=== PATIENT | female | born 1945 | race Caucasian/White ===

== ENCOUNTER → 2017-08-08 11:14 | Outpatient (CLI) | payer MEDICARE, SELFPAY ==
[2017-08-08 12:46] LABS: Hematocrit 28.9 % (37-47); Hemoglobin 8.8 g/dl (12.0-15.0); Mean Corp Hgb Conc 30.4 g/gl (32-36); Mean Corpuscular Hgb 30.2 pg (27.0-32.0); Mean Corpuscular Volume 99.3 fL (81-99); Mean Platelet Vol. 11.2 fl (6.2-12.0); Platelet Count 283 K/mm3 (150-450); RBC Distribution Width CV 14.5 % (11.6-14.6); RBC Distribution Width SD 50.1 fl (35.1-43.9); Red Blood Count 2.91 M/mm3 (4.2-5.4); Scan Indicated on CBC? Y/N NO; White Blood Count 9.8 K/mm3 (4.4-11.0)
[2017-08-08 13:04] LABS: International Normalized Ratio 2.3; Prothrombin Time (Protime)PT. 25.3 SECONDS (11.7-14.9)
== END ==
PROVIDERS: Physician Assistant Medical; Family Provider Family Medicine; PCP Family Medicine; Visit Provider Internal Medicine Cardiovascular Disease
DX: D62 Acute posthemorrhagic anemia (principal); Z79.01 Long term (current) use of anticoagulants; K92.2 Gastrointestinal hemorrhage, unspecified; Z95.1 Presence of aortocoronary bypass graft; E87.6 Hypokalemia; N18.3 Chronic kidney disease, stage 3 (moderate); I25.10 Atherosclerotic heart disease of native coronary artery without angina pectoris; Z95.2 Presence of prosthetic heart valve; Z98.890 Other specified postprocedural states; I70.1 Atherosclerosis of renal artery; I35.9 Nonrheumatic aortic valve disorder, unspecified; I34.0 Nonrheumatic mitral (valve) insufficiency; R53.83 Other fatigue
CPT/HCPCS: 36415; 85027; 85610

== ENCOUNTER → 2017-08-15 15:36 | Outpatient (CLI) | payer MEDICARE, SELFPAY ==
--- NOTE | 2017-08-15 15:43 | CT_ITS ---
STUDY: CTA NECK WITH CONTRAST BILATERAL REASON FOR EXAM: Female, 72 years old. Bilateral carotid stenosis. History of right carotid endarterectomy. RADIATION DOSAGE (If Supplied By Facility): CTDIvol = ( 17.73 ) mGy, DLP = ( 959.25 ) mGycm. Individualized dose optimization techniques were used for this CT.? TECHNIQUE: Axial images of the extracranial carotid arteries at administration of 75 mL Isovue 370 intravenous contrast with sagittal and coronal reconstructions. COMPARISON: July 25, 2016. FINDINGS: Atherosclerotic calcification of the visualized aortic arch. Normal takeoff of the great vessels. There is atherosclerotic calcification of the origins of the great vessels without a hemodynamically significant stenosis. Extensive calcification of the right common carotid artery with a 60-70% narrowing proximal to the bifurcation unchanged. Moderate calcification of the carotid bulb. Minimal atherosclerotic calcification of the proximal right internal carotid artery. Mild atherosclerotic calcification of the distal internal carotid artery upstream, slightly proximal to the skull base. Normal right external carotid artery. No hemodynamically significant stenosis or aneurysmal dilatation of the internal carotid artery. Moderate atherosclerotic calcification of the left common carotid artery. Moderate calcification of the carotid bulb. Atherosclerotic plaque with a 40% stenosis of the proximal left internal carotid artery slightly worse since the prior study. Normal left external carotid artery. No significant stenosis upstream. Normal bilateral vertebral arteries. CT/CTA Neck W/WO Contrast IMPRESSION: No hemodynamically significant stenoses of the internal carotid arteries. 40% stenosis of the proximal left internal carotid artery slightly worse since the prior study. 60-70% stenosis of the distal right common carotid artery upstream not significantly changed. Extensive atherosclerotic calcification of the common carotid artery and carotid bulb bilaterally. Electronically Signed: Mk Reyes MD at 7:40 EDT , Service support ,
[2017-08-15 16:01] LABS: CREATININE FINGERSTICK 1.2 mg/dL (0.55-1.02)
== END ==
PROVIDERS: Family Provider Family Medicine; PCP Family Medicine; Visit Provider Surgery Vascular Surgery
DX: I65.23 Occlusion and stenosis of bilateral carotid arteries (principal)
CPT/HCPCS: 70498; Q9967; A4216

== ENCOUNTER → 2017-09-16 09:42 | Outpatient (CLI) | payer MEDICARE, SELFPAY ==
[2017-09-16 10:29] LABS: Hematocrit 31.7 % (37-47)
[2017-09-16 10:42] LABS: International Normalized Ratio 2.3; Prothrombin Time (Protime)PT. 25.6 SECONDS (11.7-14.9)
[2017-09-16 11:09] LABS: Anion Gap 13 (5-15); BUN 43 mg/dL (7-18); BUN/Creat Ratio 29.7 RATIO (10-20); Calcium,Total 9.1 mg/dL (8.5-10.1); Chloride 109 mmol/L (98-107); Creatinine, Serum 1.45 mg/dL (0.55-1.02); EST Glomerular Filtration Rate 38 mL/min (>60); Est Glom Filt Rate - Afr Amer 46 mL/min (>60); Glucose 150 mg/dL (74-106); Potassium 3.9 mmol/L (3.5-5.1); Sodium Level 145 mmol/L (136-145)
== END ==
PROVIDERS: Family Provider Family Medicine; PCP Family Medicine; Visit Provider Physician Assistant Medical
DX: I50.43 Acute on chronic combined systolic (congestive) and diastolic (congestive) heart failure (principal); N18.3 Chronic kidney disease, stage 3 (moderate); D62 Acute posthemorrhagic anemia
CPT/HCPCS: 36415; 80048; 85014; 85018; 85610

== ENCOUNTER → 2017-10-03 11:03 | Outpatient (CLI) | payer MEDICARE, SELFPAY ==
[2017-10-03 12:09] LABS: Anion Gap 7 (5-15); BUN 45 mg/dL (7-18); BUN/Creat Ratio 29.4 RATIO (10-20); Chloride 108 mmol/L (98-107); Creatinine, Serum 1.53 mg/dL (0.55-1.02); EST Glomerular Filtration Rate 36 mL/min (>60); Est Glom Filt Rate - Afr Amer 43 mL/min (>60); Glucose 153 mg/dL (74-106); Potassium 3.7 mmol/L (3.5-5.1); Sodium Level 143 mmol/L (136-145)
== END ==
PROVIDERS: Family Provider Family Medicine; PCP Family Medicine; Visit Provider Physician Assistant Medical
DX: I50.42 Chronic combined systolic (congestive) and diastolic (congestive) heart failure (principal)
CPT/HCPCS: 36415; 80048

== ENCOUNTER → 2018-01-30 13:59 | Outpatient (CLI) | payer MEDICARE, SELFPAY ==
[2018-01-30 15:03] LABS: Absolute Lymphocyte Count 0.47 X10^3/ul (0.83-4.51); Absolute Neutrophil Count 6.7 X10^3/uL (2.0-7.7); Eosinophil# 0.01 X10^3/uL; Eosinophils% 0.1 % (0-5); Hematocrit 34.9 % (37-47); Hemoglobin 11.4 g/dl (12.0-15.0); Lymphocyte # 0.47 X10^3/ul (4.0); Lymphocyte % 6.4 % (19-41); Mean Corp Hgb Conc 32.7 g/gl (32-36); Mean Corpuscular Hgb 33.3 pg (27.0-32.0); Mean Platelet Vol. 12.5 fl (6.2-12.0); Monocyte# 0.15 X10^3/uL; Neutrophil # 6.73 X10^3/uL (2.7-7.7); Neutrophil % 91.4 % (47-70); Platelet Count 199 K/mm3 (150-450); RBC Distribution Width CV 13.8 % (11.6-14.6); RBC Distribution Width SD 49.8 fl (35.1-43.9); Red Blood Count 3.42 M/mm3 (4.2-5.4); White Blood Count 7.4 K/mm3 (4.4-11.0)
[2018-01-30 15:05] LABS: Differential Indicated SCAN CRITERIA MET; POSITIVE COUNT NO; POSITIVE DIFFERENTIAL YES; POSITIVE MORPHOLOGY NO
[2018-01-30 15:25] LABS: Anion Gap 12 (5-15); BUN 66 mg/dL (7-18); BUN/Creat Ratio 38.2 RATIO (10-20); Calcium,Total 9.2 mg/dL (8.5-10.1); Chloride 102 mmol/L (98-107); Creatinine, Serum 1.73 mg/dL (0.55-1.02); EST Glomerular Filtration Rate 31 mL/min (>60); Est Glom Filt Rate - Afr Amer 37 mL/min (>60); Glucose 262 mg/dL (74-106); Potassium 3.3 mmol/L (3.5-5.1); Sodium Level 143 mmol/L (136-145)
== END ==
PROVIDERS: Family Provider Family Medicine; PCP Family Medicine; Visit Provider Physician Assistant Medical
DX: I50.42 Chronic combined systolic (congestive) and diastolic (congestive) heart failure (principal)
CPT/HCPCS: 36415; 80048; 85025

== ENCOUNTER → 2018-02-13 14:30 | Outpatient (CLI) | payer MEDICARE, SELFPAY ==
--- NOTE | 2018-02-13 14:34 | RAD_ITS ---
STUDY: X-RAY CHEST REASON FOR EXAM: Female, 72 years old. CHF shortness of breath TECHNIQUE: PA and lateral views of the chest. COMPARISON: August 19, 2016 chest Xray FINDINGS: There is slight blunting of the right costophrenic angle. The interstitial markings are mildly prominent slightly worse in prior study. There is no demonstrated pleural abnormality. There is postoperative Change overlying the left chest. Sternotomy wires are seen midline. There is moderate cardiomegaly. Normal mediastinum and christina. Normal visualized pulmonary arteries. Normal visualized aortic arch and descending thoracic aorta. There are diffuse degenerative changes of the visualized thoracic spine. Normal visualized ribs, clavicles, and shoulders. There is no demonstrated abnormality of the visualized soft tissue structures of the upper abdomen. RAD/Chest PA and Lateral IMPRESSION: Cardiomegaly status post sternotomy findings suspicious for mild CHF trace right effusion. Electronically Signed: Adela Gould MD at 17:50 EDT Tel , Service support ,
[2018-02-13 16:04] LABS: Absolute Lymphocyte Count 0.89 X10^3/ul (0.83-4.51); Basophil# 0.01 X10^3/uL; Basophil% 0.1 % (0-1); Eosinophils% 2.7 % (0-5); Hematocrit 33.1 % (37-47); Hemoglobin 10.5 g/dl (12.0-15.0); Lymphocyte # 0.89 X10^3/ul (4.0); Lymphocyte % 8.1 % (19-41); Mean Corp Hgb Conc 31.7 g/gl (32-36); Mean Corpuscular Hgb 32.9 pg (27.0-32.0); Mean Corpuscular Volume 103.8 fL (81-99); Mean Platelet Vol. 12.6 fl (6.2-12.0); Monocyte# 0.82 X10^3/uL; Monocyte% 7.4 % (0-10); Neutrophil # 9.03 X10^3/uL (2.7-7.7); Neutrophil % 81.7 % (47-70); Platelet Count 188 K/mm3 (150-450); RBC Distribution Width CV 14.6 % (11.6-14.6); RBC Distribution Width SD 55.7 fl (35.1-43.9); Red Blood Count 3.19 M/mm3 (4.2-5.4); White Blood Count 11.1 K/mm3 (4.4-11.0)
[2018-02-13 16:06] LABS: POSITIVE COUNT NO; POSITIVE DIFFERENTIAL NO; POSITIVE MORPHOLOGY NO
[2018-02-13 16:31] LABS: International Normalized Ratio 3.4; Prothrombin Time (Protime)PT. 34.8 SECONDS (11.7-14.9)
[2018-02-13 16:45] LABS: ALB/GLOB Ratio 0.9 RATIO (0.9-2.4); AST(SGOT) 17 U/L (15-37); Alanine Aminotransfer ALT/SGPT 29 U/L (13-56); Albumin, Serum 2.7 g/dL (3.2-5.0); Alkaline Phosphatase 76 U/L (45-117); Anion Gap 8 (5-15); BUN 55 mg/dL (7-18); BUN/Creat Ratio 31.4 RATIO (10-20); Calcium,Total 9.1 mg/dL (8.5-10.1); Chloride 105 mmol/L (98-107); Creatinine, Serum 1.75 mg/dL (0.55-1.02); EST Glomerular Filtration Rate 31 mL/min (>60); Est Glom Filt Rate - Afr Amer 37 mL/min (>60); Globulin 3.1 g/dL (2.2-4.2); Glucose 129 mg/dL (74-106); Potassium 3.4 mmol/L (3.5-5.1); Protein, Total 5.8 g/dL (6.4-8.2); Sodium Level 145 mmol/L (136-145)
== END ==
PROVIDERS: Internal Medicine Cardiovascular Disease; Family Provider Family Medicine; PCP Family Medicine; Referring Provider Physician Assistant Medical; Visit Provider Physician Assistant Medical
DX: I50.42 Chronic combined systolic (congestive) and diastolic (congestive) heart failure (principal); I50.43 Acute on chronic combined systolic (congestive) and diastolic (congestive) heart failure; Z79.01 Long term (current) use of anticoagulants; Z95.2 Presence of prosthetic heart valve
CPT/HCPCS: 36415; 71046; 80053; 83880; 85025; 85610

== ENCOUNTER 2018-02-16 14:28 | Inpatient (IN) | payer MEDICARE, SELFPAY ==
[2018-02-16 14:45] VITALS: PULSE 63
[2018-02-16 15:10] VITALS: BMI 30.7
--- NOTE | 2018-02-16 15:14 | PCM.HP.STD ---
<South Bhakta - Last Filed: 02/16/18 15:59> Problem List (1) CHF (congestive heart failure) Status: Acute (2) Hemoptysis Status: Acute (3) H/O mechanical aortic valve replacement Status: Chronic (4) CKD (chronic kidney disease), stage III Status: Chronic (5) Primary pulmonary hypertension Status: Chronic (6) Nicotine abuse Status: Chronic (7) S/P CABG x 3 Status: Chronic (8) Gastrointestinal bleed Status: Chronic (9) Chronic anticoagulation Status: Chronic (10) CAD (coronary artery disease) Status: Chronic (11) History of CEA (carotid endarterectomy) Status: Chronic (12) FELICIA (renal artery stenosis) Status: Chronic Comment: w stent (13) HLD (hyperlipidemia) Status: Chronic (14) Diabetes Status: Chronic History of Present Illness Date of Admission: 02/16/18 Chief Complaint: SOB The patient is a 72 year old F with a complicated PMhx including CAD with prior CABG, mechanical aortic valve on chronic anticoagulation, anemia, GI bleeding with no identifiable source, COPD, ongoing nicotine abuse, hx of breast cancer s/p mastectomy, prior CVA with residual right eye blindness, CKDII with hx of renal artery stenosis, DMt2, with hx of hemoptysis for at least one month, hospitalization about 1 month ago, who is being direct admitted to the PCU from Dr. Medina's office for worsening of CHF marked by increased SOB and LE edema. She saw Dr. Medina in the office on Friday for the same issues and was offered admission, however she wanted to try to be treated at home first. She was transitioned to torsemide and metolazone at that time, however her symptoms worsened at home with about 2-3 more pounds gained instead of losing. She also noted her BP was running low with systolic in the 70's and 80's. She also complains of intermittent chills and ongoing productive cough. Cough is sometimes dark red or pink. She had an outpatient CT and was supposed to see [facility] for ongoing hemoptysis. We do not have the results at this time. She appears mildly dyspneic however it not requiring O2 at this time. She has significant orthopnea and PND. She has increased wheezing. She denies CP, tightness, heaviness, and palpitations. She has been having LH/dizziness. She continues to smoke about 1 ppd. [] Past Medical History Past Medical History (Chronic Problems): Chronic Problems (Last Reviewed 11/28/17 @ 13:23 by Priyanka Castano) H/O mechanical aortic valve replacement (Chronic) CKD (chronic kidney disease), stage III (Chronic) Renal insufficiency (Chronic) Nonrheumatic mitral (valve) insufficiency (Chronic) Atherosclerotic heart disease of [place] coronary artery without angina pectoris (Chronic) CABG, MOLINA graft to LAD, SVG to OM 1, SVG to acute marginal; Primary pulmonary hypertension (Chronic) Aortic valve disease (Chronic) Sinus bradycardia (Chronic) Cardiac arrhythmia (Chronic) Abnormal electrocardiogram (Chronic) Aortocoronary bypass status (Chronic) CABG, MOLINA graft to LAD, SVG to OM 1, SVG to acute marginal; care home use of drug (Chronic) Other nonspecific abnormal cardiovascular system function study (Chronic) Palpitations (Chronic) Nicotine abuse (Chronic) Diastolic dysfunction (Chronic) Bilateral carotid bruits (Chronic) Orthostatic hypotension (Chronic) Systolic CHF, chronic (Chronic) 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 (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) Hypokalemia (Chronic) S/P CABG x 3 (Chronic) Gastrointestinal bleed (Chronic) Anemia due to blood loss, acute (Chronic) Chronic anticoagulation (Chronic) Chronic renal failure, stage 3 (moderate) (Chronic) CAD (coronary artery disease) (Chronic) History of aortic valve replacement with metallic valve (Chronic) History of CEA (carotid endarterectomy) (Chronic) FELICIA (renal artery stenosis) (Chronic) w stent HTN (hypertension) (Chronic) COPD (chronic obstructive pulmonary disease) (Chronic) Tobacco dependence (Chronic) Mitral valve insufficiency (Chronic) Tricuspid valve insufficiency (Chronic) HLD (hyperlipidemia) (Chronic) Diabetes (Chronic) Diastolic CHF, chronic (Chronic) Carotid artery disease (Chronic) Crohn's colitis (Chronic) Medical History: Medical History (Last Reviewed 11/28/17 @ 13:23 by Pryianka Castano) Renal insufficiency (Chronic) N28.9 Nonrheumatic mitral (valve) insufficiency (Chronic) I34.0 Atherosclerotic heart disease of [place] coronary artery without angina pectoris (Chronic) I25.10 CABG, MOLINA graft to LAD, SVG to OM 1, SVG to acute marginal; Primary pulmonary hypertension (Chronic) I27.0 Aortic valve disease (Chronic) I35.9 Sinus bradycardia (Chronic) R00.1 Cardiac arrhythmia (Chronic) I49.9 Palpitations (Chronic) R00.2 Diastolic dysfunction (Chronic) I51.9 Bilateral carotid bruits (Chronic) R09.89 Orthostatic hypotension (Chronic) I95.1 Systolic CHF, chronic (Chronic) I50.22 care home (current) use of anticoagulants (Chronic) Z79.01 Hypokalemia (Chronic) E87.6 CAD (coronary artery disease) (Chronic) I25.10 FELICIA (renal artery stenosis) (Chronic) I70.1 w stent HTN (hypertension) (Chronic) I10 HLD (hyperlipidemia) (Chronic) E78.5 Diastolic CHF, chronic (Chronic) I50.32 Dizziness and giddiness R42 Dyspnea R06.00 Edema R60.9 Heartburn R12 Palpitations R00.2 Allergies ciprofloxacin [From Cipro] Allergy (Verified 02/16/18 13:17) Swelling mesalamine Allergy (Verified 02/16/18 13:17) SOB/abdominal cramps Opioids - Morphine Analogues Adverse Reaction (Severe, Verified 02/16/18 13:17) emesis adhesive Adverse Reaction (Verified 02/16/18 13:17) Other clonidine Adverse Reaction (Verified 02/16/18 13:17) Other tramadol Adverse Reaction (Verified 02/16/18 13:17) Nausea/Vom/Diarrhea Home Medications: Ambulatory Orders Medication Instructions Recorded Albuterol Inhaler [Ventolin Hfa] 2 puff INHALATION Q6H PRN PRN 09/14/15 Levothyroxine [Synthroid] 75 mcg PO DAILY 09/14/15 Mometasone Furoate [Asmanex 220 2 puff INHALATION BID 09/14/15 mcg Twisthaler] Sertraline HCl [Zoloft] 100 mg PO QHS 09/14/15 Potassium Chloride [K-Dur] 40 meq PO BID 07/15/16 Simvastatin [Zocor] 80 mg PO QHS 07/15/16 Acetaminophen [Tylenol] 325 mg PO Q6H PRN PRN 11/25/16 amoxicillin 500 mg capsule See Rx Instructions PO .Dental 07/22/17 procedure cap glimepiride 1 mg tablet 1 mg PO QAM tab 07/25/17 allopurinol 100 mg tablet 100 mg PO DAILY tab 09/16/17 nitroglycerin 0.4 mg sublingual 0.4 mg SUBLINGUAL Q5-15M PRN #25 11/28/17 tablet tab bumetanide 1 mg tablet 2 mg PO BID tab 01/30/18 Calcitriol [Rocaltrol] 0.25 mcg PO DAILY 02/16/18 Ergocalciferol [Vitamin D] 50,000 unit PO Q30D 02/16/18 Metolazone [Zaroxolyn] 2.5 mg PO DAILY 02/16/18 Torsemide [Demadex] 20 mg PO .TID 02/16/18 Warfarin Sodium [Coumadin] 1 mg PO SUMOTUWETH 02/16/18 Warfarin [Coumadin ([facility])] 2 mg PO FRSA 02/16/18 Surgical History: Surgical History (Last Updated 02/16/18 @ 13:19 by Honey Oshea) H/O aortic valve replacement (Resolved) Z95.2 05/15/06 AVR with #23mm. 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 Denies: Fever, Weight Change HEENT: Denies: Head Aches, Sinus Congestion, Sinus Drainage Cardiovascular: Reports: Edema, Light Headedness, Orthopnea, Paroxysmal Noc. Dyspnea. Denies: Chest Pain, Chest Pressure, Chest Tightness, Heaviness, Palpitations Respiratory: Reports: Cough, Hemoptysis, Shortness of Breath, Shortness of breath at rest, Shortness of breath upon exertion, Sputum production, Wheezing Gastrointestinal: Denies: Abdominal Pain, Nausea, Vomiting Genitourinary: Denies: Dysuria Musculoskeletal: Denies: Joint Pain, Joint Tenderness Skin: Denies: Rash, Wounds Neurological: Denies: Numbness, Tingling, Focal weakness Psychiatric: Denies: Anxiety, Depression, Homicidal Ideations, Suicidal Ideations Hematologic/ Lymphatic: Denies: Easy Bruising, Easy Bleeding VTE Information - Inpt Only VTE Present on Admission: No VTE Mechan Device Prophylaxis: None VTE Pharm Prophylaxis ordered?: Yes Patient Problems: Active and Suspected Problems (Last Reviewed 11/28/17 @ 13:23 by Priyanka Castano) CHF (congestive heart failure) (Acute) Hemoptysis (Acute) - Physical Exam General: Alert, Oriented x3, Cooperative HEENT: Atraumatic, PERRLA, EOMI, Normocephalic Neck: Supple, No JVD, Negative Carotid Bruits Lungs: Diminished, Rales, Wheezes Cardiovascular: Regular rate, Murmur - 3/6 systolic murmur with closing snap Abdomen: Bowel Sounds Present, Soft, Non Tender Extremities: Capillary Refill Less than 3 Seconds, Edema Skin: No rashes, No breakdown Musculoskeletal: No Tenderness to Palpation of Joints or Extremities Neurological: Cranial nerves II-XII grossly intact Psych/Mental Status: Normal Affect, Appropriate, Alert and oriented to time, place, person, mood and affect Assessment/Plan All Active Problems (Last Reviewed 11/28/17 @ 13:23 by Priyanka Castano) CHF (congestive heart failure) (Acute) Hemoptysis (Acute) Chronic combined systolic and diastolic CHF (congestive heart failure) (Acute) H/O aortic valve replacement (Resolved) WILLIAN (acute kidney injury) (Resolved) Abnormal cardiac enzyme level (Resolved) Chest pain (Resolved) Dehydration (Resolved) Hypokalemia (Resolved) Renal abscess (Resolved) Sinus bradycardia (Resolved) 1. Acute on chronic intermediate CHF exacerbation - at this time this is the most acute issue, she has increased SOB, PND, orthopnea, LE edema with elevated BNP and CXR c/w CHF and failure of outpatient diuretics. D/w Dr. Medina, lasix IV to be started and he will see pt in house. Check troponin, fluid restrict, sodium restrict, ricardo wrap LE, repeat CXR. Obtain new Echo, last EF reportedly 45%. Pt not on beta hiro or ricardo inhibitor. 2. Hemoptysis - ongoing daily for at least a month. with recent mildly elevated white count, chills at home, hx heavy smoking, breast cancer. Her CXR on friday did not show pna. Consult pulmonary medicine. Consider diagnostic thoracentesis. Possibly underlying pneumonia or malignant process. Had outpatient CT, request record. Defer abx for now unless she develops fever or toxic appearance. 3. Hx Mechanical Aortic Valve - unfortunately the patient will need to remain on coumadin. This is also complicated by a hx of GI bleeding earlier this year. May need to consider transition to bioprosthetic valve with ongoing issues. Closely monitor H/H with coumadin therapy. 4. COPD - she is wheezy however likely 2/2 CHF. Add scheduled aerosols. Defer steroids at this time until evaluated by Pulm. Pt without increased O2 demand. 5. DMt2 - SSI, hold amaryl 6. Hx CAD prior CABG 7. CKD III - does not appear worse than baseline. Closely trend with increased diuretics. Prior renal artery stent. 8. HLD - statin 9. Hx CVA - residual right eye blindness. Warfarin/Statin 10. Hx FELICIA with prior stenting 11. Hx Carotid disease with prior CEA. 12. Nicotine abuse - patch if desired. Smoked since teenager. ~1ppd currently. 13. Hx BrCa - in remission s/p mastectomy. 14. Hypothyroid - synthroid 15. Anxiety - continue home meds. DVT ppx: check INR, continue coumadin DC planning: PTOT This patient was seen by South Bhakta PA-C under the supervision of Doctor Anderson. <Odilon Anderson F - Last Filed: 02/16/18 17:57> History of Present Illness The patient is a 72 year old F [] Past Medical History Medical History: Medical History (Last Reviewed 11/28/17 @ 13:23 by Priyanka Castano) Renal insufficiency (Chronic) N28.9 Nonrheumatic mitral (valve) insufficiency (Chronic) I34.0 Atherosclerotic heart disease of [place] coronary artery without angina pectoris (Chronic) I25.10 CABG, MOLINA graft to LAD, SVG to OM 1, SVG to acute marginal; Primary pulmonary hypertension (Chronic) I27.0 Aortic valve disease (Chronic) I35.9 Sinus bradycardia (Chronic) R00.1 Cardiac arrhythmia (Chronic) I49.9 Palpitations (Chronic) R00.2 Diastolic dysfunction (Chronic) I51.9 Bilateral carotid bruits (Chronic) R09.89 Orthostatic hypotension (Chronic) I95.1 Systolic CHF, chronic (Chronic) I50.22 care home (current) use of anticoagulants (Chronic) Z79.01 Hypokalemia (Chronic) E87.6 CAD (coronary artery disease) (Chronic) I25.10 FELICIA (renal artery stenosis) (Chronic) I70.1 w stent HTN (hypertension) (Chronic) I10 HLD (hyperlipidemia) (Chronic) E78.5 Diastolic CHF, chronic (Chronic) I50.32 Dizziness and giddiness R42 Dyspnea R06.00 Edema R60.9 Heartburn R12 Palpitations R00.2 Allergies ciprofloxacin [From Cipro] Allergy (Verified 02/16/18 13:17) Swelling mesalamine Allergy (Verified 02/16/18 13:17) SOB/abdominal cramps Opioids - Morphine Analogues Adverse Reaction (Severe, Verified 02/16/18 13:17) emesis adhesive Adverse Reaction (Verified 02/16/18 15:28) blisters tegaderm ok clonidine Adverse Reaction (Verified 02/16/18 15:28) Unknown tramadol Adverse Reaction (Verified 02/16/18 13:17) Nausea/Vom/Diarrhea Surgical History: Surgical History (Last Updated 02/16/18 @ 13:19 by Honey Oshea) H/O aortic valve replacement (Resolved) Z95.2 05/15/06 AVR with #23mm. on-x valve; Aortocoronary bypass status (Chronic) Z95.1 CABG, MOLINA graft to LAD, SVG to OM 1, SVG to acute marginal; History of renal stent Z98.890 H/O carotid endarterectomy Z98.890 History of cholecystectomy Z90.49 History of hysterectomy Z90.710 History of mastectomy Z90.10 left - *Family History Maternal Family History: Family History (Last Reviewed 02/16/18 @ 13:20 by Honey Oshea) Mother CVA (cerebral vascular accident) Hypertension Sister Myocardial infarction Breast cancer Sister CVA (cerebral vascular accident) Myocardial infarction Breast cancer Son Myocardial infarction CAD (coronary artery disease) - Physical Exam Vital Signs Temp Pulse Resp BP Pulse Ox 98.2 F 60 18 131/66 H 96 02/16/18 15:15 02/16/18 15:15 02/16/18 15:15 02/16/18 15:15 02/16/18 15:15 Oxygen Delivery Method Room Air Weight: 162 lb 14.746 oz Body Mass Index (BMI) 30.7 Laboratory Tests Past 24 Hrs 02/16/18 02/16/18 02/16/18 16:32 16:32 16:32 WBC 7.1 RBC 2.97 L Hgb 9.8 L Hct 30.5 L MCV 102.7 H MCH 33.0 H MCHC 32.1 RDW 14.6 RDW Differential 54.6 H Plt Count 163 MPV 11.8 Immature Gran % (Auto) 0.100 Neut % (Auto) 76.2 H Lymph % (Auto) 11.2 L [place] % (Auto) 8.3 Eos % (Auto) 3.9 Baso % (Auto) 0.3 Absolute Neuts (auto) 5.4 Absolute Lymphs (auto) 0.80 L Total Counted Not Reportable PT 31.8 H INR 3.1 Sodium 144 Potassium 2.9 L Chloride 105 Carbon Dioxide 30.0 Anion Gap 9 BUN 53 H Creatinine 1.81 H Estim Creat Clear Calc 21.82 Est GFR (MDRD) Af Amer 36 L Est GFR (MDRD) Non-Af 29 L BUN/Creatinine Ratio 29.3 H Glucose 123 H Calcium 8.6 Code Visit Addendum: Dr. Anderson I personally examined the patient and reviewed the chart. I agree with the above. 72-year-old female with a history of heart failure presenting in an acute exacerbation. 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 She is having increased shortness of breath orthopnea and lower extremity edema. Will plan to IV diuresis her CHF with Lasix 40 mg IV twice daily. Is also been having hemoptysis that has improved lately, however she does have a history of smoking and and it appears that she had an outpatient CT done on in [place] without contrast and it was indeterminant read of whether or not she had pneumonia or a mass. Given her hemoptysis, will plan to consult pulmonology for possible bronchoscopy once her cardiac issues improve. Her hemoptysis is complicated by a history of GI bleed and anticoagulation for mechanical aortic valve that was placed for aortic valve regurgitation. The likely culprit for the GI bleeding in the past is an AVM. Given the mechanical valve she will need to be continued on anticoagulation and therefore will monitor H&H's. Inpatient E&M: 12524 Init Hosp L3
[2018-02-16 15:15] VITALS: BP 131/66; PULSE 60; RESP 18; TEMP 36.8; O2SAT 96
[2018-02-16 15:41] VITALS: BMI 73.9
--- NOTE | 2018-02-16 16:12 | RAD_ITS ---
STUDY: X-RAY CHEST REASON FOR EXAM: Female, 72 years old. Shortness of breath TECHNIQUE: Frontal and lateral views of the chest were obtained. COMPARISON: February 13, 2018 FINDINGS: The lungs are hyperinflated. There are increased interstitial markings throughout the lungs. There are no focal airspace opacities. There is no demonstrated pleural abnormality. There is moderate enlargement of the cardiac silhouette. Sternotomy wires are present. An aortic valve prosthesis is present. The mediastinum and hilar regions are unremarkable. The central vessels are indistinct. There is atherosclerotic calcification of the thoracic aorta. There are diffuse degenerative changes of the visualized spine. The visualized ribs, clavicles, and shoulders are unremarkable. There are numerous surgical clips on the left side. RAD/Chest PA and Lateral IMPRESSION: There is moderate enlargement of the cardiac silhouette with vascular congestion. There is no obvious effusion. There is stable COPD with mild diffuse fibrosis. Electronically Signed: Karli Mancilla MD at 17:12 EDT Tel Direct: [phone], Service support ,
[2018-02-16 16:55] LABS: Absolute Neutrophil Count 5.4 X10^3/uL (2.0-7.7); Basophil# 0.02 X10^3/uL; Basophil% 0.3 % (0-1); Eosinophil# 0.28 X10^3/uL; Eosinophils% 3.9 % (0-5); Hematocrit 30.5 % (37-47); Hemoglobin 9.8 g/dl (12.0-15.0); Lymphocyte % 11.2 % (19-41); Mean Corp Hgb Conc 32.1 g/gl (32-36); Mean Corpuscular Volume 102.7 fL (81-99); Mean Platelet Vol. 11.8 fl (6.2-12.0); Monocyte# 0.59 X10^3/uL; Monocyte% 8.3 % (0-10); Neutrophil # 5.42 X10^3/uL (2.7-7.7); Neutrophil % 76.2 % (47-70); Platelet Count 163 K/mm3 (150-450); RBC Distribution Width CV 14.6 % (11.6-14.6); RBC Distribution Width SD 54.6 fl (35.1-43.9); Red Blood Count 2.97 M/mm3 (4.2-5.4); White Blood Count 7.1 K/mm3 (4.4-11.0)
[2018-02-16 16:57] LABS: POSITIVE COUNT NO; POSITIVE DIFFERENTIAL NO; POSITIVE MORPHOLOGY NO
[2018-02-16 17:02] LABS: International Normalized Ratio 3.1; Prothrombin Time (Protime)PT. 31.8 SECONDS (11.7-14.9)
[2018-02-16 17:07] LABS: Anion Gap 9 (5-15); BUN 53 mg/dL (7-18); BUN/Creat Ratio 29.3 RATIO (10-20); Calcium,Total 8.6 mg/dL (8.5-10.1); Chloride 105 mmol/L (98-107); Creatinine, Serum 1.81 mg/dL (0.55-1.02); EST Glomerular Filtration Rate 29 mL/min (>60); Est Glom Filt Rate - Afr Amer 36 mL/min (>60); Estimated Creatinine Clearance 21.82 ml/min; Glucose 123 mg/dL (74-106); Potassium 2.9 mmol/L (3.5-5.1); Sodium Level 144 mmol/L (136-145)
[2018-02-16] MEDS: Furosemide 40 MG/4 ML Vial IV (17:38)
[2018-02-16] MEDS: 0.9% NaCl Peripheral Flush Adult/Peds IV ×2 (17:38→20:08)
--- NOTE | 2018-02-16 17:44 | PCM.CONS.C ---
Problem List (1) Chronic combined systolic and diastolic CHF (congestive heart failure) Status: Acute (2) H/O mechanical aortic valve replacement Status: Chronic (3) Atherosclerotic heart disease of [place] coronary artery without angina pectoris Status: Chronic Qualifiers: [place] vs. transplanted heart: [place] heart Qualified Code(s): I25.10 - Atherosclerotic heart disease of [place] coronary artery without angina pectoris Comment: CABG, MOLINA graft to LAD, SVG to OM 1, SVG to acute marginal; (4) Aortocoronary bypass status Status: Chronic Comment: CABG, MOLINA graft to LAD, SVG to OM 1, SVG to acute marginal; (5) FELICIA (renal artery stenosis) Status: Chronic Comment: w stent (6) History of CEA (carotid endarterectomy) Status: Chronic (7) HLD (hyperlipidemia) Status: Chronic Qualifiers: (8) HTN (hypertension) Status: Chronic Qualifiers: Hypertension type: essential hypertension Qualified Code(s): I10 - Essential (primary) hypertension (9) Diabetes Status: Chronic (10) Renal insufficiency Status: Chronic (11) COPD (chronic obstructive pulmonary disease) Status: Chronic (12) Hemoptysis Status: Acute (13) Gastrointestinal bleed Status: Chronic (14) Anemia Status: Chronic Reason for Consult Date of Consultation: 02/16/18 History of Present Illness: The patient is a 72 year old white female with a past medical history of combined systolic/diastolic mediated CHF, status post aortic valve replacement with a mechanical aortic valve (23 mm ON X prosthetic mechanical mitral valve apparatus), CAD status post CABG (MOLINA to the LAD, SVG to the OM, SVG to the acute marginal), renal artery stenosis status post renal artery percutaneous intervention, carotid artery disease that is post carotid endarterectomy, hyperlipidemia, hypertension, diabetes mellitus, renal insufficiency, COPD, hemoptysis, history of GI bleeding, and anemia who is referred for concerns of continued acute on chronic combined systolic/diastolic mediated CHF. She has been undergoing evaluation and care as an outpatient for concerns of progressive shortness of breath/dyspnea as well as orthopnea and lower extremity peripheral pitting edema. This is in the setting of a history of hemoptysis for which she is pending future outpatient pulmonary evaluation care in [place], [place]. In the interim she has been evaluated in the outpatient setting and has her diuretics altered. Unfortunately she has had no significant improvement in her symptoms or her physical examination findings. She notes that her weight has actually gone up but not down. Thus status post review of her case this day in the outpatient setting it was recommended that she be further evaluated in the inpatient setting for her cardiopulmonary conditions, etc. She has denied ongoing chest discomfort. She has not noted any obvious palpitations or rapid heart rate. There is been no near syncope or syncope. She has had recent laboratory studies and chest x-rays. She has also had recent hospitalizations in [place], [place] for concerns of her symptoms, her hemoptysis, and a previous evaluation for gastrointestinal bleeding. She has received PRBCs in the past based upon concerns of her gastrointestinal bleeding process.[] Past Medical History Allergies/Adverse Reactions: Allergies ciprofloxacin [From Cipro] Allergy (Verified 02/16/18 13:17) Swelling mesalamine Allergy (Verified 02/16/18 13:17) SOB/abdominal cramps Opioids - Morphine Analogues Adverse Reaction (Severe, Verified 02/16/18 13:17) emesis adhesive Adverse Reaction (Verified 02/16/18 15:28) blisters tegaderm ok clonidine Adverse Reaction (Verified 02/16/18 15:28) Unknown tramadol Adverse Reaction (Verified 02/16/18 13:17) Nausea/Vom/Diarrhea Home Medications: Ambulatory Orders Medication Instructions Recorded Albuterol Inhaler [Ventolin Hfa] 2 puff INHALATION Q6H PRN PRN 09/14/15 Levothyroxine [Synthroid] 75 mcg PO DAILY 09/14/15 Mometasone Furoate [Asmanex 220 2 puff INHALATION BID 09/14/15 mcg Twisthaler] Sertraline HCl [Zoloft] 100 mg PO QHS 09/14/15 Potassium Chloride [K-Dur] 40 meq PO BID 07/15/16 Simvastatin [Zocor] 80 mg PO QHS 07/15/16 Acetaminophen [Tylenol] 325 mg PO Q6H PRN PRN 11/25/16 amoxicillin 500 mg capsule See Rx Instructions PO .Dental 07/22/17 procedure cap glimepiride 1 mg tablet 1 mg PO QAM tab 07/25/17 allopurinol 100 mg tablet 100 mg PO DAILY tab 09/16/17 nitroglycerin 0.4 mg sublingual 0.4 mg SUBLINGUAL Q5-15M PRN #25 11/28/17 tablet tab bumetanide 1 mg tablet 2 mg PO BID tab 01/30/18 Calcitriol [Rocaltrol] 0.25 mcg PO DAILY 02/16/18 Ergocalciferol [Vitamin D] 50,000 unit PO Q30D 02/16/18 Metolazone [Zaroxolyn] 2.5 mg PO DAILY 02/16/18 Torsemide [Demadex] 20 mg PO .TID 02/16/18 Warfarin Sodium [Coumadin] 1 mg PO SUMOTUWETH 02/16/18 Warfarin [Coumadin ([facility])] 2 mg PO FRSA 02/16/18 Past Medical History (Chronic Problems): Chronic Problems (Last Reviewed 11/28/17 @ 13:23 by Priyanka Castano) H/O mechanical aortic valve replacement (Chronic) CKD (chronic kidney disease), stage III (Chronic) Anemia (Chronic) Renal insufficiency (Chronic) Nonrheumatic mitral (valve) insufficiency (Chronic) Atherosclerotic heart disease of [place] coronary artery without angina pectoris (Chronic) CABG, MOLINA graft to LAD, SVG to OM 1, SVG to acute marginal; Primary pulmonary hypertension (Chronic) Aortic valve disease (Chronic) Sinus bradycardia (Chronic) Cardiac arrhythmia (Chronic) Abnormal electrocardiogram (Chronic) Aortocoronary bypass status (Chronic) CABG, MOLINA graft to LAD, SVG to OM 1, SVG to acute marginal; oysterman use of drug (Chronic) Other nonspecific abnormal cardiovascular system function study (Chronic) Palpitations (Chronic) Nicotine abuse (Chronic) Diastolic dysfunction (Chronic) Bilateral carotid bruits (Chronic) Orthostatic hypotension (Chronic) Systolic CHF, chronic (Chronic) oysterman (current) use of anticoagulants (Chronic) Hypokalemia (Chronic) S/P CABG x 3 (Chronic) Gastrointestinal bleed (Chronic) Anemia due to blood loss, acute (Chronic) Chronic anticoagulation (Chronic) Chronic renal failure, stage 3 (moderate) (Chronic) CAD (coronary artery disease) (Chronic) History of aortic valve replacement with metallic valve (Chronic) History of CEA (carotid endarterectomy) (Chronic) FELICIA (renal artery stenosis) (Chronic) w stent HTN (hypertension) (Chronic) COPD (chronic obstructive pulmonary disease) (Chronic) Tobacco dependence (Chronic) Mitral valve insufficiency (Chronic) Tricuspid valve insufficiency (Chronic) HLD (hyperlipidemia) (Chronic) Diabetes (Chronic) Diastolic CHF, chronic (Chronic) Carotid artery disease (Chronic) Crohn's colitis (Chronic) Surgical History: coronary bypass surgery, - - CABG (MOLINA to LAD; SVG to OM; SVG to acute marginal) AVR (23 mm ON-X valve) Psychiatric History: No pertinent psych hx AUDIT LEAD History: No pertinent AUDIT LEAD history - *Family History Maternal Family History: Family History (Last Reviewed 02/16/18 @ 13:20 by Honey Oshea) Mother CVA (cerebral vascular accident) Hypertension Sister Myocardial infarction Breast cancer Sister CVA (cerebral vascular accident) Myocardial infarction Breast cancer Son Myocardial infarction CAD (coronary artery disease) History Items: No pertinent history Lives: Alone Smoking Status: Heavy Smoker (>10/day) Tobacco Use: Cigarettes Alcohol: None Drugs: None Review of Systems - Review of Systems General: Denies: Fever, Night Sweats, Fatigue Cardiovascular: Reports: Shortness of Breath, Shortness of Breath at Rest, Shortness of Breath with Exertion, Orthopnea, PND, Peripheral Edema. Denies: Chest Discomfort, Palpitations, Lightheadedness, Dizziness, Near Syncope, Syncope Respiratory: Reports: Sputum Production, Hemoptysis, Shortness of Breath, Wheezing Gastrointestinal: Denies: Hematemesis, Hematochezia, Melena Genitourinary: Denies: Dysuria, Hematuria Skin: Denies: Rash Objective: Vital Signs Temp Pulse Resp BP Pulse Ox 98.2 F 60 18 131/66 H 96 02/16/18 15:15 02/16/18 15:15 02/16/18 15:15 02/16/18 15:15 02/16/18 15:15 Oxygen Delivery Method Room Air Weight: 162 lb 14.746 oz Body Mass Index (BMI) 30.7 02/16/18 16:32: WBC 7.1, RBC 2.97 L, Hgb 9.8 L, Hct 30.5 L, MCV 102.7 H, MCH 33.0 H, MCHC 32.1, RDW 14.6, RDW Differential 54.6 H, Plt Count 163, MPV 11.8, Immature Gran % (Auto) 0.100, Neut % (Auto) 76.2 H, Lymph % (Auto) 11.2 L, [place] % (Auto) 8.3, Eos % (Auto) 3.9, Baso % (Auto) 0.3, Absolute Neuts (auto) 5.4, Total Counted Not Reportable 02/16/18 16:32: PT 31.8 H, INR 3.1 02/16/18 16:32: Sodium 144, Potassium 2.9 L, Chloride 105, Carbon Dioxide 30.0, Anion Gap 9, BUN 53 H, Creatinine 1.81 H, Est GFR (MDRD) Af Amer 36 L, Est GFR (MDRD) Non-Af 29 L, BUN/Creatinine Ratio 29.3 H, Glucose 123 H, Calcium 8.6 ECHO: 08/20/2016: Left ventricle: LVEF 50%; postoperative septal wall motion; severe concentric LVH; moderate to severe left atrial enlargement; mild right atrial enlargement; mild to moderate mitral annular calcification; anterior leaflet diffuse mitral valve thickening; mild mitral valve stenosis; mild MR; moderate TR; stable appearing mechanical aortic valve apparatus; mild PI; estimated RV systolic pressure of 62 mmHg compatible pulmonary hypertension; decreased diastolic compliance Stress Test: 02/19/2011: Pharmacologic stress nuclear imaging study: Considered concerning for stress-induced myocardial ischemia in the mid to distal anterior and anteroapical segments with a gated LVEF of 58% Cardiac Cath: 02/18/2006: Elevated left ventricular end-diastolic pressure compatible decreased diastolic compliance; secondary pulmonary hypertension possibly related to underlying cardiovascular findings and/or separate pulmonary disease process; no obvious evidence of intracardiac shunting; left ventricle preserved with an LVEF of 60%; left main normal; LAD with mid vessel 50-75% stenosis; LCx with ostial 75-85% stenosis and mid 75% stenosis; RCA small nondominant vessel with no angiographically significant appearing disease; aortic valve with moderate to moderately severe AI; aortic root calcified; mitral valve with mild MR partially catheter/PVC induced PCI: 03/12/2011: [place] issue: Impression: Moderately severe systemic hypertension; three-vessel CAD with 2 of 3 patent grafts (SVG to OM occluded, SVG to RVM patent, MOLINA to LAD patent), LCx disease with recommendation for medical management, left renal artery stenosis-heavily calcified at the ostium-stented with a 5 mm express bare-metal stent CT Surgery: 05/15/2006: [facility]: MOLINA to LAD; SVG to the OM; SVG to the acute marginal branch; aortic valve replacement with a 23 mm ON X valve-mechanical prosthesis CXR: There evaluation: Increased cardiac silhouette compatible with cardiomegaly; calcification of the thoracic aorta; increased pulmonary vascularity; please see official report Assessment/Plan 1. 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 She has not had improvement with adjustment of outpatient medical therapy/diuretic therapy including combined diuretics. Thus she has been brought into the hospital for further evaluation and care. She will be monitored. Her laboratory studies will be followed. She is already had a follow-up chest x-ray. She will be treated medically. This will include IV diuretics. If she does not respond to pulsed IV furosemide therapy then she may have an attempt at continuous infusion IV furosemide therapy. She may need intermittent IV diuril therapy as well. 2. Status post aortic valve replacement-mechanical The present time the patient does have a underlying mechanical aortic valve apparatus. On examination she does appear to have a crisp prosthetic click. Based upon her ongoing issues she will be reassessed with a transthoracic echocardiogram to evaluate her aortic valve apparatus as well as her overall LV size, wall motion, and systolic function. She will need to continue AHA antibiotic prophylaxis as deemed appropriate. She will also need to continue anticoagulation therapy with warfarin/Coumadin with adjustment as deemed appropriate. 3. CAD status post CABG The patient has not had ongoing symptoms of classic angina pectoris nor has she been found to have evidence of acute coronary syndrome/[place]. She will be monitored and reassessed as deemed appropriate. Depending upon her clinical course she may or may not need further evaluation of her coronary or graft status noninvasively or invasively. 4. Peripheral arterial occlusive disease The patient does have a history of underlying renal artery stenosis having undergone left renal artery percutaneous intervention as noted above as well as carotid artery disease having undergone carotid endarterectomy. Depending upon her clinical course, vital signs, etc. consideration will be given as to whether or not she needs reassessment of her renal artery status. 5. Hyperlipidemia She will continue lipid-lowering therapy as deemed appropriate. 6. Hypertension Her blood pressures will be followed. Her medications can be adjusted as needed. 7. Diabetes mellitus She will continue under the care of internal medicine for this. 8. Renal insufficiency She does have a history of renal insufficiency. This has been chronic. She may have acute on chronic changes. Her renal function will be followed as she undergoes medical evaluation and care. 9. COPD She will need to continue evaluation care per internal medicine and potentially pulmonology. 10. Hemoptysis She has been having episodes of hemoptysis. The etiology has been unclear. She will continue evaluation care per internal medicine. She was pending future outpatient pulmonology evaluation in [place], [place]. Pending upon her course this may need to proceed while she is an inpatient at [facility]. 11. Gastrointestinal bleeding She does have a history of previous GI bleeding. She has been evaluated at other facilities for this in the past. She has received PRBCs in the past. 12. Anemia She does have evidence of anemia. This may be multifactorial such as anemia of chronic disease as well as blood loss secondary to concerns of hemoptysis and her previous GI bleeding history. Her H&H will need to be followed. Depending upon her level she may need PRBC transfusion. Of concern, with respect to her bleeding process, if these events continue, if she continues to have evidence of concerning anemia, then consideration may have to be given in the future as whether or not she would be considered by CT surgery for reevaluation for explant of her mechanical aortic valve prosthesis and implant of a bioprosthetic aortic valve prosthesis. Comment: The patient's case was discussed and reviewed with the patient and the [facility] staff. This note was generated with [employer] dictation software. It may contain incorrect words, spelling, and punctuation that were not noted in checking the note before signing.
--- NOTE | 2018-02-16 17:51 | CON.PCM_ITS ---
Problem List (1) Chronic combined systolic and diastolic CHF (congestive heart failure) Status: Acute (2) H/O mechanical aortic valve replacement Status: Chronic (3) Atherosclerotic heart disease of [place] coronary artery without angina pectoris Status: Chronic Qualifiers: [place] vs. transplanted heart: [place] heart Qualified Code(s): I25.10 - Atherosclerotic heart disease of [place] coronary artery without angina pectoris Comment: CABG, MOLINA graft to LAD, SVG to OM 1, SVG to acute marginal; (4) Aortocoronary bypass status Status: Chronic Comment: CABG, MOLINA graft to LAD, SVG to OM 1, SVG to acute marginal; (5) FELICIA (renal artery stenosis) Status: Chronic Comment: w stent (6) History of CEA (carotid endarterectomy) Status: Chronic (7) HLD (hyperlipidemia) Status: Chronic Qualifiers: (8) HTN (hypertension) Status: Chronic Qualifiers: Hypertension type: essential hypertension Qualified Code(s): I10 - Essential (primary) hypertension (9) Diabetes Status: Chronic (10) Renal insufficiency Status: Chronic (11) COPD (chronic obstructive pulmonary disease) Status: Chronic (12) Hemoptysis Status: Acute (13) Gastrointestinal bleed Status: Chronic (14) Anemia Status: Chronic Reason for Consult Date of Consultation: 02/16/18 History of Present Illness: The patient is a 72 year old white female with a past medical history of combined systolic/diastolic mediated CHF, status post aortic valve replacement with a mechanical aortic valve (23 mm ON X prosthetic mechanical mitral valve apparatus), CAD status post CABG (MOLINA to the LAD, SVG to the OM, SVG to the acute marginal), renal artery stenosis status post renal artery percutaneous intervention, carotid artery disease that is post carotid endarterectomy, hyperlipidemia, hypertension, diabetes mellitus, renal insufficiency, COPD, hemoptysis, history of GI bleeding, and anemia who is referred for concerns of continued acute on chronic combined systolic/diastolic mediated CHF. She has been undergoing evaluation and care as an outpatient for concerns of progressive shortness of breath/dyspnea as well as orthopnea and lower extremity peripheral pitting edema. This is in the setting of a history of hemoptysis for which she is pending future outpatient pulmonary evaluation care in [place], [place]. In the interim she has been evaluated in the outpatient setting and has her diuretics altered. Unfortunately she has had no significant improvement in her symptoms or her physical examination findings. She notes that her weight has actually gone up but not down. Thus status post review of her case this day in the outpatient setting it was recommended that she be further evaluated in the inpatient setting for her cardiopulmonary conditions, etc. She has denied ongoing chest discomfort. She has not noted any obvious palpitations or rapid heart rate. There is been no near syncope or syncope. She has had recent laboratory studies and chest x-rays. She has also had recent hospitalizations in [place], [place] for concerns of her symptoms, her hemoptysis, and a previous evaluation for gastrointestinal bleeding. She has received PRBCs in the past based upon concerns of her gastrointestinal bleeding process.[] Past Medical History Allergies/Adverse Reactions: Allergies ciprofloxacin [From Cipro] Allergy (Verified 02/16/18 13:17) Swelling mesalamine Allergy (Verified 02/16/18 13:17) SOB/abdominal cramps Opioids - Morphine Analogues Adverse Reaction (Severe, Verified 02/16/18 13:17) emesis adhesive Adverse Reaction (Verified 02/16/18 15:28) blisters tegaderm ok clonidine Adverse Reaction (Verified 02/16/18 15:28) Unknown tramadol Adverse Reaction (Verified 02/16/18 13:17) Nausea/Vom/Diarrhea Home Medications: Ambulatory Orders Medication Instructions Recorded Albuterol Inhaler [Ventolin Hfa] 2 puff INHALATION Q6H PRN PRN 09/14/15 Levothyroxine [Synthroid] 75 mcg PO DAILY 09/14/15 Mometasone Furoate [Asmanex 220 2 puff INHALATION BID 09/14/15 mcg Twisthaler] Sertraline HCl [Zoloft] 100 mg PO QHS 09/14/15 Potassium Chloride [K-Dur] 40 meq PO BID 07/15/16 Simvastatin [Zocor] 80 mg PO QHS 07/15/16 Acetaminophen [Tylenol] 325 mg PO Q6H PRN PRN 11/25/16 amoxicillin 500 mg capsule See Rx Instructions PO .Dental 07/22/17 procedure cap glimepiride 1 mg tablet 1 mg PO QAM tab 07/25/17 allopurinol 100 mg tablet 100 mg PO DAILY tab 09/16/17 nitroglycerin 0.4 mg sublingual 0.4 mg SUBLINGUAL Q5-15M PRN #25 11/28/17 tablet tab bumetanide 1 mg tablet 2 mg PO BID tab 01/30/18 Calcitriol [Rocaltrol] 0.25 mcg PO DAILY 02/16/18 Ergocalciferol [Vitamin D] 50,000 unit PO Q30D 02/16/18 Metolazone [Zaroxolyn] 2.5 mg PO DAILY 02/16/18 Torsemide [Demadex] 20 mg PO .TID 02/16/18 Warfarin Sodium [Coumadin] 1 mg PO SUMOTUWETH 02/16/18 Warfarin [Coumadin (PBKC)] 2 mg PO FRSA 02/16/18 Past Medical History (Chronic Problems): Chronic Problems (Last Reviewed 11/28/17 @ 13:23 by Priyanka Castano) H/O mechanical aortic valve replacement (Chronic) CKD (chronic kidney disease), stage III (Chronic) Anemia (Chronic) Renal insufficiency (Chronic) Nonrheumatic mitral (valve) insufficiency (Chronic) Atherosclerotic heart disease of [place] coronary artery without angina pectoris (Chronic) CABG, MOLINA graft to LAD, SVG to OM 1, SVG to acute marginal; Primary pulmonary hypertension (Chronic) Aortic valve disease (Chronic) Sinus bradycardia (Chronic) Cardiac arrhythmia (Chronic) Abnormal electrocardiogram (Chronic) Aortocoronary bypass status (Chronic) CABG, MOLINA graft to LAD, SVG to OM 1, SVG to acute marginal; 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) Other nonspecific abnormal cardiovascular system function study (Chronic) Palpitations (Chronic) Nicotine abuse (Chronic) Diastolic dysfunction (Chronic) Bilateral carotid bruits (Chronic) Orthostatic hypotension (Chronic) Systolic CHF, chronic (Chronic) 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) Hypokalemia (Chronic) S/P CABG x 3 (Chronic) Gastrointestinal bleed (Chronic) Anemia due to blood loss, acute (Chronic) Chronic anticoagulation (Chronic) Chronic renal failure, stage 3 (moderate) (Chronic) CAD (coronary artery disease) (Chronic) History of aortic valve replacement with metallic valve (Chronic) History of CEA (carotid endarterectomy) (Chronic) FELICIA (renal artery stenosis) (Chronic) w stent HTN (hypertension) (Chronic) COPD (chronic obstructive pulmonary disease) (Chronic) Tobacco dependence (Chronic) Mitral valve insufficiency (Chronic) Tricuspid valve insufficiency (Chronic) HLD (hyperlipidemia) (Chronic) Diabetes (Chronic) Diastolic CHF, chronic (Chronic) Carotid artery disease (Chronic) Crohn's colitis (Chronic) Surgical History: coronary bypass surgery, - - CABG (MOLINA to LAD; SVG to OM; SVG to acute marginal) AVR (23 mm ON-X valve) Psychiatric History: No pertinent psych hx 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 - *Family History Maternal Family History: Family History (Last Reviewed 02/16/18 @ 13:20 by Honey Oshea) Mother CVA (cerebral vascular accident) Hypertension Sister Myocardial infarction Breast cancer Sister CVA (cerebral vascular accident) Myocardial infarction Breast cancer Son Myocardial infarction CAD (coronary artery disease) History Items: No pertinent history Lives: Alone Smoking Status: Heavy Smoker (>10/day) Tobacco Use: Cigarettes Alcohol: None Drugs: None Review of Systems - Review of Systems General: Denies: Fever, Night Sweats, Fatigue Cardiovascular: Reports: Shortness of Breath, Shortness of Breath at Rest, Shortness of Breath with Exertion, Orthopnea, PND, Peripheral Edema. Denies: Chest Discomfort, Palpitations, Lightheadedness, Dizziness, Near Syncope, Syncope Respiratory: Reports: Sputum Production, Hemoptysis, Shortness of Breath, Wheezing Gastrointestinal: Denies: Hematemesis, Hematochezia, Melena Genitourinary: Denies: Dysuria, Hematuria Skin: Denies: Rash Objective: Vital Signs Temp Pulse Resp BP Pulse Ox 98.2 F 60 18 131/66 H 96 02/16/18 15:15 02/16/18 15:15 02/16/18 15:15 02/16/18 15:15 02/16/18 15:15 Oxygen Delivery Method Room Air Weight: 162 lb 14.746 oz Body Mass Index (BMI) 30.7 02/16/18 16:32: WBC 7.1, RBC 2.97 L, Hgb 9.8 L, Hct 30.5 L, MCV 102.7 H, MCH 33.0 H, MCHC 32.1, RDW 14.6, RDW Differential 54.6 H, Plt Count 163, MPV 11.8, Immature Gran % (Auto) 0.100, Neut % (Auto) 76.2 H, Lymph % (Auto) 11.2 L, Swisher % (Auto) 8.3, Eos % (Auto) 3.9, Baso % (Auto) 0.3, Absolute Neuts (auto) 5.4, Total Counted Not Reportable 02/16/18 16:32: PT 31.8 H, INR 3.1 02/16/18 16:32: Sodium 144, Potassium 2.9 L, Chloride 105, Carbon Dioxide 30.0, Anion Gap 9, BUN 53 H, Creatinine 1.81 H, Est GFR (MDRD) Af Amer 36 L, Est GFR (MDRD) Non-Af 29 L, BUN/Creatinine Ratio 29.3 H, Glucose 123 H, Calcium 8.6 ECHO: 08/20/2016: Left ventricle: LVEF 50%; postoperative septal wall motion; severe concentric LVH; moderate to severe left atrial enlargement; mild right atrial enlargement; mild to moderate mitral annular calcification; anterior leaflet diffuse mitral valve thickening; mild mitral valve stenosis; mild MR; moderate TR; stable appearing mechanical aortic valve apparatus; mild PI; estimated RV systolic pressure of 62 mmHg compatible pulmonary hypertension; decreased diastolic compliance Stress Test: 02/19/2011: Pharmacologic stress nuclear imaging study: Considered concerning for stress-induced myocardial ischemia in the mid to distal anterior and anteroapical segments with a gated LVEF of 58% Cardiac Cath: 02/18/2006: Elevated left ventricular end-diastolic pressure compatible decreased diastolic compliance; secondary pulmonary hypertension possibly related to underlying cardiovascular findings and/or separate pulmonary disease process; no obvious evidence of intracardiac shunting; left ventricle preserved with an LVEF of 60%; left main normal; LAD with mid vessel 50-75% stenosis; LCx with ostial 75-85% stenosis and mid 75% stenosis; RCA small nondominant vessel with no angiographically significant appearing disease; aortic valve with moderate to moderately severe AI; aortic root calcified; mitral valve with mild MR partially catheter/PVC induced PCI: 03/12/2011: [place] issue: Impression: Moderately severe systemic hypertension; three-vessel CAD with 2 of 3 patent grafts (SVG to OM occluded, SVG to RVM patent, MOLINA to LAD patent), LCx disease with recommendation for medical management, left renal artery stenosis-heavily calcified at the ostium-stented with a 5 mm express bare-metal stent CT Surgery: 05/15/2006: [facility]: MOLINA to LAD; SVG to the OM; SVG to the acute marginal branch; aortic valve replacement with a 23 mm ON X valve-mechanical prosthesis CXR: There evaluation: Increased cardiac silhouette compatible with cardiomegaly; calcification of the thoracic aorta; increased pulmonary vasc ularity; please see official report Assessment/Plan 1. 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 She has not had improvement with adjustment of outpatient medical therapy/diuretic therapy including combined diuretics. Thus she has been brought into the hospital for further evaluation and care. She will be monitored. Her laboratory studies will be followed. She is already had a follow-up chest x-ray. She will be treated medically. This will include IV diuretics. If she does not respond to pulsed IV furosemide therapy then she may have an attempt at continuous infusion IV furosemide therapy. She may need intermittent IV diuril therapy as well. 2. Status post aortic valve replacement-mechanical The present time the patient does have a underlying mechanical aortic valve apparatus. On examination she does appear to have a crisp prosthetic click. Based upon her ongoing issues she will be reassessed with a transthoracic echocardiogram to evaluate her aortic valve apparatus as well as her overall LV size, wall motion, and systolic function. She will need to continue AHA antibiotic prophylaxis as deemed appropriate. She will also need to continue anticoagulation therapy with warfarin/Coumadin with adjustment as deemed appropriate. 3. CAD status post CABG The patient has not had ongoing symptoms of classic angina pectoris nor has she been found to have evidence of acute coronary syndrome/LA. She will be monitored and reassessed as deemed appropriate. Depending upon her clinical course she may or may not need further evaluation of her coronary or graft status noninvasively or invasively. 4. Peripheral arterial occlusive disease The patient does have a history of underlying renal artery stenosis having undergone left renal artery percutaneous intervention as noted above as well as carotid artery disease having undergone carotid endarterectomy. Depending upon her clinical course, vital signs, etc. consideration will be given as to whether or not she needs reassessment of her renal artery status. 5. Hyperlipidemia She will continue lipid-lowering therapy as deemed appropriate. 6. Hypertension Her blood pressures will be followed. Her medications can be adjusted as needed. 7. Diabetes mellitus She will continue under the care of internal medicine for this. 8. Renal insufficiency She does have a history of renal insufficiency. This has been chronic. She may have acute on chronic changes. Her renal function will be followed as she undergoes medical evaluation and care. 9. COPD She will need to continue evaluation care per internal medicine and potentially pulmonology. 10. Hemoptysis She has been having episodes of hemoptysis. The etiology has been unclear. She will continue evaluation care per internal medicine. She was pending future outpatient pulmonology evaluation in [place], [place]. Pending upon her course this may need to proceed while she is an inpatient at [facility]. 11. Gastrointestinal bleeding She does have a history of previous GI bleeding. She has been evaluated at other facilities for this in the past. She has received PRBCs in the past. 12. Anemia She does have evidence of anemia. This may be multifactorial such as anemia of chronic disease as well as blood loss secondary to concerns of hemoptysis and her previous GI bleeding history. Her H&H will need to be followed. Depending upon her level she may need PRBC transfusion. Of concern, with respect to her bleeding process, if these events continue, if she continues to have evidence of concerning anemia, then consideration may have to be given in the future as whether or not she would be considered by CT surgery for reevaluation for explant of her mechanical aortic valve prosthesis and implant of a bioprosthetic aortic valve prosthesis. Comment: The patient's case was discussed and reviewed with the patient and the [facility] staff. This note was generated with [employer] dictation software. It may contain incorrect words, spelling, and punctuation that were not noted in checking the note before signing.
[2018-02-16] MEDS: NYSTATIN 500,000 UNIT/5 ML UDC 500000 UNIT PO ×2 (18:38→20:56)
[2018-02-16 19:00] VITALS: PULSE 60
[2018-02-16 19:40] VITALS: PULSE 68; RESP 18
[2018-02-16] MEDS: Ipratropium/Albuterol Sulfate 3 ML AMPUL.NEB INHALATION (19:40)
[2018-02-16] MEDS: Furosemide 500 MG in Empty Viaflex 50 mL 1 EACH CONT INF (20:13)
[2018-02-16 20:56] VITALS: BP 102/60; PULSE 66; RESP 20; TEMP 37.2; O2SAT 96
[2018-02-16 23:00] VITALS: PULSE 51
[2018-02-17] VITALS (17 sets, daily range): BP systolic 80–111; BP diastolic 39–63; PULSE 47–72; RESP 16–20; TEMP 36.4–37.2; O2SAT 95–99
[2018-02-17] MEDS: 0.9% NaCl Peripheral Flush Adult/Peds IV ×2 (04:12→12:21)
--- NOTE | 2018-02-17 05:55 | ECHOD_ITS ---
Reason For Study: CHF Procedure This was a 2D Doppler, Color Flow transthoracic echocardiogram. The study was technically difficult. Exam performed portable in patient room. Left Ventricle Normal LV size. Moderate concentric left ventricular hypertrophy. Moderate segmental systolic dysfunction (see wall motion). The estimated ejection fraction is 35 %. Post operative septal motion. Infero-Basal: Hypokinetic. Basal inferoseptal: Hypokinetic. Basal anteroseptal: Hypokinetic. Mid-Inferior: Hypokinetic. Mid-inferoseptal : Hypokinetic. Mid-anteroseptal : Hypokinetic. Inferior Odell : Hypokinetic. Lateral Odell : Hypokinetic. Septal Odell : Hypokinetic. Right Ventricle Normal RV size. Normal systolic function. Atria The left atrium is moderately enlarged. The right atrium is mildly enlarged. No doppler evidence for ASD. Mitral Valve There is mild to moderate mitral annular calcification. Extension of the mitral annular calcifcation onto the posterior mitral valve leaflets. Anterior leaflet diffuse mitral valve thickening. Moderate (2+) eccentric mitral valve insufficiency. Tricuspid Valve Normal tricuspid valve. Moderately severe (3+) tricuspid valve insufficiency. Right ventricular systolic pressure estimated to be 78 mmHg. Aortic Valve Stable appearing mechanical aortic valve apparatus. Trivial transvalvular insufficiency of the aortic valve. Pulmonic Valve The pulmonic valve is not well visualized. Mild (1+) pulmonic valve insufficiency. Great Vessels The aortic root is not well visualized. Pericardium/Pleural No pericardial effusion. MMode/2D Measurements & Calculations LVIDd: 5.1 cm IVSd: 1.7 cm LVOT diam: 1.8 cm LVIDs: 3.8 cm LVPWd: 1.4 cm LVOT area: 2.5 cm2 FS: 25.3 % LA dimension: 5.2 cm LAV(MOD-sp4): 132.0 ml LA A4 area: 34.0 cm2 RA A4 area: 19.1 cm2 Time Measurements MV dec time: 0.41 sec Doppler Measurements & Calculations MV E max serge: 160.2 cm/sec MV V2 max: 170.8 cm/sec MV P1/2t max serge: 170.8 cm/sec MV A max serge: 84.6 cm/sec MV max P.7 mmHg MV P1/2t: 112.5 msec MV E/A: 1.9 MV V2 mean: 87.3 cm/sec MV dec slope: 444.4 cm/sec2 MV mean P.5 mmHg MVA(P1/2t): 2.0 cm2 MV V2 VTI: 60.6 cm MVA(VTI): 1.2 cm2 Ao V2 max: 189.7 cm/sec LV V1 max: 116.0 cm/sec MR max serge: 647.7 cm/sec Ao max P.4 mmHg LV V1 max P.4 mmHg MR max P.8 mmHg Ao V2 mean: 125.7 cm/sec LV V1 mean P.6 mmHg MR mean serge: 496.6 cm/sec Ao mean P.0 mmHg LV V1 mean: 75.1 cm/sec MR mean P.8 mmHg Ao V2 VTI: 44.2 cm LV V1 VTI: 29.2 cm MR VTI: 259.8 cm NAHED(I,D): 1.7 cm2 NAHED(V,D): 1.5 cm2 SV(LVOT): 73.0 ml PA V2 max: 133.3 cm/sec TR max serge: 432.2 cm/sec TR max P.7 mmHg Interpretation Summary The study was technically difficult. Moderate segmental systolic dysfunction (see wall motion). The estimated ejection fraction is 35 %. Post operative septal motion. Moderate concentric left ventricular hypertrophy. The left atrium is moderately enlarged. The right atrium is mildly enlarged. There is mild to moderate mitral annular calcification. Extension of the mitral annular calcifcation onto the posterior mitral valve leaflets. Anterior leaflet diffuse mitral valve thickening. Moderate (2+) eccentric mitral valve insufficiency. Moderately severe (3+) tricuspid valve insufficiency. Stable appearing mechanical aortic valve apparatus. Trivial transvalvular insufficiency of the aortic valve. Mild (1+) pulmonic valve insufficiency. Right ventricular systolic pressure estimated to be 78 mmHg. Transmitral diastolic flow velocities suggest diastolic dysfunction (pseudonormal pattern). Ordering Physician: Odilon Anderson Referring Physician: Odilon Anderson Performed By: Des White RCS
[2018-02-17 06:37] LABS: Absolute Lymphocyte Count 0.71 X10^3/ul (0.83-4.51); Absolute Neutrophil Count 4.5 X10^3/uL (2.0-7.7); Basophil# 0.01 X10^3/uL; Basophil% 0.2 % (0-1); Eosinophil# 0.23 X10^3/uL; Eosinophils% 3.8 % (0-5); Hemoglobin 9.2 g/dl (12.0-15.0); Lymphocyte # 0.71 X10^3/ul (4.0); Lymphocyte % 11.8 % (19-41); Mean Corp Hgb Conc 31.7 g/gl (32-36); Mean Corpuscular Hgb 33.5 pg (27.0-32.0); Mean Corpuscular Volume 105.5 fL (81-99); Monocyte# 0.62 X10^3/uL; Monocyte% 10.3 % (0-10); Neutrophil # 4.46 X10^3/uL (2.7-7.7); Neutrophil % 73.7 % (47-70); Platelet Count 145 K/mm3 (150-450); RBC Distribution Width CV 13.9 % (11.6-14.6); RBC Distribution Width SD 52.1 fl (35.1-43.9); Red Blood Count 2.75 M/mm3 (4.2-5.4)
[2018-02-17 06:38] LABS: POSITIVE COUNT NO; POSITIVE DIFFERENTIAL NO; POSITIVE MORPHOLOGY NO
[2018-02-17 06:42] LABS: International Normalized Ratio 2.5; Prothrombin Time (Protime)PT. 27.2 SECONDS (11.7-14.9)
[2018-02-17 06:48] LABS: Anion Gap 7 (5-15); BUN 49 mg/dL (7-18); BUN/Creat Ratio 26.3 RATIO (10-20); Calcium,Total 8.2 mg/dL (8.5-10.1); Chloride 105 mmol/L (98-107); Creatinine, Serum 1.86 mg/dL (0.55-1.02); EST Glomerular Filtration Rate 28 mL/min (>60); Est Glom Filt Rate - Afr Amer 34 mL/min (>60); Estimated Creatinine Clearance 21.24 ml/min; Glucose 136 mg/dL (74-106); Potassium 3.3 mmol/L (3.5-5.1); Sodium Level 144 mmol/L (136-145)
[2018-02-17] MEDS: Ipratropium/Albuterol Sulfate 3 ML AMPUL.NEB INHALATION ×3 (07:15→18:45)
--- NOTE | 2018-02-17 07:25 | PCM.CONS.GEN ---
Reason for Consult Date of Consultation: 02/17/18 Reason for Consultation: Hemoptysis History of Present Illness: The patient is a 72-year-old female, with a history as outlined below, who presented to the hospital on February 16 as a direct admit from the cardiology office. The patient's diuretics were being optimized over the weekend in hopes of improving her lower extremity edema and shortness of breath. However, upon her follow-up office visit in the cardiology clinic she did not note any symptomatic improvement. The patient does have a history of coronary artery disease for which she is status post CABG and also underwent mechanical aortic valve replacement, for which she is chronically anticoagulated. She does have a history of anemia with prior GI bleeding. The patient was reportedly hospitalized last month at [facility], during which time, she was noted to have some form of a lung abnormality, for which it was recommended that she follow-up with a pulmonary provider. The patient reports a one-month history of intermittent hemoptysis, which has ranged from bright red blood to more recently dark colored blood. The patient readily admits that her INR has fluctuated greatly over the last several weeks. While she does have reported history of COPD and continues to smoke cigarettes daily, she is currently only utilizing Asmanex and and as needed albuterol inhaler in her home environment. 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 Past Medical History Past Medical History (Chronic Problems): Chronic Problems (Last Reviewed 11/28/17 @ 13:23 by Priyanka Castano) H/O mechanical aortic valve replacement (Chronic) CKD (chronic kidney disease), stage III (Chronic) Anemia (Chronic) Renal insufficiency (Chronic) Nonrheumatic mitral (valve) insufficiency (Chronic) Atherosclerotic heart disease of [place] coronary artery without angina pectoris (Chronic) CABG, MOLINA graft to LAD, SVG to OM 1, SVG to acute marginal; Primary pulmonary hypertension (Chronic) Aortic valve disease (Chronic) Sinus bradycardia (Chronic) Cardiac arrhythmia (Chronic) Abnormal electrocardiogram (Chronic) Aortocoronary bypass status (Chronic) CABG, MOLINA graft to LAD, SVG to OM 1, SVG to acute marginal; halfway use of drug (Chronic) Other nonspecific abnormal cardiovascular system function study (Chronic) Palpitations (Chronic) Nicotine abuse (Chronic) Diastolic dysfunction (Chronic) Bilateral carotid bruits (Chronic) Orthostatic hypotension (Chronic) Systolic CHF, chronic (Chronic) halfway (current) use of anticoagulants (Chronic) Hypokalemia (Chronic) S/P CABG x 3 (Chronic) Gastrointestinal bleed (Chronic) Anemia due to blood loss, acute (Chronic) Chronic anticoagulation (Chronic) Chronic renal failure, stage 3 (moderate) (Chronic) CAD (coronary artery disease) (Chronic) History of aortic valve replacement with metallic valve (Chronic) History of CEA (carotid endarterectomy) (Chronic) FELICIA (renal artery stenosis) (Chronic) w stent HTN (hypertension) (Chronic) COPD (chronic obstructive pulmonary disease) (Chronic) Tobacco dependence (Chronic) Mitral valve insufficiency (Chronic) Tricuspid valve insufficiency (Chronic) HLD (hyperlipidemia) (Chronic) Diabetes (Chronic) Diastolic CHF, chronic (Chronic) Carotid artery disease (Chronic) Crohn's colitis (Chronic) Medical History: Medical History (Last Reviewed 11/28/17 @ 13:23 by Priyanka Castano) Renal insufficiency (Chronic) N28.9 Nonrheumatic mitral (valve) insufficiency (Chronic) I34.0 Atherosclerotic heart disease of [place] coronary artery without angina pectoris (Chronic) I25.10 CABG, MOLINA graft to LAD, SVG to OM 1, SVG to acute marginal; Primary pulmonary hypertension (Chronic) I27.0 Aortic valve disease (Chronic) I35.9 Sinus bradycardia (Chronic) R00.1 Cardiac arrhythmia (Chronic) I49.9 Palpitations (Chronic) R00.2 Diastolic dysfunction (Chronic) I51.9 Bilateral carotid bruits (Chronic) R09.89 Orthostatic hypotension (Chronic) I95.1 Systolic CHF, chronic (Chronic) 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) Z79.01 Hypokalemia (Chronic) E87.6 CAD (coronary artery disease) (Chronic) I25.10 FELICIA (renal artery stenosis) (Chronic) I70.1 w stent HTN (hypertension) (Chronic) I10 HLD (hyperlipidemia) (Chronic) E78.5 Diastolic CHF, chronic (Chronic) I50.32 Dizziness and giddiness R42 Dyspnea R06.00 Edema R60.9 Heartburn R12 Palpitations R00.2 Allergies ciprofloxacin [From Cipro] Allergy (Verified 02/16/18 13:17) Swelling mesalamine Allergy (Verified 02/16/18 13:17) SOB/abdominal cramps Opioids - Morphine Analogues Adverse Reaction (Severe, Verified 02/16/18 13:17) emesis adhesive Adverse Reaction (Verified 02/16/18 15:28) blisters tegaderm ok clonidine Adverse Reaction (Verified 02/16/18 15:28) Unknown tramadol Adverse Reaction (Verified 02/16/18 13:17) Nausea/Vom/Diarrhea Home Medications: Ambulatory Orders Medication Instructions Recorded Albuterol Inhaler [Ventolin Hfa] 2 puff INHALATION Q6H PRN PRN 09/14/15 Levothyroxine [Synthroid] 75 mcg PO DAILY 09/14/15 Mometasone Furoate [Asmanex 220 2 puff INHALATION BID 09/14/15 mcg [place]] Sertraline HCl [Zoloft] 100 mg PO QHS 09/14/15 Potassium Chloride [K-Dur] 40 meq PO BID 07/15/16 Simvastatin [Zocor] 80 mg PO QHS 07/15/16 Acetaminophen [Tylenol] 325 mg PO Q6H PRN PRN 11/25/16 amoxicillin 500 mg capsule See Rx Instructions PO .Dental 07/22/17 procedure cap glimepiride 1 mg tablet 1 mg PO QAM tab 07/25/17 allopurinol 100 mg tablet 100 mg PO DAILY tab 09/16/17 nitroglycerin 0.4 mg sublingual 0.4 mg SUBLINGUAL Q5-15M PRN #25 11/28/17 tablet tab bumetanide 1 mg tablet 2 mg PO BID tab 01/30/18 Calcitriol [Rocaltrol] 0.25 mcg PO DAILY 02/16/18 Ergocalciferol [Vitamin D] 50,000 unit PO Q30D 02/16/18 Metolazone [Zaroxolyn] 2.5 mg PO DAILY 02/16/18 Torsemide [Demadex] 20 mg PO .TID 02/16/18 Warfarin Sodium [Coumadin] 1 mg PO SUMOTUWETH 02/16/18 Warfarin [Coumadin (PBKC)] 2 mg PO FRSA 02/16/18 Surgical History: Surgical History (Last Updated 02/16/18 @ 13:19 by Honey Oshea) H/O aortic valve replacement (Resolved) Z95.2 05/15/06 AVR with #23mm. on-x valve; Aortocoronary bypass status (Chronic) Z95.1 CABG, MOLINA graft to LAD, SVG to OM 1, SVG to acute marginal; History of renal stent Z98.890 H/O carotid endarterectomy Z98.890 History of cholecystectomy Z90.49 History of hysterectomy Z90.710 History of mastectomy Z90.10 left Surgical History: coronary bypass surgery, - - CABG (MOLINA to LAD; SVG to OM; SVG to acute marginal) AVR (23 mm ON-X valve) Psychiatric History: No pertinent psych hx CONSULTING SME History: No pertinent CONSULTING SME history Lives: Alone Smoking Status: Heavy Smoker (>10/day) Tobacco Use: Cigarettes Alcohol: None Drugs: None - *Family History Maternal Family History: Family History (Last Reviewed 02/16/18 @ 13:20 by Honey Oshea) Mother CVA (cerebral vascular accident) Hypertension Sister Myocardial infarction Breast cancer Sister CVA (cerebral vascular accident) Myocardial infarction Breast cancer Son Myocardial infarction CAD (coronary artery disease) History Items: No pertinent history Review of Systems Constitutional: Denies: Chills, Fever, Night Sweats Eyes: Denies: Blurred vision, Double vision HEENT: Denies: Head Aches, Sinus Congestion, Sinus Drainage Cardiovascular: Denies: Chest Pain, Palpitations Respiratory: Reports: Cough, Hemoptysis, Shortness of Breath, Sputum production Gastrointestinal: Denies: Abdominal Pain, Nausea, Vomiting Genitourinary: Denies: Dysuria Musculoskeletal: Denies: Joint Pain, Joint Tenderness Skin: Denies: Rash, Wounds Neurological: Denies: Numbness, Tingling, Focal weakness Psychiatric: Denies: Anxiety, Depression, Homicidal Ideations, Suicidal Ideations Hematologic/ Lymphatic: Reports: Anemia, Hx of blood transfusion Patient Problems: Active and Suspected Problems (Last Reviewed 11/28/17 @ 13:23 by Priyanka Castano) CHF (congestive heart failure) (Acute) Hemoptysis (Acute) Objective: The patient's most recent lab work, culture data and imaging studies have all been personally reviewed. Patient's last surface echocardiogram from August 2016 revealed severe concentric LVH with an ejection fraction of 50%. Right ventricular systolic pressure was estimated to be 62 mmHg. - Physical Exam General: Alert, Cooperative, No apparent distress HEENT: Atraumatic, PERRLA, Normocephalic Oral: No Gingival or Mucosal Lesions/ Ulcerations Neck: Supple, No Nodes, Trachea Midline Lungs: No wheeze, Diminished, Rales Cardiovascular: Regular rate, Regular Rhythm, Normal S1, Normal S2, Murmur Abdomen: Bowel Sounds Present, Soft, Non Tender Extremities: No clubbing, No cyanosis, Edema Skin: No breakdown Musculoskeletal: No Muscle Wasting Lymphatic: No Cervical, Supraclavicular, or Inguinal Adenopathy Neurological: Cranial nerves II-XII grossly intact, Neuro grossly intact Psych/Mental Status: Alert and oriented to time, place, person, mood and affect Vital Signs Temp Pulse Resp BP Pulse Ox 98.1 F 47 L 16 103/50 L 99 02/17/18 05:00 02/17/18 05:00 02/17/18 05:00 02/17/18 05:00 02/17/18 05:00 Oxygen Flow Rate (L/min) 2 Oxygen Delivery Method Nasal Cannula Weight: 162 lb 4.163 oz Body Mass Index (BMI) 30.7 Intake and Output for Last 24 Hours 02/15/18 02/16/18 02/17/18 23:59 23:59 23:59 Intake Total 323.4 / 323.4 567.8 / 567.8 Output Total 1400 / 1400 1000 / 1000 Balance -1076.6 / -1076.6 -432.2 / -432.2 Laboratory Tests Past 24 Hrs 02/16/18 02/16/18 02/16/18 16:32 16:32 16:32 WBC 7.1 RBC 2.97 L Hgb 9.8 L Hct 30.5 L MCV 102.7 H MCH 33.0 H MCHC 32.1 RDW 14.6 RDW Differential 54.6 H Plt Count 163 MPV 11.8 Immature Gran % (Auto) 0.100 Neut % (Auto) 76.2 H Lymph % (Auto) 11.2 L [place] % (Auto) 8.3 Eos % (Auto) 3.9 Baso % (Auto) 0.3 Absolute Neuts (auto) 5.4 Absolute Lymphs (auto) 0.80 L Total Counted Not Reportable PT 31.8 H INR 3.1 Sodium 144 Potassium 2.9 L Chloride 105 Carbon Dioxide 30.0 Anion Gap 9 BUN 53 H Creatinine 1.81 H Estim Creat Clear Calc 21.82 Est GFR (MDRD) Af Amer 36 L Est GFR (MDRD) Non-Af 29 L BUN/Creatinine Ratio 29.3 H Glucose 123 H Calcium 8.6 02/17/18 02/17/18 02/17/18 06:18 06:18 06:18 WBC 6.0 RBC 2.75 L Hgb 9.2 L Hct 29.0 L MCV 105.5 H MCH 33.5 H MCHC 31.7 L RDW 13.9 RDW Differential 52.1 H Plt Count 145 L MPV 12.0 Immature Gran % (Auto) 0.200 Neut % (Auto) 73.7 H Lymph % (Auto) 11.8 L [place] % (Auto) 10.3 H Eos % (Auto) 3.8 Baso % (Auto) 0.2 Absolute Neuts (auto) 4.5 Absolute Lymphs (auto) 0.71 L Total Counted Not Reportable PT 27.2 H INR 2.5 Sodium 144 Potassium 3.3 L Chloride 105 Carbon Dioxide 32.0 Anion Gap 7 BUN 49 H Creatinine 1.86 H Estim Creat Clear Calc 21.24 Est GFR (MDRD) Af Amer 34 L Est GFR (MDRD) Non-Af 28 L BUN/Creatinine Ratio 26.3 H Glucose 136 H Calcium 8.2 L Clinical Impression(s) from Imaging Studies Chest X-Ray 02/16/18 16:12 IMPRESSION: There is moderate enlargement of the cardiac silhouette with vascular congestion. There is no obvious effusion. There is stable COPD with mild diffuse fibrosis. Electronically Signed: Karli Mancilla MD at 17:12 EDT Tel Direct: [phone], Service support , Assessment/Plan All Active Problems (Last Reviewed 11/28/17 @ 13:23 by Priyanka Castano) CHF (congestive heart failure) (Acute) Hemoptysis (Acute) Chronic combined systolic and diastolic CHF (congestive heart failure) (Acute) H/O aortic valve replacement (Resolved) WILLIAN (acute kidney injury) (Resolved) Abnormal cardiac enzyme level (Resolved) Chest pain (Resolved) Dehydration (Resolved) Hypokalemia (Resolved) Renal abscess (Resolved) Sinus bradycardia (Resolved) RECOMMENDATIONS: 1. Obtain outside hospital medical records including CT chest from [facility]. 2. Obtain repeat noncontrasted chest CT today. 3. Continue scheduled bronchodilators as ordered. 4. Diuretic regimen per cardiology. 5. Smoking cessation is strongly advisable. 6. Is highly recommended that the patient follow-up in the pulmonary medicine clinic so that baseline pulmonary function testing can be completed. In addition, she is currently on a suboptimal inhaler regimen. IMPRESSIONS: 1. Intermittent hemoptysis Unclear if the patient's intermittent hemoptysis is related to her fluctuating INR levels, coupled with her underlying presumptive obstructive lung disease. She does report having an abnormal chest CT completed a month ago at [facility], the records of which are not available to me today. It would be helpful having those records to review. In the interim, I have recommended that we repeat a noncontrasted chest CT. At the current time, the patient only coughed up a small amount of dark colored blood while I was at the bedside, indicating that there is no current emergent need for bronchoscopy. Depending the results of her CT chest, additional workup may need to be undertaken. 2. Presumptive COPD of unknown severity It is highly advisable that the patient follow-up in the pulmonary medicine clinic so that baseline PFTs can be completed. She reports that she is currently prescribed Asmanex and as needed albuterol in her home environment. If the patient does have straightforward obstructive lung disease, this inhaler regimen is significantly suboptimal for her lung disease. 3. Ongoing tobacco dependency Smoking cessation is strongly advised. Nicotine replacement therapy can be offered while she is admitted to the hospital. 4. Acute on chronic CHF exacerbation Continue current medical management and diuretic therapy per cardiology recommendations. 5. Diabetes/chronic kidney disease/hyperlipidemia/mechanical aortic valve in situ Complicates care, management, recovery and prognosis. Continue Coumadin for now as ordered. This note was generated with AfterYesation software. It may contain incorrect words, spelling, and punctuation that were not noted in checking the note before signing. Code Visit Inpatient E&M: 61840 Init Hosp L3
--- NOTE | 2018-02-17 07:30 | CON.PCM_ITS ---
Reason for Consult Date of Consultation: 02/17/18 Reason for Consultation: Hemoptysis History of Present Illness: The patient is a 72-year-old female, with a history as outlined below, who presented to the hospital on February 16 as a direct admit from the cardiology office. The patient's diuretics were being optimized over the weekend in hopes of improving her lower extremity edema and shortness of breath. However, upon her follow-up office visit in the cardiology clinic she did not note any symptomatic improvement. The patient does have a history of coronary artery disease for which she is status post CABG and also underwent mechanical aortic valve replacement, for which she is chronically anticoagulated. She does have a history of anemia with prior GI bleeding. The patient was reportedly hospitalized last month at [facility], during which time, she was noted to have some form of a lung abnormality, for which it was recommended that she follow-up with a pulmonary provider. The patient reports a one-month history of intermittent hemoptysis, which has ranged from bright red blood to more recently dark colored blood. The patient readily admits that her INR has fluctuated greatly over the last several weeks. While she does have reported history of COPD and continues to smoke cigarettes daily, she is currently only utilizing Asmanex and and as needed albuterol inhaler in her home environment. She has never been formally evaluated by a tie up worker, nor has she undergone pulmonary function testing previously. Past Medical History Past Medical History (Chronic Problems): Chronic Problems (Last Reviewed 11/28/17 @ 13:23 by Priyanka Castano) H/O mechanical aortic valve replacement (Chronic) CKD (chronic kidney disease), stage III (Chronic) Anemia (Chronic) Renal insufficiency (Chronic) Nonrheumatic mitral (valve) insufficiency (Chronic) Atherosclerotic heart disease of [place] coronary artery without angina pectoris (Chronic) CABG, MOLINA graft to LAD, SVG to OM 1, SVG to acute marginal; Primary pulmonary hypertension (Chronic) Aortic valve disease (Chronic) Sinus bradycardia (Chronic) Cardiac arrhythmia (Chronic) Abnormal electrocardiogram (Chronic) Aortocoronary bypass status (Chronic) CABG, MOLINA graft to LAD, SVG to OM 1, SVG to acute marginal; USP use of drug (Chronic) Other nonspecific abnormal cardiovascular system function study (Chronic) Palpitations (Chronic) Nicotine abuse (Chronic) Diastolic dysfunction (Chronic) Bilateral carotid bruits (Chronic) Orthostatic hypotension (Chronic) Systolic CHF, chronic (Chronic) USP (current) use of anticoagulants (Chronic) Hypokalemia (Chronic) S/P CABG x 3 (Chronic) Gastrointestinal bleed (Chronic) Anemia due to blood loss, acute (Chronic) Chronic anticoagulation (Chronic) Chronic renal failure, stage 3 (moderate) (Chronic) CAD (coronary artery disease) (Chronic) History of aortic valve replacement with metallic valve (Chronic) History of CEA (carotid endarterectomy) (Chronic) FELICIA (renal artery stenosis) (Chronic) w stent HTN (hypertension) (Chronic) COPD (chronic obstructive pulmonary disease) (Chronic) Tobacco dependence (Chronic) Mitral valve insufficiency (Chronic) Tricuspid valve insufficiency (Chronic) HLD (hyperlipidemia) (Chronic) Diabetes (Chronic) Diastolic CHF, chronic (Chronic) Carotid artery disease (Chronic) Crohn's colitis (Chronic) Medical History: Medical History (Last Reviewed 11/28/17 @ 13:23 by Priyanka Castano) Renal insufficiency (Chronic) N28.9 Nonrheumatic mitral (valve) insufficiency (Chronic) I34.0 Atherosclerotic heart disease of [place] coronary artery without angina pectoris (Chronic) I25.10 CABG, MOLINA graft to LAD, SVG to OM 1, SVG to acute marginal; Primary pulmonary hypertension (Chronic) I27.0 Aortic valve disease (Chronic) I35.9 Sinus bradycardia (Chronic) R00.1 Cardiac arrhythmia (Chronic) I49.9 Palpitations (Chronic) R00.2 Diastolic dysfunction (Chronic) I51.9 Bilateral carotid bruits (Chronic) R09.89 Orthostatic hypotension (Chronic) I95.1 Systolic CHF, chronic (Chronic) 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 (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) Z79.01 Hypokalemia (Chronic) E87.6 CAD (coronary artery disease) (Chronic) I25.10 FELICIA (renal artery stenosis) (Chronic) I70.1 w stent HTN (hypertension) (Chronic) I10 HLD (hyperlipidemia) (Chronic) E78.5 Diastolic CHF, chronic (Chronic) I50.32 Dizziness and giddiness R42 Dyspnea R06.00 Edema R60.9 Heartburn R12 Palpitations R00.2 Allergies ciprofloxacin [From Cipro] Allergy (Verified 02/16/18 13:17) Swelling mesalamine Allergy (Verified 02/16/18 13:17) SOB/abdominal cramps Opioids - Morphine Analogues Adverse Reaction (Severe, Verified 02/16/18 13:17) emesis adhesive Adverse Reaction (Verified 02/16/18 15:28) blisters tegaderm ok clonidine Adverse Reaction (Verified 02/16/18 15:28) Unknown tramadol Adverse Reaction (Verified 02/16/18 13:17) Nausea/Vom/Diarrhea Home Medications: Ambulatory Orders Medication Instructions Recorded Albuterol Inhaler [Ventolin Hfa] 2 puff INHALATION Q6H PRN PRN 09/14/15 Levothyroxine [Synthroid] 75 mcg PO DAILY 09/14/15 Mometasone Furoate [Asmanex 220 2 puff INHALATION BID 09/14/15 mcg [place]er] Sertraline HCl [Zoloft] 100 mg PO QHS 09/14/15 Potassium Chloride [K-Dur] 40 meq PO BID 07/15/16 Simvastatin [Zocor] 80 mg PO QHS 07/15/16 Acetaminophen [Tylenol] 325 mg PO Q6H PRN PRN 11/25/16 amoxicillin 500 mg capsule See Rx Instructions PO .Dental 07/22/17 procedure cap glimepiride 1 mg tablet 1 mg PO QAM tab 07/25/17 allopurinol 100 mg tablet 100 mg PO DAILY tab 09/16/17 nitroglycerin 0.4 mg sublingual 0.4 mg SUBLINGUAL Q5-15M PRN #25 11/28/17 tablet tab bumetanide 1 mg tablet 2 mg PO BID tab 01/30/18 Calcitriol [Rocaltrol] 0.25 mcg PO DAILY 02/16/18 Ergocalciferol [Vitamin D] 50,000 unit PO Q30D 02/16/18 Metolazone [Zaroxolyn] 2.5 mg PO DAILY 02/16/18 Torsemide [Demadex] 20 mg PO .TID 02/16/18 Warfarin Sodium [Coumadin] 1 mg PO SUMOTUWETH 02/16/18 Warfarin [Coumadin ([facility])] 2 mg PO FRSA 02/16/18 Surgical History: Surgical History (Last Updated 02/16/18 @ 13:19 by Honey Oshea) H/O aortic valve replacement (Resolved) Z95.2 05/15/06 AVR with #23mm. on-x valve; Aortocoronary bypass status (Chronic) Z95.1 CABG, MOLINA graft to LAD, SVG to OM 1, SVG to acute marginal; History of renal stent Z98.890 H/O carotid endarterectomy Z98.890 History of cholecystectomy Z90.49 History of hysterectomy Z90.710 History of mastectomy Z90.10 left Surgical History: coronary bypass surgery, - - CABG (MOLINA to LAD; SVG to OM; SVG to acute marginal) AVR (23 mm ON-X valve) Psychiatric History: No pertinent psych hx GEOLOGY TECHNICIAN History: No pertinent GEOLOGY TECHNICIAN history Lives: Alone Smoking Status: Heavy Smoker (>10/day) Tobacco Use: Cigarettes Alcohol: None Drugs: None - *Family History Maternal Family History: Family History (Last Reviewed 02/16/18 @ 13:20 by Honey Oshea) Mother CVA (cerebral vascular accident) Hypertension Sister Myocardial infarction Breast cancer Sister CVA (cerebral vascular accident) Myocardial infarction Breast cancer Son Myocardial infarction CAD (coronary artery disease) History Items: No pertinent history Review of Systems Constitutional: Denies: Chills, Fever, Night Sweats Eyes: Denies: Blurred vision, Double vision HEENT: Denies: Head Aches, Sinus Congestion, Sinus Drainage Cardiovascular: Denies: Chest Pain, Palpitations Respiratory: Reports: Cough, Hemoptysis, Shortness of Breath, Sputum production Gastrointestinal: Denies: Abdominal Pain, Nausea, Vomiting Genitourinary: Denies: Dysuria Musculoskeletal: Denies: Joint Pain, Joint Tenderness Skin: Denies: Rash, Wounds Neurological: Denies: Numbness, Tingling, Focal weakness Psychiatric: Denies: Anxiety, Depression, Homicidal Ideations, Suicidal Ideations Hematologic/ Lymphatic: Reports: Anemia, Hx of blood transfusion Patient Problems: Active and Suspected Problems (Last Reviewed 11/28/17 @ 13:23 by Priyanka Cevallos ) CHF (congestive heart failure) (Acute) Hemoptysis (Acute) Objective: The patient's most recent lab work, culture data and imaging studies have all been personally reviewed. Patient's last surface echocardiogram from August 2016 revealed severe concentric LVH with an ejection fraction of 50%. Right ventricular systolic pressure was estimated to be 62 mmHg. - Physical Exam General: Alert, Cooperative, No apparent distress HEENT: Atraumatic, PERRLA, Normocephalic Oral: No Gingival or Mucosal Lesions/ Ulcerations Neck: Supple, No Nodes, Trachea Midline Lungs: No wheeze, Diminished, Rales Cardiovascular: Regular rate, Regular Rhythm, Normal S1, Normal S2, Murmur Abdomen: Bowel Sounds Present, Soft, Non Tender Extremities: No clubbing, No cyanosis, Edema Skin: No breakdown Musculoskeletal: No Muscle Wasting Lymphatic: No Cervical, Supraclavicular, or Inguinal Adenopathy Neurological: Cranial nerves II-XII grossly intact, Neuro grossly intact Psych/Mental Status: Alert and oriented to time, place, person, mood and affect Vital Signs Temp Pulse Resp BP Pulse Ox 98.1 F 47 L 16 103/50 L 99 02/17/18 05:00 02/17/18 05:00 02/17/18 05:00 02/17/18 05:00 02/17/18 05:00 Oxygen Flow Rate (L/min) 2 Oxygen Delivery Method Nasal Cannula Weight: 162 lb 4.163 oz Body Mass Index (BMI) 30.7 Intake and Output for Last 24 Hours 02/15/18 02/16/18 02/17/18 23:59 23:59 23:59 Intake Total 323.4 / 323.4 567.8 / 567.8 Output Total 1400 / 1400 1000 / 1000 Balance -1076.6 / -1076.6 -432.2 / -432.2 Laboratory Tests Past 24 Hrs 02/16/18 02/16/18 02/16/18 16:32 16:32 16:32 WBC 7.1 RBC 2.97 L Hgb 9.8 L Hct 30.5 L MCV 102.7 H MCH 33.0 H MCHC 32.1 RDW 14.6 RDW Differential 54.6 H Plt Count 163 MPV 11.8 Immature Gran % (Auto) 0.100 Neut % (Auto) 76.2 H Lymph % (Auto) 11.2 L [place] % (Auto) 8.3 Eos % (Auto) 3.9 Baso % (Auto) 0.3 Absolute Neuts (auto) 5.4 Absolute Lymphs (auto) 0.80 L Total Counted Not Reportable PT 31.8 H INR 3.1 Sodium 144 Potassium 2.9 L Chloride 105 Carbon Dioxide 30.0 Anion Gap 9 BUN 53 H Creatinine 1.81 H Estim Creat Clear Calc 21.82 Est GFR (MDRD) Af Amer 36 L Est GFR (MDRD) Non-Af 29 L BUN/Creatinine Ratio 29.3 H Glucose 123 H Calcium 8.6 02/17/18 02/17/18 02/17/18 06:18 06:18 06:18 WBC 6.0 RBC 2.75 L Hgb 9.2 L Hct 29.0 L MCV 105.5 H MCH 33.5 H MCHC 31.7 L RDW 13.9 RDW Differential 52.1 H Plt Count 145 L MPV 12.0 Immature Gran % (Auto) 0.200 Neut % (Auto) 73.7 H Lymph % (Auto) 11.8 L [place] % (Auto) 10.3 H Eos % (Auto) 3.8 Baso % (Auto) 0.2 Absolute Neuts (auto) 4.5 Absolute Lymphs (auto) 0.71 L Total Counted Not Reportable PT 27.2 H INR 2.5 Sodium 144 Potassium 3.3 L Chloride 105 Carbon Dioxide 32.0 Anion Gap 7 BUN 49 H Creatinine 1.86 H Estim Creat Clear Calc 21.24 Est GFR (MDRD) Af Amer 34 L Est GFR (MDRD) Non-Af 28 L BUN/Creatinine Ratio 26.3 H Glucose 136 H Calcium 8.2 L Clinical Impression(s) from Imaging Studies Chest X-Ray 02/16/18 16:12 IMPRESSION: There is moderate enlargement of the cardiac silhouette with vascular congestion. There is no obvious effusion. There is stable COPD with mild diffuse fibrosis. Electronically Signed: Karli Mancilla MD at 17:12 EDT Tel Direct: [phone], Service support , Assessment/Plan All Active Problems (Last Reviewed 11/28/17 @ 13:23 by Priyanka Castano) CHF (congestive heart failure) (Acute) Hemoptysis (Acute) Chronic combined systolic and diastolic CHF (congestive heart failure) (Acute) H/O aortic valve replacement (Resolved) WILLIAN (acute kidney injury) (Resolved) Abnormal cardiac enzyme level (Resolved) Chest pain (Resolved) Dehydration (Resolved) Hypokalemia (Resolved) Renal abscess (Resolved) Sinus bradycardia (Resolved) RECOMMENDATIONS: 1. Obtain outside hospital medical records including CT chest from [facility]. 2. Obtain repeat noncontrasted chest CT today. 3. Continue scheduled bronchodilators as ordered. 4. Diuretic regimen per cardiology. 5. Smoking cessation is strongly advisable. 6. Is highly recommended that the patient follow-up in the pulmonary medicine clinic so that baseline pulmonary function testing can be completed. In addition, she is currently on a suboptimal inhaler regimen. IMPRESSIONS: 1. Intermittent hemoptysis Unclear if the patient's intermittent hemoptysis is related to her fluctuating INR levels, coupled with her underlying presumptive obstructive lung disease. She does report having an abnormal chest CT completed a month ago at [facility], the records of which are not available to me today. It would be helpful having those records to review. In the interim, I have recommended that we repeat a noncontrasted chest CT. At the current time, the patient only coughed up a small amount of dark colored blood while I was at the bedside, indicating that there is no current emergent need for bronchoscopy. Depending the results of her CT chest, additional workup may need to be undertaken. 2. Presumptive COPD of unknown severity It is highly advisable that the patient follow-up in the pulmonary medicine clinic so that baseline PFTs can be completed. She reports that she is currently prescribed Asmanex and as needed albuterol in her home environment. If the patient does have straightforward obstructive lung disease, this inhaler regimen is significantly suboptimal for her lung disease. 3. Ongoing tobacco dependency Smoking cessation is strongly advised. Nicotine replacement therapy can be offered while she is admitted to the hospital. 4. Acute on chronic CHF exacerbation Continue current medical management and diuretic therapy per cardiology recommendations. 5. Diabetes/chronic kidney disease/hyperlipidemia/mechanical aortic valve in situ Complicates care, management, recovery and prognosis. Continue Coumadin for now as ordered. This note was generated with [employer] dictation software. It may contain incorrect words, spelling, and punctuation that were not noted in checking the note before signing. Code Visit Inpatient E&M: 11852 Init Hosp L3
--- NOTE | 2018-02-17 08:38 | CT_ITS ---
STUDY: CT CHEST WITHOUT CONTRAST REASON FOR EXAM: Female, 72 years old. Cough. History of left mastectomy, cholecystectomy, 3 vessel CABG and right carotid endarterectomy. RADIATION DOSAGE (If Supplied By Facility): CTDIvol = ( 17.08 ) mGy, DLP = ( 597.44 ) mGycm TECHNIQUE: Transaxial imaging was performed without the administration of intravenous contrast material. Coronal and sagittal reconstructions were performed. Individualized dose optimization techniques were used for this CT. COMPARISON: None. FINDINGS: Interlobular septal thickening with groundglass opacities in both lungs. They are suggestive of hydrostatic pulmonary edema. Focal atelectasis in the right posterior lung base. Mild to moderate right posterior pleural fluid. No left pleural fluid. Cardiomegaly. Aortic valve prosthesis. No pericardial fluid. Normal mediastinum. Normal hilar regions. Normal unenhanced pulmonary arteries. Dense atherosclerotic calcifications along the thoracic aorta and the great vessels. No acute osseous abnormality. Small hiatal hernia. CT/Chest without Contrast IMPRESSION: 1. Diffuse interlobular septal thickening with groundglass opacities in both lungs. They are suggestive of hydrostatic pulmonary edema. 2. Focal atelectases in the right posterior lung base and mild to moderate right posterior pleural fluid. 3. Cardiomegaly with aortic valve prosthesis. 4. Dense vascular calcifications of the thoracic aorta and all its branches. Electronically Signed: Lukasz Shelley MD at 10:40 EDT , Service support ,
[2018-02-17] MEDS: Levothyroxine 75 MCG Tablet PO (09:27)
[2018-02-17] MEDS: NYSTATIN 500,000 UNIT/5 ML UDC 500000 UNIT PO ×4 (09:28→21:59)
[2018-02-17 10:29] LABS: Magnesium 1.9 mg/dL (1.6-2.6)
--- NOTE | 2018-02-17 10:44 | CASEMGMT ---
SHRAVAN CHASE Assessment: Face to Face with patient for initial transition planning/care coordination assessment. SHRAVAN CHASE introduced self and role at [facility], pt voices understanding and consents to assessment at this time. Pt is sitting up on side of bed in no distress at this time. Pt is A/O x4 at this time and answers all questions appropriately at this time. Care providers, pharmacy, and demographics verified at this time. PCP: Chaitanya Specialists: Carol-cardio; Ode-nephro; [facility] Preferred [facility]acy: [facility] Insurance: AeR Prescription Benefit: AeR Living Will/HPOA: Pt states has both LW/HPOA and daughter, Johanny Barakat, is HPOA. AD are not currently on file at [facility]. LNOK: Johanny Barakat, daughter; Sebastien Peterson, son Living Arrangements: Pt states lives alone in 1 story apartment and states no concerns at home at this time. Transportation: Pt states drives self and states no transportation concerns at this time. DME/HHC: Pt states no current DME or need for any at this time. Pt states no HHC or SNF in the past. Pt states no concerns with going home at time of discharge. Pt states smokes less than a pack/day and states does not drink ETOH. Pt states no further concerns/needs at this time. Plan: [place] SHRAVAN CHASE
[2018-02-17] MEDS: Allopurinol 100 MG Tablet PO (11:16)
[2018-02-17] MEDS: Calcitriol 0.25 MCG Capsule PO (11:17)
--- NOTE | 2018-02-17 11:28 | PCM.PROGNOTE ---
<South Bhakta - Last Filed: 02/17/18 11:28> Patient Problems: Active and Suspected Problems (Last Reviewed 11/28/17 @ 13:23 by Priyanka Castano) CHF (congestive heart failure) (Acute) Hemoptysis (Acute) Subjective: Still SOB and edematous. BP low this AM so lasix held. No dizziness/LH. No CP. Dark red hemoptysis continues. No Fever/Chills. - Physical Exam General: Alert, Oriented x3, Cooperative HEENT: Atraumatic, PERRLA, EOMI, Normocephalic Neck: Supple, No JVD, Negative Carotid Bruits Lungs: Rales Cardiovascular: Regular rate, No murmurs Abdomen: Bowel Sounds Present, Soft, Non Tender Extremities: Capillary Refill Less than 3 Seconds, Edema Skin: No rashes, No breakdown Musculoskeletal: No Tenderness to Palpation of Joints or Extremities Neurological: Cranial nerves II-XII grossly intact Psych/Mental Status: Normal Affect, Appropriate Vital Signs Temp Pulse Resp BP Pulse Ox 99.0 F 52 L 18 109/55 L 97 02/17/18 11:14 02/17/18 11:14 02/17/18 11:14 02/17/18 11:14 02/17/18 11:14 Oxygen Flow Rate (L/min) 2 Oxygen Delivery Method Nasal Cannula Weight: 162 lb 4.163 oz Body Mass Index (BMI) 30.7 Intake and Output for Last 24 Hours 02/15/18 02/16/18 02/17/18 23:59 23:59 23:59 Intake Total 323.4 / 323.4 567.8 / 567.8 Output Total 1400 / 1400 1000 / 1000 Balance -1076.6 / -1076.6 -432.2 / -432.2 Laboratory Tests Past 24 Hrs 02/16/18 02/16/18 02/16/18 16:32 16:32 16:32 WBC 7.1 RBC 2.97 L Hgb 9.8 L Hct 30.5 L MCV 102.7 H MCH 33.0 H MCHC 32.1 RDW 14.6 RDW Differential 54.6 H Plt Count 163 MPV 11.8 Immature Gran % (Auto) 0.100 Neut % (Auto) 76.2 H Lymph % (Auto) 11.2 L [place]ancock % (Auto) 8.3 Eos % (Auto) 3.9 Baso % (Auto) 0.3 Absolute Neuts (auto) 5.4 Absolute Lymphs (auto) 0.80 L Total Counted Not Reportable PT 31.8 H INR 3.1 Sodium 144 Potassium 2.9 L Chloride 105 Carbon Dioxide 30.0 Anion Gap 9 BUN 53 H Creatinine 1.81 H Estim Creat Clear Calc 21.82 Est GFR (MDRD) Af Amer 36 L Est GFR (MDRD) Non-Af 29 L BUN/Creatinine Ratio 29.3 H Glucose 123 H Calcium 8.6 Magnesium 02/17/18 02/17/18 02/17/18 06:18 06:18 06:18 WBC 6.0 RBC 2.75 L Hgb 9.2 L Hct 29.0 L MCV 105.5 H MCH 33.5 H MCHC 31.7 L RDW 13.9 RDW Differential 52.1 H Plt Count 145 L MPV 12.0 Immature Gran % (Auto) 0.200 Neut % (Auto) 73.7 H Lymph % (Auto) 11.8 L Hancock % (Auto) 10.3 H Eos % (Auto) 3.8 Baso % (Auto) 0.2 Absolute Neuts (auto) 4.5 Absolute Lymphs (auto) 0.71 L Total Counted Not Reportable PT 27.2 H INR 2.5 Sodium 144 Potassium 3.3 L Chloride 105 Carbon Dioxide 32.0 Anion Gap 7 BUN 49 H Creatinine 1.86 H Estim Creat Clear Calc 21.24 Est GFR (MDRD) Af Amer 34 L Est GFR (MDRD) Non-Af 28 L BUN/Creatinine Ratio 26.3 H Glucose 136 H Calcium 8.2 L Magnesium 02/17/18 06:18 WBC RBC Hgb Hct MCV MCH MCHC RDW RDW Differential Plt Count MPV Immature Gran % (Auto) Neut % (Auto) Lymph % (Auto) Hancock % (Auto) Eos % (Auto) Baso % (Auto) Absolute Neuts (auto) Absolute Lymphs (auto) Total Counted PT INR Sodium Potassium Chloride Carbon Dioxide Anion Gap BUN Creatinine Estim Creat Clear Calc Est GFR (MDRD) Af Amer Est GFR (MDRD) Non-Af BUN/Creatinine Ratio Glucose Calcium Magnesium 1.9 Medical Necessity - Tobacco Use Smoking Status: Heavy Smoker (>10/day) Tobacco Use: Cigarettes Assessment/Plan All Active Problems (Last Reviewed 11/28/17 @ 13:23 by Priyanka Castano) CHF (congestive heart failure) (Acute) Hemoptysis (Acute) Chronic combined systolic and diastolic CHF (congestive heart failure) (Acute) H/O aortic valve replacement (Resolved) WILLIAN (acute kidney injury) (Resolved) Abnormal cardiac enzyme level (Resolved) Chest pain (Resolved) Dehydration (Resolved) Hypokalemia (Resolved) Renal abscess (Resolved) Sinus bradycardia (Resolved) 1. Acute on chronic intermediate CHF exacerbation - Improved. Cardiology following. Back on lasix drip if BP tolerates it. Output >1L so far. Not on ricardo or BB. Echo pending. Hx EF 45%. 2. Hemoptysis - ongoing daily for at least a month. with recent mildly elevated white count, chills at home, hx heavy smoking, breast cancer. Her CXR on friday did not show pna. -Repeat CT shows groundglass, pulmonary edema, atelectasis, mild to moderate right pleural fluid, cardiomegaly, significant aortic calcification -Dark red hemoptysis continues. 3. Hx Mechanical Aortic Valve - unfortunately the patient will need to remain on coumadin. This is also complicated by a hx of GI bleeding earlier this year. May need to consider transition to bioprosthetic valve with ongoing issues. Closely monitor H/H with coumadin therapy. 4. COPD - not acute exacerbation. Continue duonebs. 5. DMt2 - SSI, orals held 6. Hx CAD prior CABG 7. CKD III - slight increase in Cr, BUN slightly down. 8. HLD - statin 9. Hx CVA - residual right eye blindness. Warfarin/Statin 10. Hx FELICIA with prior stenting 11. Hx Carotid disease with prior CEA. 12. Nicotine abuse - patch if desired. Smoked since teenager. ~1ppd currently. 13. Hx BrCa - in remission s/p mastectomy. 14. Hypothyroid - synthroid 15. Anxiety - continue home meds. DVT ppx: coumadin. DC planning: PTOT This patient was seen by South Bhakta PA-C under the supervision of Doctor Radha. <Guilherme Garcia - Last Filed: 02/17/18 14:42> - Physical Exam Vital Signs Temp Pulse Resp BP Pulse Ox 99.0 F 52 L 18 109/55 L 97 02/17/18 11:14 02/17/18 11:14 02/17/18 11:14 02/17/18 11:14 02/17/18 11:14 Oxygen Flow Rate (L/min) 2 Oxygen Delivery Method Nasal Cannula Weight: 73.6 kg Body Mass Index (BMI) 30.7 Intake and Output for Last 24 Hours 02/15/18 02/16/18 02/17/18 23:59 23:59 23:59 Intake Total 323.4 / 323.4 847.8 / 847.8 Output Total 1400 / 1400 1000 / 1000 Balance -1076.6 / -1076.6 -152.2 / -152.2 Laboratory Tests Past 24 Hrs 02/16/18 02/16/18 02/16/18 16:32 16:32 16:32 WBC 7.1 RBC 2.97 L Hgb 9.8 L Hct 30.5 L MCV 102.7 H MCH 33.0 H MCHC 32.1 RDW 14.6 RDW Differential 54.6 H Plt Count 163 MPV 11.8 Immature Gran % (Auto) 0.100 Neut % (Auto) 76.2 H Lymph % (Auto) 11.2 L Hancock % (Auto) 8.3 Eos % (Auto) 3.9 Baso % (Auto) 0.3 Absolute Neuts (auto) 5.4 Absolute Lymphs (auto) 0.80 L Total Counted Not Reportable PT 31.8 H INR 3.1 Sodium 144 Potassium 2.9 L Chloride 105 Carbon Dioxide 30.0 Anion Gap 9 BUN 53 H Creatinine 1.81 H Estim Creat Clear Calc 21.82 Est GFR (MDRD) Af Amer 36 L Est GFR (MDRD) Non-Af 29 L BUN/Creatinine Ratio 29.3 H Glucose 123 H Calcium 8.6 Magnesium 02/17/18 02/17/18 02/17/18 06:18 06:18 06:18 WBC 6.0 RBC 2.75 L Hgb 9.2 L Hct 29.0 L MCV 105.5 H MCH 33.5 H MCHC 31.7 L RDW 13.9 RDW Differential 52.1 H Plt Count 145 L MPV 12.0 Immature Gran % (Auto) 0.200 Neut % (Auto) 73.7 H Lymph % (Auto) 11.8 L Hancock % (Auto) 10.3 H Eos % (Auto) 3.8 Baso % (Auto) 0.2 Absolute Neuts (auto) 4.5 Absolute Lymphs (auto) 0.71 L Total Counted Not Reportable PT 27.2 H INR 2.5 Sodium 144 Potassium 3.3 L Chloride 105 Carbon Dioxide 32.0 Anion Gap 7 BUN 49 H Creatinine 1.86 H Estim Creat Clear Calc 21.24 Est GFR (MDRD) Af Amer 34 L Est GFR (MDRD) Non-Af 28 L BUN/Creatinine Ratio 26.3 H Glucose 136 H Calcium 8.2 L Magnesium 02/17/18 06:18 WBC RBC Hgb Hct MCV MCH MCHC RDW RDW Differential Plt Count MPV Immature Gran % (Auto) Neut % (Auto) Lymph % (Auto) Hancock % (Auto) Eos % (Auto) Baso % (Auto) Absolute Neuts (auto) Absolute Lymphs (auto) Total Counted PT INR Sodium Potassium Chloride Carbon Dioxide Anion Gap BUN Creatinine Estim Creat Clear Calc Est GFR (MDRD) Af Amer Est GFR (MDRD) Non-Af BUN/Creatinine Ratio Glucose Calcium Magnesium 1.9 Assessment/Plan This patient was seen in conjunction with South Bhakta PA-C. I have independently interviewed and examined the patient and reviewed pertinent historical, laboratory, and other data. Please refer to South Bhakta PA-C note for details of this patient's presentation, findings, and recommendations. I have reviewed South Bhakta PA-C note and concur with documented findings. In brief, 72-year-old lady with multiple comorbidities including mechanical aortic valve on systemic anticoagulation with Coumadin who presented with shortness of breath as well as hemoptysis and assessment of acute on chronic congestive heart failure made admitted to a monitored bed for further management Physical Examination: GENERAL: cooperative HEENT: Atraumatic; EYES; Anicteric, Normal Conjunctiva NECK; supple, normal thyroid, RESPIRATORY: Diminished to auscultation bilaterally, CARDIOVASCULAR: Regular S1 S2, systolic click GI: soft, non-tender, normoactive bowel sounds, : No Renal angle tenderness; No boothe EXTREMITIES: 2+ pitting edema PSYCH; Normal affect Assessment: 1. Acute diastolic congestive heart failure EF 50% 2. Hemoptysis in the context of systemic anticoagulation use 3. Status post mechanical aortic valve replacement 4. CAD with previous CABG 5. Diabetes mellitus type 2 with complications including diabetic nephropathy 6. Chronic kidney disease stage III secondary to diabetic nephropathy 7. COPD not in exacerbation 8. Dyslipidemia 9. History of CVA with residual right-sided blindness 10. History of renal atrophy stenosis with subsequent stent placement 11. Carotid artery disease status post carotid endarterectomy 12. Hypothyroidism 13. History of breast CA status post mastectomy has since remained in remission 14. Anxiety disorder 15. Tobacco dependence 16. DVT prophylaxis Recommendations: 1. I have discussed the results of my overview and impressions with the patient 2. Options for management were reviewed Code Visit Inpatient E&M: 77966 Subs Hosp L3
--- NOTE | 2018-02-17 12:23 | NURSING ---
RESTARTED LASIX GTT PER C/ HEIDE AT THIS TIME.
--- NOTE | 2018-02-17 17:50 | PCM.PN.CARD ---
Subjectve: The patient is awake and alert. She denies ongoing chest discomfort. She believes her breathing may be somewhat improved and she was able to lie somewhat more supine but not totally supine day. She continues to have evidence of bilateral lower extremity peripheral pitting edema which she states is uncomfortable for her. Objective: Vital Signs Temp Pulse Resp BP Pulse Ox 97.5 F L 53 L 18 109/52 L 99 02/17/18 17:34 02/17/18 17:34 02/17/18 17:34 02/17/18 17:34 02/17/18 17:34 Oxygen Flow Rate (L/min) 2 Oxygen Delivery Method Nasal Cannula Weight: 162 lb 4.163 oz Body Mass Index (BMI) 30.7 Intake and Output for Last 24 Hours 02/15/18 02/16/18 02/17/18 23:59 23:59 23:59 Intake Total 323.4 / 323.4 1247.8 / 1247.8 Output Total 1400 / 1400 1300 / 1300 Balance -1076.6 / -1076.6 -52.2 / -52.2 General: Awake, Alert, Oriented x 3, Cooperative, No Acute Distress HEENT: Atraumatic, Normocephalic, PERRL, EOMI Oral: Moist Mucosa Neck: Supple, Good ROM, No JVD Lungs: Rhonchi, Expiratory Wheezes-Curtis Cardiovascular: Regular Rhythm, Normal S1, Pershing Prosthetic S2 Abdomen: Bowel Sounds Present, Soft, Non Tender Extremities: Moderate RLE Edema, Mild LLE Edema Neurological: No Focal Motor or Sensory Deficit Psych/Mental Status: Appropriate, Normal Affect 02/17/18 06:18: WBC 6.0, RBC 2.75 L, Hgb 9.2 L, Hct 29.0 L, MCV 105.5 H, MCH 33.5 H, MCHC 31.7 L, RDW 13.9, RDW Differential 52.1 H, Plt Count 145 L, MPV 12.0, Immature Gran % (Auto) 0.200, Neut % (Auto) 73.7 H, Lymph % (Auto) 11.8 L, [place] % (Auto) 10.3 H, Eos % (Auto) 3.8, Baso % (Auto) 0.2, Absolute Neuts (auto) 4.5, Total Counted Not Reportable 02/17/18 06:18: Sodium 144, Potassium 3.3 L, Chloride 105, Carbon Dioxide 32.0, Anion Gap 7, BUN 49 H, Creatinine 1.86 H, Est GFR (MDRD) Af Amer 34 L, Est GFR (MDRD) Non-Af 28 L, BUN/Creatinine Ratio 26.3 H, Glucose 136 H, Calcium 8.2 L 02/17/18 06:18: PT 27.2 H, INR 2.5 02/17/18 06:18: Magnesium 1.9 Rhythm: Sinus rhythm ECHO: 02/17/2018 Interpretation Summary The study was technically difficult. Moderate segmental systolic dysfunction (see wall motion). The estimated ejection fraction is 35 %. Post operative septal motion. Moderate concentric left ventricular hypertrophy. The left atrium is moderately enlarged. The right atrium is mildly enlarged. There is mild to moderate mitral annular calcification. Extension of the mitral annular calcifcation onto the posterior mitral valve leaflets. Anterior leaflet diffuse mitral valve thickening. Moderate (2+) eccentric mitral valve insufficiency. Moderately severe (3+) tricuspid valve insufficiency. Stable appearing mechanical aortic valve apparatus. Trivial transvalvular insufficiency of the aortic valve. Mild (1+) pulmonic valve insufficiency. Right ventricular systolic pressure estimated to be 78 mmHg. Transmitral diastolic flow velocities suggest diastolic dysfunction (pseudonormal pattern). Medical Necessity - Tobacco Use Smoking Status: Heavy Smoker (>10/day) Tobacco Use: Cigarettes Assessment/Plan 1. 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 She is continuing IV diuretic therapy. Her IV diuretics have been adjusted in order to compensate for vital sign changes/transient decreased systolic blood pressure, her clinical status with volume overload, while monitoring her renal function and electrolytes, etc. Based upon her echocardiographic findings suggesting her LV has regional wall motion abnormalities and overall diminished LV systolic function would not be unreasonable to consider reevaluating her in the cardiac catheterization laboratory with respect to possible progression of underlying CAD and/or graft vessel disease. In order to do this the patient will have to have improvement in her clinical status to be able to lie supine comfortably as well as decrease in her INR level and an acceptable creatinine level. 2. Status post aortic valve replacement-mechanical The present time the patient does have a underlying mechanical aortic valve apparatus. On examination she does appear to have a crisp prosthetic click. Based upon her echocardiographic studies her mechanical aortic valve prosthesis appears to be stable. She will need to continue AHA antibiotic prophylaxis as deemed appropriate. She will also need to continue anticoagulation therapy with warfarin/Coumadin with adjustment as deemed appropriate in and around the time of other procedures. 3. CAD status post CABG The patient has not had ongoing symptoms of classic angina pectoris nor has she been found to have evidence of acute coronary syndrome/UT. As noted above, based upon concerns of left ventricular regional wall motion abnormalities and diminished LV systolic function it was felt reasonable she be reassessed with diagnostic cardiac catheterization. The procedure and risks were discussed with her and she was agreeable to this approach. She will need clinical improvement as well as a decreased INR level and an acceptable creatinine level, etc., prior to proceeding with such. 4. Peripheral arterial occlusive disease The patient does have a history of underlying renal artery stenosis having undergone left renal artery percutaneous intervention as noted above as well as carotid artery disease having undergone carotid endarterectomy. Depending upon her clinical course, vital signs, etc. consideration will be given as to whether or not she needs reassessment of her renal artery status. 5. Hyperlipidemia She will continue lipid-lowering therapy as deemed appropriate. 6. Hypertension Her blood pressures will be followed. Her medications can be adjusted as needed. 7. Diabetes mellitus She will continue under the care of internal medicine for this. 8. Renal insufficiency She does have a history of renal insufficiency. This has been chronic. She may have acute on chronic changes. Her renal function will be followed as she undergoes medical evaluation and care. 9. COPD She will need to continue evaluation care per internal medicine and potentially pulmonology. 10. Hemoptysis She has been having episodes of hemoptysis. She is now being evaluated by Dr. Blair of pulmonology and critical care medicine. 11. Gastrointestinal bleeding She does have a history of previous GI bleeding. She has been evaluated at other facilities for this in the past. She has received PRBCs in the past. 12. Anemia She does have evidence of anemia. This may be multifactorial such as anemia of chronic disease as well as blood loss secondary to concerns of hemoptysis and her previous GI bleeding history. Her H&H will need to be followed. Depending upon her level she may need PRBC transfusion. Of concern, with respect to her bleeding process, if these events continue, if she continues to have evidence of concerning anemia, then consideration may have to be given in the future as whether or not she would be considered by CT surgery for reevaluation for explant of her mechanical aortic valve prosthesis and implant of a bioprosthetic aortic valve prosthesis. Comment: The patient's case was discussed and reviewed with the patient and the [facility] staff. This note was generated with [employer] dictation software. It may contain incorrect words, spelling, and punctuation that were not noted in checking the note before signing.
[2018-02-17] MEDS: Sertraline 100 MG Tablet PO (21:59)
[2018-02-17] MEDS: Atorvastatin Calcium 40 MG Tablet PO (21:59)
[2018-02-18] VITALS (19 sets, daily range): BP systolic 93–112; BP diastolic 37–61; PULSE 51–69; RESP 16–20; TEMP 36.5–37; O2SAT 93–99
[2018-02-18 00:26] LABS: Bacteria 0 SEEN /hpf (None Seen); Mucous, Urine 0 SEEN /hpf (<or=2+); Red Blood Cells-Urine 0 SEEN /hpf (0-5); White Blood Cells 0 SEEN /hpf (0-5)
[2018-02-18 00:35] LABS: Color, Urine Yellow (Yellow); Glucose, Dipstick Normal (Normal); Ketone-Dipstick Negative (Negative); Leukocyte Esterase-Dipstick Negative /ul (Negative); Nitrite-Dipstick Negative (Negative); Occult Blood-Urine 10 /ul (Negative); Protein-Dipstick 100 mg/dl (Negative); Specific Gravity, Urine 1.015 (1.002-1.030); Urine Bilirubin Dipstick Negative (Negative); Urine Clarity Clear (Clear); Urine Urobilinogen Normal (Normal)
[2018-02-18 00:42] LABS: Squamous Epithelial Cells - UA 0-5 SEEN /hpf (5-10)
--- NOTE | 2018-02-18 04:30 | EKG12_ITS ---
Test Reason : MORNING EKG Blood Pressure : / mmHG Vent. Rate : 050 BPM Atrial Rate : 050 BPM P-R Int : 182 ms QRS Dur : 106 ms QT Int : 494 ms P-R-T Axes : 063 -15 165 degrees QTc Int : 450 ms Sinus bradycardia with Premature atrial complexes Left ventricular hypertrophy with repolarization abnormality Abnormal ECG Confirmed by LUIS MIGUEL SAUCEDO, MUNIRA ([id number]), graphics editor NIKKI ESPINAL ([id number]) on 02/19/2018 2:09:02 PM Referred By: Odilon Anderson Confirmed By:MUNIRA BOLANOS MD
[2018-02-18 05:05] LABS: Absolute Neutrophil Count 5.4 X10^3/uL (2.0-7.7); Basophil# 0.02 X10^3/uL; Basophil% 0.3 % (0-1); Eosinophil# 0.27 X10^3/uL; Eosinophils% 3.8 % (0-5); Hematocrit 29.3 % (37-47); Hemoglobin 9.4 g/dl (12.0-15.0); Mean Corp Hgb Conc 32.1 g/gl (32-36); Mean Corpuscular Hgb 34.1 pg (27.0-32.0); Mean Corpuscular Volume 106.2 fL (81-99); Mean Platelet Vol. 12.3 fl (6.2-12.0); Monocyte# 0.62 X10^3/uL; Monocyte% 8.8 % (0-10); Platelet Count 154 K/mm3 (150-450); RBC Distribution Width CV 13.8 % (11.6-14.6); Red Blood Count 2.76 M/mm3 (4.2-5.4)
[2018-02-18 05:12] LABS: International Normalized Ratio 1.8; Prothrombin Time (Protime)PT. 21.2 SECONDS (11.7-14.9)
--- NOTE | 2018-02-18 05:15 | NURSING ---
This nurse called patient's son, ana Peterson , and informed him that we do not have specific time for heart cath and have no order until MD sees pt. and lab work. This nurse instructed son that pt. may have procedure early around 0700 or later after noon. Son had wanted to be contacted with time so he could be here prior to pt. leaving for heart cath.
[2018-02-18 05:19] LABS: Anion Gap 9 (5-15); BUN 50 mg/dL (7-18); BUN/Creat Ratio 29.2 RATIO (10-20); Calcium,Total 8.6 mg/dL (8.5-10.1); Chloride 105 mmol/L (98-107); Creatinine, Serum 1.71 mg/dL (0.55-1.02); EST Glomerular Filtration Rate 31 mL/min (>60); Est Glom Filt Rate - Afr Amer 38 mL/min (>60); Glucose 153 mg/dL (74-106); Sodium Level 144 mmol/L (136-145)
[2018-02-18 05:21] LABS: POSITIVE COUNT NO; POSITIVE DIFFERENTIAL NO; POSITIVE MORPHOLOGY NO; Partial Thromboplast Time 47.4 Seconds (24.1-36.2)
[2018-02-18] MEDS: Ipratropium/Albuterol Sulfate 3 ML AMPUL.NEB INHALATION ×4 (06:34→18:53)
[2018-02-18] MEDS: Levothyroxine 75 MCG Tablet PO (07:09)
[2018-02-18] MEDS: 0.9% NaCl Peripheral Flush Adult/Peds IV ×3 (07:21→11:17)
--- NOTE | 2018-02-18 08:00 | NURSING ---
Pt. unable to tolerate KCL IV . Burned terribly and pt. screaming to stop it. IV stopped, Dr. Medina in room and notified.
--- NOTE | 2018-02-18 08:47 | VDLE_ITS ---
Reason For Study: swelling RIGHT LEFT GSV is normal. GSV is normal. CFV is compressible, spontaneous, phasic, CFV is compressible, spontaneous, phasic, competent and demonstrates normal competent, and demonstrates normal augmentation. augmentation. FV is compressible, spontaneous, phasic, FV is compressible, spontaneous, phasic, competent and demonstrates normal competent and demonstrates normal augmentation. augmentation. POP V is compressible, spontaneous, phasic, POP V is compressible, spontaneous, phasic, competent and demonstrates normal competent and demonstrates normal augmentation. augmentation. T/P Trunk is compressible. T/P Trunk is compressible. PTV is compressible. PTV is compressible. RT PerV is compressible. LT PerV is compressible. Procedure Exam performed in department. A preliminary report was called and/or faxed to [facility]. Interpretation Summary Deep veins of the lower extremities are bilaterally patent and compressible segmentally. There is no evidence of deep vein thrombosis on either side. Valvular competence appears intact within the proximal deep venous systems bilaterally. The greater saphenous veins appear bilaterally patent and compressible segmentally. Ordering Physician: John Medina Referring Physician: LAUREL FISHMAN Performed By: Lala De Paz, ELIAS, RVT
--- NOTE | 2018-02-18 08:55 | PN.CARD_ITS ---
Subjectve: The patient is awake and alert. She denies chest discomfort. She continues to complain of shortness of breath and dyspnea and lower extremity edema. She states she was unable to lie supine yesterday evening/night based upon her respiratory related issues. She still feels better, with respect to her respiratory issues, sitting up in the chair. Objective: Vital Signs Temp Pulse Resp BP Pulse Ox 98.4 F 51 L 16 93/47 L 95 02/18/18 05:30 02/18/18 07:12 02/18/18 06:34 02/18/18 05:30 02/18/18 06:34 Oxygen Flow Rate (L/min) 2 Oxygen Delivery Method Nasal Cannula Weight: 160 lb 14.999 oz Body Mass Index (BMI) 30.7 Intake and Output for Last 24 Hours 02/16/18 02/17/18 02/18/18 23:59 23:59 23:59 Intake Total 323.4 / 323.4 1447.8 / 1447.8 100 / 100 Output Total 1400 / 1400 1950 / 1950 950 / 950 Balance -1076.6 / -1076.6 -502.2 / -502.2 -850 / -850 General: Awake, Alert, Oriented x 3, Cooperative, No Acute Distress HEENT: Atraumatic, Normocephalic, PERRL, EOMI, Sclera Non Icteric Oral: Moist Mucosa Neck: Supple, Good ROM, No JVD Lungs: Rhonchi, Expiratory Wheezes-[place] Cardiovascular: Regular Rhythm, Premature Ectopic Beats, Normal S1, [place] Prosthetic S2 Abdomen: Bowel Sounds Present, Soft, Non Tender Extremities: Moderate RLE Edema, Moderate LLE Edema Neurological: No Focal Motor or Sensory Deficit Psych/Mental Status: Appropriate, Normal Affect 02/17/18 06:18: Magnesium 1.9 02/17/18 23:35: Urine Color Yellow, Urine Clarity Clear, Urine pH 6.0, Ur Specific [place] 1.015, Urine Protein 100 H, Urine Glucose (UA) Normal, Urine Ketones Negative, Urine Occult Blood 10 H, Urine Nitrite Negative, Urine Bilirubin Negative, Urine Urobilinogen Normal, Ur Leukocyte Esterase Negative, Urine RBC 0 SEEN, Urine WBC 0 SEEN 02/18/18 04:32: WBC 7.0, RBC 2.76 L, Hgb 9.4 L, Hct 29.3 L, MCV 106.2 H, MCH 34.1 H, MCHC 32.1, RDW 13.8, RDW Differential 52.0 H, Plt Count 154, MPV 12.3 H, Immature Gran % (Auto) 0.100, Neut % (Auto) 77.0 H, Lymph % (Auto) 10.0 L, [place] % (Auto) 8.8, Eos % (Auto) 3.8, Baso % (Auto) 0.3, Absolute Neuts (auto) 5.4, Total Counted Not Reportable 02/18/18 04:32: Sodium 144, Potassium 3.0 L, Chloride 105, Carbon Dioxide 30.0, Anion Gap 9, BUN 50 H, Creatinine 1.71 H, Est GFR (MDRD) Af Amer 38 L, Est GFR (MDRD) Non-Af 31 L, BUN/Creatinine Ratio 29.2 H, Glucose 153 H, Calcium 8.6 02/18/18 04:32: PT 21.2 H, INR 1.8 02/18/18 04:32: APTT 47.4 H Rhythm: Sinus rhythm Medical Necessity - Tobacco Use Smoking Status: Heavy Smoker (>10/day) Tobacco Use: Cigarettes Assessment/Plan 1. 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 She is continuing IV diuretic therapy. Her IV diuretics have been adjusted in order to compensate for vital sign changes/transient decreased systolic blood pressure, her clinical status with volume overload, while monitoring her renal function and electrolytes, etc. Based upon her echocardiographic findings suggesting her LV has regional wall motion abnormalities and overall diminished LV systolic function would not be unreasonable to consider reevaluating her in the cardiac catheterization laboratory with respect to possible progression of underlying CAD and/or graft vessel disease. In order to do this the patient will have to have improvement in her clinical status to be able to lie supine comfortably as well as decrease in her INR level and an acceptable creatinine level. Her INR levels have decreased. Her creatinine appears to be improved. However, she continues with her respiratory related issues and is still not comfortable lying supine for any prolonged period of time. Thus it does not appear she will be able to proceed with further evaluation with diagnostic cardiac catheterization at this time. Both her and her son are concerned, based upon her ongoing lower extremity peripheral pitting edema despite diuretic therapy, that she may be harboring lower extremity venous thrombosis. Hopefully this is not the case as she has been on anticoagulant therapy unless she has had subtherapeutic INRs that would allow such a situation to occur. Thus she will undergo further evaluation with venous duplex study. 2. Status post aortic valve replacement-mechanical The present time the patient does have a underlying mechanical aortic valve apparatus. On examination she does appear to have a crisp prosthetic click. Based upon her echocardiographic studies her mechanical aortic valve prosthesis appears to be stable. She will need to continue AHA antibiotic prophylaxis as deemed appropriate. She will also need to continue anticoagulation therapy with warfarin/Coumadin with adjustment as deemed appropriate in and around the time of other procedures. As her INR levels have decreased she will be placed on anticoagulant therapy with IV heparin pending further evaluation and care. 3. CAD status post CABG The patient has not had ongoing symptoms of classic angina pectoris nor has she been found to have evidence of acute coronary syndrome/MA. As noted above, based upon concerns of left ventricular regional wall motion abnormalities and diminished LV systolic function it was felt reasonable she be reassessed with diagnostic cardiac catheterization. The procedure and risks were discussed with her and she was agreeable to this approach. Noted above, this cannot occur until she is able to undergo such a procedure from a respiratory standpoint. 4. Peripheral arterial occlusive disease The patient does have a history of underlying renal artery stenosis having undergone left renal artery percutaneous intervention as noted above as well as carotid artery disease having undergone carotid endarterectomy. Depending upon her clinical course, vital signs, etc. consideration will be given as to whether or not she needs reassessment of her renal artery status. 5. Hyperlipidemia She will continue lipid-lowering therapy as deemed appropriate. 6. Hypertension Her blood pressures will be followed. Her medications can be adjusted as needed. 7. Diabetes mellitus She will continue under the care of internal medicine for this. 8. Renal insufficiency She does have a history of renal insufficiency. This has been chronic. She may have acute on chronic changes. Her renal function will be followed as she undergoes medical evaluation and care. 9. COPD She will need to continue evaluation care per internal medicine and potentially pulmonology. 10. Hemoptysis She has been having episodes of hemoptysis. She is now being evaluated by Dr. Blair of pulmonology and critical care medicine. His input after evaluating the patient, evaluating her radiologic studies, and evaluating her out of hospital studies, will be most appreciated. 11. Gastrointestinal bleeding She does have a history of previous GI bleeding. She has been evaluated at other facilities for this in the past. She has received PRBCs in the past. 12. Anemia She does have evidence of anemia. This may be multifactorial such as anemia of chronic disease as well as blood loss secondary to concerns of hemoptysis and her previous GI bleeding history. Her H&H will need to be followed. Depending upon her level she may need PRBC transfusion. Of concern, with respect to her bleeding process, if these events continue, if she continues to have evidence of concerning anemia, then consideration may have to be given in the future as whether or not she would be considered by CT surgery for reevaluation for explant of her mechanical aortic valve prosthesis and implant of a bioprosthetic aortic valve prosthesis. Comment: The patient's case was discussed and reviewed with the patient, her son, and Dr. Blair. This note was generated with [employer] dictation software. It may contain incorrect words, spelling, and punctuation that were not noted in checking the note before signing.
[2018-02-18] MEDS: NYSTATIN 500,000 UNIT/5 ML UDC 500000 UNIT PO ×4 (10:10→21:04)
[2018-02-18] MEDS: Allopurinol 100 MG Tablet PO (10:11)
[2018-02-18] MEDS: HEPARIN/D5w 25,000 UNITS 25,000 UNITS/250 ML IV.SOLN. 11 UNITS IV (10:24)
[2018-02-18] MEDS: Calcitriol 0.25 MCG Capsule PO (10:24)
[2018-02-18 11:08] LABS: Albumin, Serum 2.4 g/dL (3.2-5.0)
--- NOTE | 2018-02-18 12:25 | PCM.PROGNOTE ---
Patient Problems: Active and Suspected Problems (Last Reviewed 11/28/17 @ 13:23 by Priyanka Castano) CHF (congestive heart failure) (Acute) Hemoptysis (Acute) Subjective: The patient was seen and examined at the bedside this morning. Events from the last 24 hours have been reviewed. The patient is currently afebrile, hemodynamically stable and maintaining appropriate oxygen saturations on 1-2 L/min via nasal cannula. The patient is currently sitting in her bedside recliner receiving an aerosol treatment. She does report continued shortness of breath and an occasional productive cough. However, her hemoptysis has resolved at this time. Objective: The patient's most recent lab work, culture data and imaging studies have all been personally reviewed. Respiratory viral panel is pending. CT chest revealed bilateral groundglass opacities. Surface echocardiogram revealed moderate segmental systolic dysfunction with an ejection fraction of 35%. Right ventricular systolic pressure was estimated to be 78 mmHg. - Physical Exam General: Alert, Cooperative, No apparent distress, - - Sitting in bedside recliner. HEENT: Atraumatic, PERRLA, Normocephalic Oral: No Gingival or Mucosal Lesions/ Ulcerations Neck: Supple, No Nodes, Trachea Midline Lungs: Diminished, Rales, Wheezes Cardiovascular: Regular rate, Regular Rhythm, Normal S1, Normal S2, Murmur Abdomen: Bowel Sounds Present, Soft, Non Tender Extremities: No clubbing, No cyanosis, Edema Skin: No breakdown Musculoskeletal: No Tenderness to Palpation of Joints or Extremities Lymphatic: No Cervical, Supraclavicular, or Inguinal Adenopathy Neurological: Neuro grossly intact Psych/Mental Status: Normal Affect, Appropriate Vital Signs Temp Pulse Resp BP Pulse Ox 98 F 56 L 16 95/47 L 97 02/18/18 09:37 02/18/18 11:06 02/18/18 10:42 02/18/18 09:37 02/18/18 09:37 Oxygen Flow Rate (L/min) 1.5 Oxygen Delivery Method Nasal Cannula Weight: 160 lb 14.999 oz Body Mass Index (BMI) 30.7 Intake and Output for Last 24 Hours 02/16/18 02/17/18 02/18/18 23:59 23:59 23:59 Intake Total 323.4 / 323.4 1447.8 / 1447.8 100 / 100 Output Total 1400 / 1400 1950 / 1950 1150 / 1150 Balance -1076.6 / -1076.6 -502.2 / -502.2 -1050 / -1050 Laboratory Tests Past 24 Hrs 02/17/18 02/18/18 02/18/18 23:35 04:32 04:32 WBC 7.0 RBC 2.76 L Hgb 9.4 L Hct 29.3 L MCV 106.2 H MCH 34.1 H MCHC 32.1 RDW 13.8 RDW Differential 52.0 H Plt Count 154 MPV 12.3 H Immature Gran % (Auto) 0.100 Neut % (Auto) 77.0 H Lymph % (Auto) 10.0 L [place] % (Auto) 8.8 Eos % (Auto) 3.8 Baso % (Auto) 0.3 Absolute Neuts (auto) 5.4 Absolute Lymphs (auto) 0.70 L Total Counted Not Reportable PT INR APTT Sodium 144 Potassium 3.0 L Chloride 105 Carbon Dioxide 30.0 Anion Gap 9 BUN 50 H Creatinine 1.71 H Estim Creat Clear Calc 23.10 Est GFR (MDRD) Af Amer 38 L Est GFR (MDRD) Non-Af 31 L BUN/Creatinine Ratio 29.2 H Glucose 153 H Calcium 8.6 Albumin Urine Color Yellow Urine Clarity Clear Urine pH 6.0 Ur Specific [place] 1.015 Urine Protein 100 H Urine Glucose (UA) Normal Urine Ketones Negative Urine Occult Blood 10 H Urine Nitrite Negative Urine Bilirubin Negative Urine Urobilinogen Normal Ur Leukocyte Esterase Negative Urine RBC 0 SEEN Urine WBC 0 SEEN Ur Squamous Epith Cells 0-5 SEEN Urine Bacteria 0 SEEN Urine Mucus 0 SEEN 02/18/18 02/18/18 02/18/18 04:32 04:32 04:32 WBC RBC Hgb Hct MCV MCH MCHC RDW RDW Differential Plt Count MPV Immature Gran % (Auto) Neut % (Auto) Lymph % (Auto) [place] % (Auto) Eos % (Auto) Baso % (Auto) Absolute Neuts (auto) Absolute Lymphs (auto) Total Counted PT 21.2 H INR 1.8 APTT 47.4 H Sodium Potassium Chloride Carbon Dioxide Anion Gap BUN Creatinine Estim Creat Clear Calc Est GFR (MDRD) Af Amer Est GFR (MDRD) Non-Af BUN/Creatinine Ratio Glucose Calcium Albumin 2.4 L Urine Color Urine Clarity Urine pH Ur Specific [place] Urine Protein Urine Glucose (UA) Urine Ketones Urine Occult Blood Urine Nitrite Urine Bilirubin Urine Urobilinogen Ur Leukocyte Esterase Urine RBC Urine WBC Ur Squamous Epith Cells Urine Bacteria Urine Mucus Clinical Impression(s) from Imaging Studies Chest X-Ray 02/16/18 16:12 IMPRESSION: There is moderate enlargement of the cardiac silhouette with vascular congestion. There is no obvious effusion. There is stable COPD with mild diffuse fibrosis. Electronically Signed: Karli Mancilla MD at 17:12 EDT Tel Direct: [phone], Service support , Chest CT 02/17/18 08:38 IMPRESSION: 1. Diffuse interlobular septal thickening with groundglass opacities in both lungs. They are suggestive of hydrostatic pulmonary edema. 2. Focal atelectases in the right posterior lung base and mild to moderate right posterior pleural fluid. 3. Cardiomegaly with aortic valve prosthesis. 4. Dense vascular calcifications of the thoracic aorta and all its branches. Electronically Signed: Lukasz Shelley MD at 10:40 EDT , Service support , Medical Necessity - Tobacco Use Smoking Status: Heavy Smoker (>10/day) Tobacco Use: Cigarettes Assessment/Plan All Active Problems (Last Reviewed 11/28/17 @ 13:23 by Priyanka Casatno) CHF (congestive heart failure) (Acute) Hemoptysis (Acute) Chronic combined systolic and diastolic CHF (congestive heart failure) (Acute) H/O aortic valve replacement (Resolved) WILLIAN (acute kidney injury) (Resolved) Abnormal cardiac enzyme level (Resolved) Chest pain (Resolved) Dehydration (Resolved) Hypokalemia (Resolved) Renal abscess (Resolved) Sinus bradycardia (Resolved) RECOMMENDATIONS: 1. Continue volume optimization with IV diuretics as ordered. 2. Continue scheduled bronchodilators. We will add IV steroids today given significant wheezing on exam. 3. Check respiratory viral panel. 4. Will review records from [facility]. 5. Smoking cessation is strongly advisable. 6. Is highly recommended that the patient follow-up in the pulmonary medicine clinic so that baseline pulmonary function testing can be completed. In addition, she is currently on a suboptimal inhaler regimen. IMPRESSIONS: 1. Intermittent hemoptysis Unclear if the patient's intermittent hemoptysis is related to her fluctuating INR levels, coupled with her underlying presumptive obstructive lung disease. She does report having an abnormal chest CT completed a month ago at [facility]. However, a follow-up chest CT completed here only revealed bilateral groundglass opacities consistent with decompensated heart failure. We will review the patient's prior CT chest results from [facility] once they have been received. At the current time, the patient reports that her hemoptysis has resolved. We will continue to monitor accordingly. 2. Presumptive COPD of unknown severity It is highly advisable that the patient follow-up in the pulmonary medicine clinic so that baseline PFTs can be completed. She reports that she is currently prescribed Asmanex and as needed albuterol in her home environment. If the patient does have straightforward obstructive lung disease, this inhaler regimen is significantly suboptimal for her lung disease. Given that the patient does have continued wheezing on examination, will add IV steroids to her regimen today. In addition, I am going to check a respiratory viral panel. 3. Ongoing tobacco dependency Smoking cessation is strongly advised. Nicotine replacement therapy can be offered while she is admitted to the hospital. 4. Acute on chronic CHF exacerbation Continue current medical management and diuretic therapy per cardiology recommendations. 5. Diabetes/chronic kidney disease/hyperlipidemia/mechanical aortic valve in situ Complicates care, management, recovery and prognosis. Continue Coumadin for now as ordered. This note was generated with [employer] dictation software. It may contain incorrect words, spelling, and punctuation that were not noted in checking the note before signing. Code Visit Inpatient E&M: 30707 Subs Hosp L2
--- NOTE | 2018-02-18 12:31 | PN_ITS ---
Patient Problems: Active and Suspected Problems (Last Reviewed 11/28/17 @ 13:23 by Priyanka Castano) CHF (congestive heart failure) (Acute) Hemoptysis (Acute) Subjective: The patient was seen and examined at the bedside this morning. Events from the last 24 hours have been reviewed. The patient is currently afebrile, hemodynamically stable and maintaining appropriate oxygen saturations on 1-2 L/min via nasal cannula. The patient is currently sitting in her bedside recliner receiving an aerosol treatment. She does report continued shortness of breath and an occasional productive cough. However, her hemoptysis has resolved at this time. Objective: The patient's most recent lab work, culture data and imaging studies have all been personally reviewed. Respiratory viral panel is pending. CT chest revealed bilateral groundglass opacities. Surface echocardiogram revealed moderate segmental systolic dysfunction with an ejection fraction of 35%. Right ventricular systolic pressure was estimated to be 78 mmHg. - Physical Exam General: Alert, Cooperative, No apparent distress, - - Sitting in bedside recliner. HEENT: Atraumatic, PERRLA, Normocephalic Oral: No Gingival or Mucosal Lesions/ Ulcerations Neck: Supple, No Nodes, Trachea Midline Lungs: Diminished, Rales, Wheezes Cardiovascular: Regular rate, Regular Rhythm, Normal S1, Normal S2, Murmur Abdomen: Bowel Sounds Present, Soft, Non Tender Extremities: No clubbing, No cyanosis, Edema Skin: No breakdown Musculoskeletal: No Tenderness to Palpation of Joints or Extremities Lymphatic: No Cervical, Supraclavicular, or Inguinal Adenopathy Neurological: Neuro grossly intact Psych/Mental Status: Normal Affect, Appropriate Vital Signs Temp Pulse Resp BP Pulse Ox 98 F 56 L 16 95/47 L 97 02/18/18 09:37 02/18/18 11:06 02/18/18 10:42 02/18/18 09:37 02/18/18 09:37 Oxygen Flow Rate (L/min) 1.5 Oxygen Delivery Method Nasal Cannula Weight: 160 lb 14.999 oz Body Mass Index (BMI) 30.7 Intake and Output for Last 24 Hours 02/16/18 02/17/18 02/18/18 23:59 23:59 23:59 Intake Total 323.4 / 323.4 1447.8 / 1447.8 100 / 100 Output Total 1400 / 1400 1950 / 1950 1150 / 1150 Balance -1076.6 / -1076.6 -502.2 / -502.2 -1050 / -1050 Laboratory Tests Past 24 Hrs 02/17/18 02/18/18 02/18/18 23:35 04:32 04:32 WBC 7.0 RBC 2.76 L Hgb 9.4 L Hct 29.3 L MCV 106.2 H MCH 34.1 H MCHC 32.1 RDW 13.8 RDW Differential 52.0 H Plt Count 154 MPV 12.3 H Immature Gran % (Auto) 0.100 Neut % (Auto) 77.0 H Lymph % (Auto) 10.0 L [place] % (Auto) 8.8 Eos % (Auto) 3.8 Baso % (Auto) 0.3 Absolute Neuts (auto) 5.4 Absolute Lymphs (auto) 0.70 L Total Counted Not Reportable PT INR APTT Sodium 144 Potassium 3.0 L Chloride 105 Carbon Dioxide 30.0 Anion Gap 9 BUN 50 H Creatinine 1.71 H Estim Creat Clear Calc 23.10 Est GFR (MDRD) Af Amer 38 L Est GFR (MDRD) Non-Af 31 L BUN/Creatinine Ratio 29.2 H Glucose 153 H Calcium 8.6 Albumin Urine Color Yellow Urine Clarity Clear Urine pH 6.0 Ur Specific [place] 1.015 Urine Protein 100 H Urine Glucose (UA) Normal Urine Ketones Negative Urine Occult Blood 10 H Urine Nitrite Negative Urine Bilirubin Negative Urine Urobilinogen Normal Ur Leukocyte Esterase Negative Urine RBC 0 SEEN Urine WBC 0 SEEN Ur Squamous Epith Cells 0-5 SEEN Urine Bacteria 0 SEEN Urine Mucus 0 SEEN 02/18/18 02/18/18 02/18/18 04:32 04:32 04:32 WBC RBC Hgb Hct MCV MCH MCHC RDW RDW Differential Plt Count MPV Immature Gran % (Auto) Neut % (Auto) Lymph % (Auto) [place] % (Auto) Eos % (Auto) Baso % (Auto) Absolute Neuts (auto) Absolute Lymphs (auto) Total Counted PT 21.2 H INR 1.8 APTT 47.4 H Sodium Potassium Chloride Carbon Dioxide Anion Gap BUN Creatinine Estim Creat Clear Calc Est GFR (MDRD) Af Amer Est GFR (MDRD) Non-Af BUN/Creatinine Ratio Glucose Calcium Albumin 2.4 L Urine Color Urine Clarity Urine pH Ur Specific [place] Urine Protein Urine Glucose (UA) Urine Ketones Urine Occult Blood Urine Nitrite Urine Bilirubin Urine Urobilinogen Ur Leukocyte Esterase Urine RBC Urine WBC Ur Squamous Epith Cells Urine Bacteria Urine Mucus Clinical Impression(s) from Imaging Studies Chest X-Ray 02/16/18 16:12 IMPRESSION: There is moderate enlargement of the cardiac silhouette with vascular congestion. There is no obvious effusion. There is stable COPD with mild diffuse fibrosis. Electronically Signed: Karli Mancilla MD at 17:12 EDT Tel Direct: [phone], Service support , Chest CT 02/17/18 08:38 IMPRESSION: 1. Diffuse interlobular septal thickening with groundglass opacities in both lungs. They are suggestive of hydrostatic pulmonary edema. 2. Focal atelectases in the right posterior lung base and mild to moderate right posterior pleural fluid. 3. Cardiomegaly with aortic valve prosthesis. 4. Dense vascular calcifications of the thoracic aorta and all its branches. Electronically Signed: Lukasz Shelley MD at 10:40 EDT , Service support , Medical Necessity - Tobacco Use Smoking Status: Heavy Smoker (>10/day) Tobacco Use: Cigarettes Assessment/Plan All Active Problems (Last Reviewed 11/28/17 @ 13:23 by Priyanka Castano) CHF (congestive heart failure) (Acute) Hemoptysis (Acute) Chronic combined systolic and diastolic CHF (congestive heart failure) (Acute) H/O aortic valve replacement (Resolved) WILLIAN (acute kidney injury) (Resolved) Abnormal cardiac enzyme level (Resolved) Chest pain (Resolved) Dehydration (Resolved) Hypokalemia (Resolved) Renal abscess (Resolved) Sinus bradycardia (Resolved) RECOMMENDATIONS: 1. Continue volume optimization with IV diuretics as ordered. 2. Continue scheduled bronchodilators. We will add IV steroids today given significant wheezing on exam. 3. Check respiratory viral panel. 4. Will review records from [facility]. 5. Smoking cessation is strongly advisable. 6. Is highly recommended that the patient follow-up in the pulmonary medicine clinic so that baseline pulmonary function testing can be completed. In addition, she is currently on a suboptimal inhaler regimen. IMPRESSIONS: 1. Intermittent hemoptysis Unclear if the patient's intermittent hemoptysis is related to her fluctuating INR levels, coupled with her underlying presumptive obstructive lung disease. She does report having an abnormal chest CT completed a month ago at [facility]. However, a follow-up chest CT completed here only revealed bilateral groundglass opacities consistent with decompensated heart failure. We will review the patient's prior CT chest results from [facility] once they have been received. At the current time, the patient reports that her hemoptysis has resolved. We will continue to monitor accordingly. 2. Presumptive COPD of unknown severity It is highly advisable that the patient follow-up in the pulmonary medicine clinic so that baseline PFTs can be completed. She reports that she is currently prescribed Asmanex and as needed albuterol in her home environment. If the patient does have straightforward obstructive lung disease, this inhaler regimen is significantly suboptimal for her lung disease. Given that the patient does have continued wheezing on examination, will add IV steroids to her regimen today. In addition, I am going to check a respiratory viral panel. 3. Ongoing tobacco dependency Smoking cessation is strongly advised. Nicotine replacement therapy can be offered while she is admitted to the hospital. 4. Acute on chronic CHF exacerbation Continue current medical management and diuretic therapy per cardiology recommendations. 5. Diabetes/chronic kidney disease/hyperlipidemia/mechanical aortic valve in situ Complicates care, management, recovery and prognosis. Continue Coumadin for now as ordered. This note was generated with [employer] dictation software. It may contain incorrect words, spelling, and punctuation that were not noted in checking the note before signing. Code Visit Inpatient E&M: 43993 Subs Hosp L2
--- NOTE | 2018-02-18 13:08 | NURSING ---
Read and reviewed SN documentation
--- NOTE | 2018-02-18 13:48 | PN_ITS ---
<South Bhakta - Last Filed: 02/18/18 13:44> Patient Problems: Active and Suspected Problems (Last Reviewed 11/28/17 @ 13:23 by Priyanka Castano) CHF (congestive heart failure) (Acute) Hemoptysis (Acute) Subjective: She continues to be SOB, significantly wheezy, and cannot lay flat. BL LE edema still present but improved. No dizziness/LH. No CP. - Physical Exam General: Alert, Oriented x3, Cooperative HEENT: Atraumatic, PERRLA, EOMI, Normocephalic Neck: Supple, No JVD, Negative Carotid Bruits Lungs: Wheezes Cardiovascular: Regular rate, No murmurs Abdomen: Bowel Sounds Present, Soft, Non Tender Extremities: No edema, Capillary Refill Less than 3 Seconds, Edema Skin: No rashes, No breakdown Musculoskeletal: No Tenderness to Palpation of Joints or Extremities Neurological: Cranial nerves II-XII grossly intact Psych/Mental Status: Normal Affect, Appropriate, Alert and oriented to time, place, person, mood and affect Vital Signs Temp Pulse Resp BP Pulse Ox 98.3 F 69 16 105/61 97 02/18/18 13:15 02/18/18 13:15 02/18/18 13:15 02/18/18 13:15 02/18/18 13:15 Oxygen Flow Rate (L/min) 1.5 Oxygen Delivery Method Nasal Cannula Weight: 160 lb 14.999 oz Body Mass Index (BMI) 30.7 Intake and Output for Last 24 Hours 02/16/18 02/17/18 02/18/18 23:59 23:59 23:59 Intake Total 323.4 / 323.4 1447.8 / 1447.8 395.5 / 395.5 Output Total 1400 / 1400 1950 / 1950 1650 / 1650 Balance -1076.6 / -1076.6 -502.2 / -502.2 -1254.5 / -1254.5 Microbiology Past 72 Hours 02/18/18 10:35 Respiratory Panel (PCR) - Final Mucosa - Nasopharyngeal Laboratory Tests Past 24 Hrs 02/17/18 02/18/18 02/18/18 23:35 04:32 04:32 WBC 7.0 RBC 2.76 L Hgb 9.4 L Hct 29.3 L MCV 106.2 H MCH 34.1 H MCHC 32.1 RDW 13.8 RDW Differential 52.0 H Plt Count 154 MPV 12.3 H Immature Gran % (Auto) 0.100 Neut % (Auto) 77.0 H Lymph % (Auto) 10.0 L [place] % (Auto) 8.8 Eos % (Auto) 3.8 Baso % (Auto) 0.3 Absolute Neuts (auto) 5.4 Absolute Lymphs (auto) 0.70 L Total Counted Not Reportable PT INR APTT Sodium 144 Potassium 3.0 L Chloride 105 Carbon Dioxide 30.0 Anion Gap 9 BUN 50 H Creatinine 1.71 H Estim Creat Clear Calc 23.10 Est GFR (MDRD) Af Amer 38 L Est GFR (MDRD) Non-Af 31 L BUN/Creatinine Ratio 29.2 H Glucose 153 H Calcium 8.6 Albumin Urine Color Yellow Urine Clarity Clear Urine pH 6.0 Ur Specific [place] 1.015 Urine Protein 100 H Urine Glucose (UA) Normal Urine Ketones Negative Urine Occult Blood 10 H Urine Nitrite Negative Urine Bilirubin Negative Urine Urobilinogen Normal Ur Leukocyte Esterase Negative Urine RBC 0 SEEN Urine WBC 0 SEEN Ur Squamous Epith Cells 0-5 SEEN Urine Bacteria 0 SEEN Urine Mucus 0 SEEN 02/18/18 02/18/18 02/18/18 04:32 04:32 04:32 WBC RBC Hgb Hct MCV MCH MCHC RDW RDW Differential Plt Count MPV Immature Gran % (Auto) Neut % (Auto) Lymph % (Auto) [place] % (Auto) Eos % (Auto) Baso % (Auto) Absolute Neuts (auto) Absolute Lymphs (auto) Total Counted PT 21.2 H INR 1.8 APTT 47.4 H Sodium Potassium Chloride Carbon Dioxide Anion Gap BUN Creatinine Estim Creat Clear Calc Est GFR (MDRD) Af Amer Est GFR (MDRD) Non-Af BUN/Creatinine Ratio Glucose Calcium Albumin 2.4 L Urine Color Urine Clarity Urine pH Ur Specific [place] Urine Protein Urine Glucose (UA) Urine Ketones Urine Occult Blood Urine Nitrite Urine Bilirubin Urine Urobilinogen Ur Leukocyte Esterase Urine RBC Urine WBC Ur Squamous Epith Cells Urine Bacteria Urine Mucus Medical Necessity - Tobacco Use Smoking Status: Heavy Smoker (>10/day) Tobacco Use: Cigarettes Assessment/Plan All Active Problems (Last Reviewed 11/28/17 @ 13:23 by Priyanka Castano) CHF (congestive heart failure) (Acute) Hemoptysis (Acute) Chronic combined systolic and diastolic CHF (congestive heart failure) (Acute) H/O aortic valve replacement (Resolved) WILLIAN (acute kidney injury) (Resolved) Abnormal cardiac enzyme level (Resolved) Chest pain (Resolved) Dehydration (Resolved) Hypokalemia (Resolved) Renal abscess (Resolved) Sinus bradycardia (Resolved) 1. Acute on chronic intermediate CHF exacerbation - Improved. Cardiology following. Back on lasix drip if BP tolerates it. Not on ricardo or BB. Echo pending. Hx EF 45%. Respiratory panel negative. Still very wheezy. -Repeat Echo with EF 35%, 3+ TVI, 2+ MVI, RVSP 78mmHg -Plan for cath when she is able to lay flat. 2. Hemoptysis - ongoing daily for at least a month. with recent mildly elevated white count, chills at home, hx heavy smoking, breast cancer. Her CXR on friday did not show pna. -Repeat CT shows groundglass, pulmonary edema, atelectasis, mild to moderate right pleural fluid, cardiomegaly, significant aortic calcification -Dark red hemoptysis continues. 3. Hx Mechanical Aortic Valve - unfortunately the patient will need to remain on coumadin. This is also complicated by a hx of GI bleeding earlier this year. May need to consider transition to bioprosthetic valve with ongoing issues. Closely monitor H/H with coumadin therapy. 4. COPD - not acute exacerbation. Continue duonebs. Wheezy likely 2/2 CHF, however if continues may consider steroid trial. 5. DMt2 - SSI, orals held 6. Hx CAD prior CABG 7. CKD III - slight increase in Cr, BUN improved with lasix. 8. HLD - statin 9. Hx CVA - residual right eye blindness. Warfarin/Statin 10. Hx FELICIA with prior stenting 11. Hx Carotid disease with prior CEA. 12. Nicotine abuse - patch if desired. Smoked since teenager. ~1ppd currently. 13. Hx BrCa - in remission s/p mastectomy. 14. Hypothyroid - synthroid 15. Anxiety - continue home meds. DVT ppx: coumadin held for cath. SCDs DC planning: PTOT This patient was seen by South Bhakta PA-C under the supervision of Doctor Radha. <Guilherme Garcia - Last Filed: 02/18/18 14:34> - Physical Exam Vital Signs Temp Pulse Resp BP Pulse Ox 98.3 F 69 16 105/61 97 02/18/18 13:15 02/18/18 13:15 02/18/18 13:15 02/18/18 13:15 02/18/18 13:15 Oxygen Flow Rate (L/min) 1.5 Oxygen Delivery Method Nasal Cannula Weight: 73 kg Body Mass Index (BMI) 30.7 Intake and Output for Last 24 Hours 02/16/18 02/17/18 02/18/18 23:59 23:59 23:59 Intake Total 323.4 / 323.4 1447.8 / 1447.8 395.5 / 395.5 Output Total 1400 / 1400 1950 / 1950 1650 / 1650 Balance -1076.6 / -1076.6 -502.2 / -502.2 -1254.5 / -1254.5 Microbiology Past 72 Hours 02/18/18 10:35 Respiratory Panel (PCR) - Final Mucosa - Nasopharyngeal Laboratory Tests Past 24 Hrs 02/17/18 02/18/18 02/18/18 23:35 04:32 04:32 WBC 7.0 RBC 2.76 L Hgb 9.4 L Hct 29.3 L MCV 106.2 H MCH 34.1 H MCHC 32.1 RDW 13.8 RDW Differential 52.0 H Plt Count 154 MPV 12.3 H Immature Gran % (Auto) 0.100 Neut % (Auto) 77.0 H Lymph % (Auto) 10.0 L [place] % (Auto) 8.8 Eos % (Auto) 3.8 Baso % (Auto) 0.3 Absolute Neuts (auto) 5.4 Absolute Lymphs (auto) 0.70 L Total Counted Not Reportable PT INR APTT Sodium 144 Potassium 3.0 L Chloride 105 Carbon Dioxide 30.0 Anion Gap 9 BUN 50 H Creatinine 1.71 H Estim Creat Clear Calc 23.10 Est GFR (MDRD) Af Amer 38 L Est GFR (MDRD) Non-Af 31 L BUN/Creatinine Ratio 29.2 H Glucose 153 H Calcium 8.6 Albumin Urine Color Yellow Urine Clarity Clear Urine pH 6.0 Ur Specific [place] 1.015 Urine Protein 100 H Urine Glucose (UA) Normal Urine Ketones Negative Urine Occult Blood 10 H Urine Nitrite Negative Urine Bilirubin Negative Urine Urobilinogen Normal Ur Leukocyte Esterase Negative Urine RBC 0 SEEN Urine WBC 0 SEEN Ur Squamous Epith Cells 0-5 SEEN Urine Bacteria 0 SEEN Urine Mucus 0 SEEN 02/18/18 02/18/18 02/18/18 04:32 04:32 04:32 WBC RBC Hgb Hct MCV MCH MCHC RDW RDW Differential Plt Count MPV Immature Gran % (Auto) Neut % (Auto) Lymph % (Auto) [place] % (Auto) Eos % (Auto) Baso % (Auto) Absolute Neuts (auto) Absolute Lymphs (auto) Total Counted PT 21.2 H INR 1.8 APTT 47.4 H Sodium Potassium Chloride Carbon Dioxide Anion Gap BUN Creatinine Estim Creat Clear Calc Est GFR (MDRD) Af Amer Est GFR (MDRD) Non-Af BUN/Creatinine Ratio Glucose Calcium Albumin 2.4 L Urine Color Urine Clarity Urine pH Ur Specific [place] Urine Protein Urine Glucose (UA) Urine Ketones Urine Occult Blood Urine Nitrite Urine Bilirubin Urine Urobilinogen Ur Leukocyte Esterase Urine RBC Urine WBC Ur Squamous Epith Cells Urine Bacteria Urine Mucus Assessment/Plan This patient was seen in conjunction with South Bhakta PA-C. I have independently interviewed and examined the patient and reviewed pertinent historical, laboratory, and other data. Please refer to South Bhakta PA-C note for details of this patient's presentation, findings, and recommendations. I have reviewed South Bhakta PA-C note and concur with documented findings. In brief, 72-year-old lady with multiple comorbidities including mechanical aortic valve on systemic anticoagulation with Coumadin who presented with shortness of breath as well as hemoptysis and assessment of acute on chronic congestive heart failure made admitted to a monitored bed for further management 02/18/18: Plan for patient to undergo left heart catheterization placed on hold in view of patient being on unable to lay flat on the table. Still remains on Lasix. -Patient's 2D echo demonstrated ejection fraction of 35% with 3+ dry cuspid valve regurgitation, 2+ mitral valve regurgitation and RVSP of 78 mmHg Physical Examination: GENERAL: cooperative HEENT: Atraumatic; EYES; Anicteric, Normal Conjunctiva NECK; supple, normal thyroid, RESPIRATORY: Diminished to auscultation bilaterally, CARDIOVASCULAR: Regular S1 S2, systolic click GI: soft, non-tender, normoactive bowel sounds, : No Renal angle tenderness; No boothe EXTREMITIES: 2+ pitting edema PSYCH; Normal affect Assessment: 1. Acute diastolic congestive heart failure EF 50% 2. Hemoptysis in the context of systemic anticoagulation use 3. Status post mechanical aortic valve replacement 4. CAD with previous CABG 5. Diabetes mellitus type 2 with complications including diabetic nephropathy 6. Chronic kidney disease stage III secondary to diabetic nephropathy 7. COPD not in exacerbation 8. Dyslipidemia 9. History of CVA with residual right-sided blindness 10. History of renal atrophy stenosis with subsequent stent placement 11. Carotid artery disease status post carotid endarterectomy 12. Hypothyroidism 13. History of breast CA status post mastectomy has since remained in remission 14. Anxiety disorder 15. Tobacco dependence 16. DVT prophylaxis 17. Valvular heart disease including tricuspid and mitral valve regurgitation 18. Pulmonary hypertension with RSV P of 78mmHg Recommendations: 1. I have discussed the results of my overview and impressions with the patient 2. Options for management were reviewed Code Visit Inpatient E&M: 42179 Disch Hosp
--- NOTE | 2018-02-18 15:36 | CASEMGMT ---
According to [employer] [facility] website, the following are in-network tertiary facilities: [facility], [place], [facility], [facility], [facility], [facility], [place], [facility], and . Bhargavi CHENEY CM
[2018-02-18] MEDS: Furosemide 500 MG in Empty Viaflex 50 mL 1 EACH CONT INF (17:13)
[2018-02-18 17:58] LABS: Partial Thromboplast Time 89.2 Seconds (24.1-36.2)
[2018-02-18] MEDS: Atorvastatin Calcium 40 MG Tablet PO (21:04)
[2018-02-18] MEDS: Sertraline 100 MG Tablet PO (21:04)
[2018-02-19] VITALS (24 sets, daily range): BP systolic 87–130; BP diastolic 42–61; PULSE 54–71; RESP 16–23; TEMP 36.6–36.8; O2SAT 94–100
[2018-02-19 00:38] LABS: Partial Thromboplast Time 71.6 Seconds (24.1-36.2)
[2018-02-19] MEDS: 0.9% NaCl Peripheral Flush Adult/Peds IV ×4 (05:36→23:22)
[2018-02-19] MEDS: Levothyroxine 75 MCG Tablet PO (05:36)
--- NOTE | 2018-02-19 05:55 | EKG12_ITS ---
Test Reason : AM EKG Blood Pressure : / mmHG Vent. Rate : 061 BPM Atrial Rate : 061 BPM P-R Int : 192 ms QRS Dur : 104 ms QT Int : 456 ms P-R-T Axes : 110 -28 167 degrees QTc Int : 459 ms Normal sinus rhythm Left ventricular hypertrophy with repolarization abnormality Abnormal ECG When compared with ECG of 06-MAY-2017 14:21, T wave inversion no longer evident in Anterior leads Confirmed by DEL SAUCEDO, LISSA ([id number]), assignment editor NIKKI ESPINAL ([id number]) on 02/23/2018 4:04:09 PM Referred By: Odilon Anderson Confirmed By:LISSA MATHIS MD
[2018-02-19] MEDS: Ipratropium/Albuterol Sulfate 3 ML AMPUL.NEB INHALATION ×4 (06:46→23:39)
[2018-02-19 06:49] LABS: International Normalized Ratio 1.4; Prothrombin Time (Protime)PT. 16.8 SECONDS (11.7-14.9)
[2018-02-19 06:51] LABS: Partial Thromboplast Time 74.7 Seconds (24.1-36.2)
[2018-02-19 06:56] LABS: Absolute Lymphocyte Count 0.32 X10^3/ul (0.83-4.51); Absolute Neutrophil Count 5.3 X10^3/uL (2.0-7.7); Hematocrit 29.1 % (37-47); Hemoglobin 9.3 g/dl (12.0-15.0); Lymphocyte # 0.32 X10^3/ul (4.0); Lymphocyte % 5.4 % (19-41); Mean Corpuscular Hgb 33.3 pg (27.0-32.0); Mean Corpuscular Volume 104.3 fL (81-99); Mean Platelet Vol. 12.7 fl (6.2-12.0); Monocyte# 0.24 X10^3/uL; Monocyte% 4.1 % (0-10); Neutrophil # 5.33 X10^3/uL (2.7-7.7); Neutrophil % 90.3 % (47-70); Platelet Count 153 K/mm3 (150-450); RBC Distribution Width CV 13.2 % (11.6-14.6); RBC Distribution Width SD 48.8 fl (35.1-43.9); Red Blood Count 2.79 M/mm3 (4.2-5.4); White Blood Count 5.9 K/mm3 (4.4-11.0)
[2018-02-19 06:57] LABS: Differential Indicated SCAN CRITERIA MET; POSITIVE COUNT NO; POSITIVE DIFFERENTIAL YES; POSITIVE MORPHOLOGY NO
[2018-02-19 07:08] LABS: Anion Gap 10 (5-15); BUN 59 mg/dL (7-18); BUN/Creat Ratio 28.8 RATIO (10-20); Calcium,Total 8.7 mg/dL (8.5-10.1); Chloride 101 mmol/L (98-107); Creatinine, Serum 2.05 mg/dL (0.55-1.02); EST Glomerular Filtration Rate 25 mL/min (>60); Est Glom Filt Rate - Afr Amer 31 mL/min (>60); Estimated Creatinine Clearance 19.27 ml/min; Glucose 451 mg/dL (74-106); Potassium 3.8 mmol/L (3.5-5.1); Sodium Level 138 mmol/L (136-145)
--- NOTE | 2018-02-19 07:11 | PN_ITS ---
Patient Problems: Active and Suspected Problems (Last Reviewed 11/28/17 @ 13:23 by Priyanka Castano) CHF (congestive heart failure) (Acute) Hemoptysis (Acute) Subjective: The patient was seen and examined at the bedside this morning. Events from the last 24 hours have been reviewed. The patient is currently afebrile, hemodynamically stable and maintaining appropriate oxygen saturations on 1 L/min via nasal cannula. Creatinine is increased this morning to 2.05. Glucose is also significantly elevated to 451. The patient is currently overall net -3.1 L for the admission. The patient was actually laying completely flat sleeping upon my entry into her room this morning. She reports that her breathing quality and subjective dyspnea has improved over the last 24 hours. Her cough quality has similarly improved. Objective: The patient's most recent lab work, culture data and imaging studies have all been personally reviewed. Respiratory viral panel was negative. CT chest revealed bilateral groundglass opacities. Surface echocardiogram revealed moderate segmental systolic dysfunction with an ejection fraction of 35%. Right ventricular systolic pressure was estimated to be 78 mmHg. - Physical Exam General: Alert, Cooperative, No apparent distress HEENT: Atraumatic, PERRLA, Normocephalic Oral: No Gingival or Mucosal Lesions/ Ulcerations Neck: Supple, No Nodes, Trachea Midline Lungs: - - Improved air movement bilaterally with faint end expiratory wheezing Cardiovascular: Regular rate, Regular Rhythm, Normal S1, Normal S2, Murmur Abdomen: Bowel Sounds Present, Soft, Non Tender Extremities: No clubbing, No cyanosis, - - Improving lower extremity edema Skin: No breakdown Musculoskeletal: No Tenderness to Palpation of Joints or Extremities Lymphatic: No Cervical, Supraclavicular, or Inguinal Adenopathy Neurological: Neuro grossly intact Psych/Mental Status: Alert and oriented to time, place, person, mood and affect Vital Signs Temp Pulse Resp BP Pulse Ox 97.9 F 68 18 130/61 H 94 02/19/18 03:45 02/19/18 03:45 02/19/18 03:45 02/19/18 03:45 02/19/18 03:45 Oxygen Flow Rate (L/min) 1 Oxygen Delivery Method Nasal Cannula Weight: 165 lb 12.602 oz Body Mass Index (BMI) 30.7 Intake and Output for Last 24 Hours 10/09/18 10/10/18 10/11/18 23:59 23:59 23:59 Intake Total 1447.8 / 1447.8 717.5 / 717.5 475.0 / 475.0 Output Total 1949 / 1949 2049 / 2049 700 / 700 Balance -502.2 / -502.2 -1332.5 / -1332.5 -225.0 / -225.0 Microbiology Past 72 Hours 02/18/18 10:35 Respiratory Panel (PCR) - Final Mucosa - Nasopharyngeal Laboratory Tests Past 24 Hrs 02/18/18 02/18/18 02/19/18 04:32 17:01 00:12 WBC RBC Hgb Hct MCV MCH MCHC RDW RDW Differential Plt Count MPV Immature Gran % (Auto) Neut % (Auto) Lymph % (Auto) [place] % (Auto) Eos % (Auto) Baso % (Auto) Absolute Neuts (auto) Absolute Lymphs (auto) Total Counted PT INR APTT 89.2 H 71.6 H Sodium Potassium Chloride Carbon Dioxide Anion Gap BUN Creatinine Estim Creat Clear Calc Est GFR (MDRD) Af Amer Est GFR (MDRD) Non-Af BUN/Creatinine Ratio Glucose Calcium Albumin 2.4 L 02/19/18 02/19/18 02/19/18 06:00 06:00 06:00 WBC 5.9 RBC 2.79 L Hgb 9.3 L Hct 29.1 L MCV 104.3 H MCH 33.3 H MCHC 32.0 RDW 13.2 RDW Differential 48.8 H Plt Count 153 MPV 12.7 H Immature Gran % (Auto) 0.200 Neut % (Auto) 90.3 H Lymph % (Auto) 5.4 L [place] % (Auto) 4.1 Eos % (Auto) 0.0 Baso % (Auto) 0.0 Absolute Neuts (auto) 5.3 Absolute Lymphs (auto) 0.32 L Total Counted Pending PT 16.8 H INR 1.4 APTT 74.7 H Sodium 138 Potassium 3.8 Chloride 101 Carbon Dioxide 27.0 Anion Gap 10 BUN 59 H Creatinine 2.05 H Estim Creat Clear Calc 19.27 Est GFR (MDRD) Af Amer 31 L Est GFR (MDRD) Non-Af 25 L BUN/Creatinine Ratio 28.8 H Glucose 451 H* Calcium 8.7 Albumin Clinical Impression(s) from Imaging Studies Chest X-Ray 02/16/18 16:12 IMPRESSION: There is moderate enlargement of the cardiac silhouette with vascular congestion. There is no obvious effusion. There is stable COPD with mild diffuse fibrosis. Electronically Signed: Karli Mancilla MD at 17:12 EDT Tel Direct: [phone], Service support , Chest CT 02/17/18 08:38 IMPRESSION: 1. Diffuse interlobular septal thickening with groundglass opacities in both lungs. They are suggestive of hydrostatic pulmonary edema. 2. Focal atelectases in the right posterior lung base and mild to moderate right posterior pleural fluid. 3. Cardiomegaly with aortic valve prosthesis. 4. Dense vascular calcifications of the thoracic aorta and all its branches. Electronically Signed: Lukasz Shelley MD at 10:40 EDT , Service support , Clinical Impression(s) from Imaging Studies Chest X-Ray 02/16/18 16:12 IMPRESSION: There is moderate enlargement of the cardiac silhouette with vascular congestion. There is no obvious effusion. There is stable COPD with mild diffuse fibrosis. Electronically Signed: Karli Mancilla MD at 17:12 EDT Tel Direct: [phone], Service support , Chest CT 02/17/18 08:38 IMPRESSION: 1. Diffuse interlobular septal thickening with groundglass opacities in both lungs. They are suggestive of hydrostatic pulmonary edema. 2. Focal atelectases in the right posterior lung base and mild to moderate right posterior pleural fluid. 3. Cardiomegaly with aortic valve prosthesis. 4. Dense vascular calcifications of the thoracic aorta and all its branches. Electronically Signed: Lukasz Shelley MD at 10:40 EDT , Service support , Medical Necessity - Tobacco Use Smoking Status: Heavy Smoker (>10/day) Tobacco Use: Cigarettes Assessment/Plan All Active Problems (Last Reviewed 11/28/17 @ 13:23 by Priyanka Castano) CHF (congestive heart failure) (Acute) Hemoptysis (Acute) Chronic combined systolic and diastolic CHF (congestive heart failure) (Acute) H/O aortic valve replacement (Resolved) WILLIAN (acute kidney injury) (Resolved) Abnormal cardiac enzyme level (Resolved) Chest pain (Resolved) Dehydration (Resolved) Hypokalemia (Resolved) Renal abscess (Resolved) Sinus bradycardia (Resolved) RECOMMENDATIONS: 1. Continue diuretic regimen per cardiology recommendations. 2. Continue scheduled bronchodilators and IV steroids for now. Will transition to prednisone beginning tomorrow. 3. Wean supplemental oxygen to maintain saturations 88-92%. 4. Smoking cessation is strongly advisable. 5. It is highly recommended that the patient follow-up in the pulmonary medicine clinic so that baseline pulmonary function testing can be completed. In addition, she is currently on a suboptimal inhaler regimen. IMPRESSIONS: 1. Intermittent hemoptysis Unclear if the patient's intermittent hemoptysis is related to her fluctuating INR levels, coupled with her underlying presumptive obstructive lung disease. She does report having an abnormal chest CT completed a month ago at [facility]. However, I was not able to find any CT chest reports from the documentation that was forwarded to our hospital from [place]. Regardless, a repeat CT chest obtained here only revealed evidence of groundglass changes bilaterally, most likely consistent with her known decompensated heart failure. Her Coumadin is currently on hold and she remains on a heparin drip accordingly. Her hemoptysis has also resolved at this time. No additional workup is indicated at this time. However, I would strongly suggest that the patient follow-up with us in the pulmonary medicine clinic upon her discharge from the hospital. 2. Acute hypoxemic respiratory insufficiency, likely secondary to decompensated systolic heart failure coupled with underlying pulmonary hypertension Cardiology is currently following. The patient has been volume optimized at this time and is able to lay flat. I anticipate that the patient will likely be taken for cardiac catheterization at some point during her hospitalization. Continue to wean supplemental oxygen to maintain saturations 88-92%. Encourage incentive spirometer use and mobilize patient as tolerated. At her baseline, the patient does not report having a supplemental oxygen requirement. 3. Presumptive COPD of unknown severity It is highly advisable that the patient follow-up in the pulmonary medicine clinic so that baseline PFTs can be completed. She reports that she is currently prescribed Asmanex and as needed albuterol in her home environment. If the patient does have straightforward obstructive lung disease, this inhaler regimen is significantly suboptimal for her lung disease. While I cannot discount that her underlying obstructive lung disease is contributing to her shortness of breath, she has improved symptomatically following volume optimization and the initiation of scheduled bronchodilators. In addition, she was placed on IV steroids yesterday due to the degree of wheezing noted on examination. This has also improved this morning. Would recommend continuing IV steroids yet today with plans to transition to prednisone for a 5-day burst beginning tomorrow. 4. Ongoing tobacco dependency Smoking cessation is strongly advised. Nicotine replacement therapy can be offered while she is admitted to the hospital. 5. Acute on chronic CHF exacerbation Continue current medical management and diuretic therapy per cardiology recommendations. 6. Diabetes/chronic kidney disease/hyperlipidemia/mechanical aortic valve in situ Complicates care, management, recovery and prognosis. Continue heparin drip as ordered. This note was generated with [employer] dictation software. It may contain incorrect words, spelling, and punctuation that were not noted in checking the note before signing. Code Visit Inpatient E&M: 09327 Subs Hosp L2
[2018-02-19 07:16] LABS: Bedside Glucose 438 mg/dL (70-110)
[2018-02-19] MEDS: NYSTATIN 500,000 UNIT/5 ML UDC 500000 UNIT PO ×2 (09:41→22:21)
[2018-02-19] MEDS: Aspirin E.C. 325 MG Tablet PO (09:41)
[2018-02-19] MEDS: Insulin Lispro 100 UNIT/ML INSULN.PEN SC ×4 (09:44→22:20)
[2018-02-19] MEDS: Clopidogrel Bisulfate 300 MG Tablet PO (09:50)
[2018-02-19 11:30] LABS: Bedside Glucose 396 mg/dL (70-110)
--- NOTE | 2018-02-19 11:38 | PCM.PROGNOTE ---
<Aditi Bethea - Last Filed: 02/19/18 11:59> Patient Problems: Active and Suspected Problems (Last Reviewed 11/28/17 @ 13:23 by Priyanka Castano) CHF (congestive heart failure) (Acute) Hemoptysis (Acute) Subjective: Patient seen and examined. Resting in bed in no acute distress. Plan for cardiac catheterization later today. States shortness of breath is slightly improved. Laying flat on right side without dyspnea. - Physical Exam General: Alert, Oriented x3, Cooperative, No apparent distress HEENT: Atraumatic, PERRLA, EOMI, Normocephalic Neck: Supple, No JVD, Negative Carotid Bruits Lungs: Diminished, Wheezes Cardiovascular: Regular rate, Regular Rhythm, Normal S1, Normal S2, Murmur Abdomen: Bowel Sounds Present, Soft, Non Tender, Non-Distended Extremities: No clubbing, No cyanosis, Edema - +2-3 bilateral extremities Skin: No rashes, No breakdown Musculoskeletal: No Tenderness to Palpation of Joints or Extremities Neurological: Cranial nerves II-XII grossly intact, Neuro grossly intact Psych/Mental Status: Normal Affect, Appropriate Vital Signs Temp Pulse Resp BP Pulse Ox 97.8 F 69 16 130/56 H 98 02/19/18 09:45 02/19/18 11:11 02/19/18 10:54 02/19/18 09:45 02/19/18 09:45 Oxygen Flow Rate (L/min) 1 Oxygen Delivery Method Nasal Cannula Weight: 165 lb 12.602 oz Body Mass Index (BMI) 30.7 Intake and Output for Last 24 Hours 02/17/18 02/18/18 02/19/18 23:59 23:59 23:59 Intake Total 1447.8 / 1447.8 717.5 / 717.5 475.0 / 475.0 Output Total 1950 / 1950 2049 / 2049 700 / 700 Balance -502.2 / -502.2 -1332.5 / -1332.5 -225.0 / -225.0 Microbiology Past 72 Hours 02/18/18 10:35 Respiratory Panel (PCR) - Final Mucosa - Nasopharyngeal Laboratory Tests Past 24 Hrs 02/18/18 02/19/18 02/19/18 17:01 00:12 06:00 WBC RBC Hgb Hct MCV MCH MCHC RDW RDW Differential Plt Count MPV Immature Gran % (Auto) Neut % (Auto) Lymph % (Auto) [place] % (Auto) Eos % (Auto) Baso % (Auto) Absolute Neuts (auto) Absolute Lymphs (auto) Total Counted Differential Comment PT INR APTT 89.2 H 71.6 H Sodium 138 Potassium 3.8 Chloride 101 Carbon Dioxide 27.0 Anion Gap 10 BUN 59 H Creatinine 2.05 H Estim Creat Clear Calc 19.27 Est GFR (MDRD) Af Amer 31 L Est GFR (MDRD) Non-Af 25 L BUN/Creatinine Ratio 28.8 H Glucose 451 H* Calcium 8.7 02/19/18 02/19/18 06:00 06:00 WBC 5.9 RBC 2.79 L Hgb 9.3 L Hct 29.1 L MCV 104.3 H MCH 33.3 H MCHC 32.0 RDW 13.2 RDW Differential 48.8 H Plt Count 153 MPV 12.7 H Immature Gran % (Auto) 0.200 Neut % (Auto) 90.3 H Lymph % (Auto) 5.4 L [place] % (Auto) 4.1 Eos % (Auto) 0.0 Baso % (Auto) 0.0 Absolute Neuts (auto) 5.3 Absolute Lymphs (auto) 0.32 L Total Counted Not Reportable Differential Comment COMMENT PT 16.8 H INR 1.4 APTT 74.7 H Sodium Potassium Chloride Carbon Dioxide Anion Gap BUN Creatinine Estim Creat Clear Calc Est GFR (MDRD) Af Amer Est GFR (MDRD) Non-Af BUN/Creatinine Ratio Glucose Calcium POC Glucose 02/19/18 02/19/18 11:24 07:13 POC Glucose 396 H 438 H Medical Necessity - Tobacco Use Smoking Status: Heavy Smoker (>10/day) Tobacco Use: Cigarettes Assessment/Plan All Active Problems (Last Reviewed 11/28/17 @ 13:23 by Priyanka Castano) CHF (congestive heart failure) (Acute) Hemoptysis (Acute) Chronic combined systolic and diastolic CHF (congestive heart failure) (Acute) H/O aortic valve replacement (Resolved) WILLIAN (acute kidney injury) (Resolved) Abnormal cardiac enzyme level (Resolved) Chest pain (Resolved) Dehydration (Resolved) Hypokalemia (Resolved) Renal abscess (Resolved) Sinus bradycardia (Resolved) 1. Acute on chronic systolic CHF-cardiology following. Continue Lasix drip. Echocardiogram shows an EF of 35%, moderate mitral valve insufficiency, moderate to severe tricuspid valve insufficiency, stable appearing mechanical aortic valve, mild pulmonic valve insufficiency, RVSP estimated E 78 mmHg. Strict I&O. Daily weight. Patient undergo cardiac catheterization this afternoon. 2. Presumed COPD exacerbation-no prior formal testing. Patient will require PFTs as outpatient with pulmonary medicine. Continue IV Solu-Medrol. Transition to prednisone 40 mg x 5 days tomorrow. Albuterol and DuoNeb aerosols. 3. Acute hypoxic respiratory insufficiency secondary to #1/#2. Wean oxygen as tolerated to maintain O2 88-92%. 4. Hemoptysis, intermittent-pulmonary medicine consulted. Obtain CT chest. No further hemoptysis during admission. Coumadin on hold. Outpatient follow-up with pulmonary medicine. 4. Acute kidney injury on chronic kidney disease stage III- WILLIAN secondary to diuretic regimen. Trend BMP. History of renal artery stenosis status post stent. 5. CAD status post CABG- continue statin. Not on BB. 6. History of CVA-residual right eye blindness. Continue statin. Coumadin on hold. 7. History of carotid artery disease status post CEA 8. Chronic macrocytic anemia-at baseline. 9. Type 2 diabetes mellitus-home oral regimen on hold. Accu-Cheks before meals at bedtime with sliding scale insulin. Lantus 15 units twice daily. Hemoglobin A1c 11/25/16 8.2%. 10. Status post mechanical aortic valve replacement-on chronic anticoagulation with Coumadin. GI bleed earlier this year. 11. Hyperlipidemia-continue statin. 12. Hypothyroidism-continue Synthroid regimen. 13. Gout- Continue allopurinol. 14. Depression/anxiety-continue home sertraline regimen. 15. History of breast cancer status post mastectomy 16. Tobacco dependence-encourage smoking cessation, nicotine replacement patch if desired. DVT prophylaxis-heparin drip. Coumadin on hold. This patient was seen by SILAS Kyle under the supervision of Dr. Garcia. <Guilherme Garcia - Last Filed: 02/19/18 13:21> - Physical Exam Vital Signs Temp Pulse Resp BP Pulse Ox 97.8 F 69 16 130/56 H 98 02/19/18 09:45 02/19/18 11:11 02/19/18 10:54 02/19/18 09:45 02/19/18 09:45 Oxygen Flow Rate (L/min) 1 Oxygen Delivery Method Nasal Cannula Weight: 75.2 kg Body Mass Index (BMI) 30.7 Intake and Output for Last 24 Hours 02/17/18 02/18/18 02/19/18 23:59 23:59 23:59 Intake Total 1447.8 / 1447.8 717.5 / 717.5 475.0 / 475.0 Output Total 1949 / 1949 2049 / 2049 700 / 700 Balance -502.2 / -502.2 -1332.5 / -1332.5 -225.0 / -225.0 Microbiology Past 72 Hours 02/18/18 10:35 Respiratory Panel (PCR) - Final Mucosa - Nasopharyngeal Laboratory Tests Past 24 Hrs 02/18/18 02/19/18 02/19/18 17:01 00:12 06:00 WBC RBC Hgb Hct MCV MCH MCHC RDW RDW Differential Plt Count MPV Immature Gran % (Auto) Neut % (Auto) Lymph % (Auto) [place] % (Auto) Eos % (Auto) Baso % (Auto) Absolute Neuts (auto) Absolute Lymphs (auto) Total Counted Differential Comment PT INR APTT 89.2 H 71.6 H Sodium 138 Potassium 3.8 Chloride 101 Carbon Dioxide 27.0 Anion Gap 10 BUN 59 H Creatinine 2.05 H Estim Creat Clear Calc 19.27 Est GFR (MDRD) Af Amer 31 L Est GFR (MDRD) Non-Af 25 L BUN/Creatinine Ratio 28.8 H Glucose 451 H* Calcium 8.7 02/19/18 02/19/18 02/19/18 06:00 06:00 12:26 WBC 5.9 RBC 2.79 L Hgb 9.3 L Hct 29.1 L MCV 104.3 H MCH 33.3 H MCHC 32.0 RDW 13.2 RDW Differential 48.8 H Plt Count 153 MPV 12.7 H Immature Gran % (Auto) 0.200 Neut % (Auto) 90.3 H Lymph % (Auto) 5.4 L [place] % (Auto) 4.1 Eos % (Auto) 0.0 Baso % (Auto) 0.0 Absolute Neuts (auto) 5.3 Absolute Lymphs (auto) 0.32 L Total Counted Not Reportable Differential Comment COMMENT PT 16.8 H INR 1.4 APTT 74.7 H 33.0 Sodium Potassium Chloride Carbon Dioxide Anion Gap BUN Creatinine Estim Creat Clear Calc Est GFR (MDRD) Af Amer Est GFR (MDRD) Non-Af BUN/Creatinine Ratio Glucose Calcium POC Glucose 02/19/18 02/19/18 11:24 07:13 POC Glucose 396 H 438 H Assessment/Plan This patient was seen in conjunction with SILAS Kyle. I have independently interviewed and examined the patient and reviewed pertinent historical, laboratory, and other data. Please refer to SILAS Kyle note for details of this patient's presentation, findings, and recommendations. I have reviewed SIALS Kyle note and concur with documented findings. In brief, 72-year-old lady with multiple comorbidities including mechanical aortic valve on systemic anticoagulation with Coumadin who presented with shortness of breath as well as hemoptysis and assessment of acute on chronic congestive heart failure made admitted to a monitored bed for further management 02/18/18: Plan for patient to undergo left heart catheterization placed on hold in view of patient being on unable to lay flat on the table. Still remains on Lasix. -Patient's 2D echo demonstrated ejection fraction of 35% with 3+ dry cuspid valve regurgitation, 2+ mitral valve regurgitation and RVSP of 78 mmHg 02/19/2018: Patient scheduled to undergo left heart catheterization Physical Examination: GENERAL: cooperative HEENT: Atraumatic; EYES; Anicteric, Normal Conjunctiva NECK; supple, normal thyroid, RESPIRATORY: Diminished to auscultation bilaterally, CARDIOVASCULAR: Regular S1 S2, systolic click GI: soft, non-tender, normoactive bowel sounds, : No Renal angle tenderness; No boothe EXTREMITIES: 2+ pitting edema PSYCH; Normal affect Assessment: 1. Acute diastolic congestive heart failure EF 50% 2. Hemoptysis in the context of systemic anticoagulation use 3. Status post mechanical aortic valve replacement 4. CAD with previous CABG 5. Diabetes mellitus type 2 with complications including diabetic nephropathy 6. Chronic kidney disease stage III secondary to diabetic nephropathy 7. COPD not in exacerbation 8. Dyslipidemia 9. History of CVA with residual right-sided blindness 10. History of renal atrophy stenosis with subsequent stent placement 11. Carotid artery disease status post carotid endarterectomy 12. Hypothyroidism 13. History of breast CA status post mastectomy has since remained in remission 14. Anxiety disorder 15. Tobacco dependence 16. DVT prophylaxis 17. Valvular heart disease including tricuspid and mitral valve regurgitation 18. Pulmonary hypertension with RSV P of 78mmHg Recommendations: 1. I have discussed the results of my overview and impressions with the patient 2. Options for management were reviewed Code Visit Inpatient E&M: 84473 Subs Hosp L3
[2018-02-19 15:41] LABS: Blood Gas Specimen Type VEN; VBG BASE EXCESS 2 mmol/L (-1.0-3.5); VBG Bicarbonate 27 mmol/L (22-26); VBG Oxygen Content 28 mmol/L (23-33); VBG PO2 32 mmHg (25-40); VBG SO2 62 % (50-70); VBG pCO2 42.3 mmHg (41-51); VBG pH 7.41 (7.32-7.42)
[2018-02-19 15:41] LABS: Base Excess 2 mmol/L (-2 to +2); Bicarbonate 26.5 mmol/L (22-26); Blood Gas Specimen Type ART; PO2 54 mmHG (75-100); SO2 89 % (95-99); Total Carbon Dioxide 28 mmol/L; pCO2 38.8 mmHg (35-45); pH 7.44 (7.35-7.45)
[2018-02-19 15:41] LABS: Blood Gas Specimen Type VEN; VBG BASE EXCESS 4 mmol/L (-1.0-3.5); VBG Bicarbonate 29 mmol/L (22-26); VBG Oxygen Content 30 mmol/L (23-33); VBG PO2 31 mmHg (25-40); VBG SO2 60 % (50-70); VBG pCO2 45.1 mmHg (41-51); VBG pH 7.42 (7.32-7.42)
[2018-02-19 15:41] LABS: Blood Gas Specimen Type VEN; VBG BASE EXCESS 5 mmol/L (-1.0-3.5); VBG Bicarbonate 29 mmol/L (22-26); VBG Oxygen Content 31 mmol/L (23-33); VBG PO2 28 mmHg (25-40); VBG SO2 54 % (50-70); VBG pCO2 44.1 mmHg (41-51); VBG pH 7.43 (7.32-7.42)
[2018-02-19 16:26] LABS: Bedside Glucose 252 mg/dL (70-110)
--- NOTE | 2018-02-19 19:50 | CL.D_ITS ---
Patient Name: DIANNA BUTLER Study Date: 02/19/2018 Performing: John Medina MD Ht: 61 inches 155 cm : 1945 Wt: 165.6 lbs 75 kg Age: 72 Gender: female BSA: 1.74 PROCEDURE(S) PERFORMED [id number]/LHC/COR/CABG [id number]-[id number] ROOT ANGIO WITH HEART CATH CLINICAL PROFILE AND INDICATIONS Indications: Suspected CAD, Valvular Disease, Cardiomyopathy, LV Dysfunction Heart Failure: NYHA Class: 4, Newly Diagnosed: No, Heart Failure Type: Systolic Stress/Imaging Stress/Image Study Performed: No Angina Classification Anginal Classification w/in 2 Weeks: CCS IV CAD Presentations: Other: shortness of breath CONCLUSIONS Right heart pressures - severely elevated The patient has pulmonary hypertension which is severe. Intracardiac shunting: None [place] Multivessel CAD MOLINA to LAD: patent SVG to OM: patent SVG to RCA / RV marginal branch: patent Aortic Valve: stable appearing mechanical aortic valve apparatus RECOMMENDATIONS Risk factor modification Medical therapy DESCRIPTION OF PROCEDURE The patient arrived to the procedure lab. The risks and benefits of the procedure as well as a full d escription of our services here and current unavailability of surgical backup were fully explained to the patient and/or their significant other prior to the catheterization. The Timeout was completed, verifying the correct patient and procedure. The patient's procedural site was prepped and draped in the usual fashion. Local anesthetic was given subcutaneously to right groin region with Lidocaine 2%. Using a modified Seldinger technique, arterial access was obtained via the right femoral artery, a 4 Fr sheath was inserted Venous access was obtained via the right femoral vein, a 7Fr sheath was insert ed. A 7Fr thermal dilution catheter was inserted and right heart pressures were recorded, it was then advanced to PA position for cardiac outputs. O2 saturations were then obtained. Thermal dilution car diac outputs were then recorded. Left Coronary Artery selective angiography was performed in multiple views using a 4 Fr. JL5 catheter. The Thermal dilution catheter was then removed. Right Coronary Art dhara selective angiography was then performed in multiple views using a 4 Fr. JR4 catheter. Saphenous Vein graft to the OM 1 selective angiography was performed in multiple views using a 4 Fr. JR4 cathet er. Left internal mammary artery graft to the LAD selective angiography was performed in multiple vie ws using a 4 Fr. JR4 catheter. Ascending (root) aorta selective angiography was then performed in sin gle view. Ascending (root) aorta selective angiography was then performed in single view. Saphenous V ein graft to the AM 1 selective angiography was performed in multiple views using a 4 Fr. RCB cathete r.The arterial sheath was pulled and manual compression applied until hemostasis is achieved.. The ve nous sheath was then pulled and manual compression applied until hemostasis achieved CORONARY ANGIOGRAPHY DOMINANCE: Left Dominant LEFT HEART ASSESSMENT Left Ventricular Ejection Fraction: Not assessed RIGHT HEART ASSESSMENT Thermal CO: 4.74 Thermal CI: 2.72 PW: 29 PA: 55/26 37 RV: 67/5 20 RA: 15 PVR: 135 SVR: 1738 Right Heart pressures - elevated Pulmonary Hypertension Severe Intracardiac shunting: None LEFT MAIN: Angiographically normal LEFT ANTERIOR DECENDING ARTERY: PROX LAD: Eccentric: 25 - 50 % Stenosis MID LAD: is occluded s/p DX, Fills from the MOLINA graft with no angiographically significant appearing disease distal to the graft attachment DIAGONAL 1: Mid - Long: Diffuse: 25 % Stenosis CIRCUMFLEX ARTERY: OSTIAL CIRC: Moderate calcification, Eccentric: 25 - 50 % Stenosis MID CIRC: Mild calcification RIGHT CORONARY ARTERY: OSTIAL RCA: 50 % Stenosis GRAFTS: MOLINA graft to the Mid LAD is patent Saphenous Vein graft to the 1st OM is patent Saphenous Vein graft to the RCA / RV marginal branch is patent ostial / proximal 25 % stenosis VALVE FINDINGS: Stable appearing mechanical aortic valve apparatus stable appearing mechanical aortic valve apparatus AORTIC ROOT: Calcified COMPLICATIONS No Complications PROCEDURE MEDICATIONS Versed 1 mg IV Oxygen: 2 L/min via nasal cannula Labetalol 10 mg 02/19/2018 13:59:04 SUMMARY OF HEMODYNAMIC DATA Time AIR REST ECG 12:55:06 RA (15) SV 13:16:20 RV 67/5, 20 13:16:35 PW /39 (29) PV 13:19:40 PA 55/26 (37) PA 13:20:02 AO 209/67 (118) SA 13:25:54 Type SV CO (l/m) CI (l/m/ HR Time AIR REST Thermal 75.20 4.74 2.72 63 12:55:06 Label % O2 Pres/Loc Time AIR REST IVC 62 SV 13:28:06 SVC 60 13:28:10 PA June PA 13:28:14 Signed By John Medina MD On 02/19/2018 19:50:32 John Medina MD
--- NOTE | 2018-02-19 20:23 | PN.CARD_ITS ---
Subjectve: The patient underwent diagnostic cardiac catheterization earlier this day. She did not appear to have any obvious adverse event. Objective: Vital Signs Temp Pulse Resp BP Pulse Ox 98.1 F 71 23 H 114/55 L 97 02/19/18 19:38 02/19/18 19:38 02/19/18 19:38 02/19/18 19:38 02/19/18 19:38 Oxygen Flow Rate (L/min) 1 Oxygen Delivery Method Nasal Cannula Weight: 165 lb 12.602 oz Body Mass Index (BMI) 30.7 Intake and Output for Last 24 Hours 02/17/18 02/18/18 02/19/18 23:59 23:59 23:59 Intake Total 1447.8 / 1447.8 717.5 / 717.5 715.0 / 715.0 Output Total 1949 / 1949 2049 / 2049 700 / 700 Balance -502.2 / -502.2 -1332.5 / -1332.5 15.0 / 15.0 General: Awake, Alert, Oriented x 3, Cooperative, No Acute Distress HEENT: Atraumatic, Normocephalic, PERRL, EOMI Oral: Moist Mucosa Neck: No JVD Lungs: Rhonchi - Scattered, Inspiratory Wheezes - [place] Cardiovascular: Regular Rhythm, Premature Ectopic Beats, Normal S1, [place] Pros thetic S2 Vascular: Normal Femoral Pulses Abdomen: Bowel Sounds Present, Soft, Non Tender Extremities: Moderate RLE Edema, Moderate LLE Edema - Somewhat less prominent compared to the previous examination Neurological: No Focal Motor or Sensory Deficit Psych/Mental Status: Appropriate, Normal Affect 02/19/18 00:12: APTT 71.6 H 02/19/18 06:00: Sodium 138, Potassium 3.8, Chloride 101, Carbon Dioxide 27.0, Anion Gap 10, BUN 59 H, Creatinine 2.05 H, Est GFR (MDRD) Af Amer 31 L, Est GFR (MDRD) Non-Af 25 L, BUN/Creatinine Ratio 28.8 H, Glucose 451 H*, Calcium 8.7 02/19/18 06:00: PT 16.8 H, INR 1.4, APTT 74.7 H 02/19/18 06:00: WBC 5.9, RBC 2.79 L, Hgb 9.3 L, Hct 29.1 L, MCV 104.3 H, MCH 33.3 H, MCHC 32.0, RDW 13.2, RDW Differential 48.8 H, Plt Count 153, MPV 12.7 H, Immature Gran % (Auto) 0.200, Neut % (Auto) 90.3 H, Lymph % (Auto) 5.4 L, [place] % (Auto) 4.1, Eos % (Auto) 0.0, Baso % (Auto) 0.0, Absolute Neuts (auto) 5.3, Total Counted Not Reportable 02/19/18 12:26: APTT 33.0 02/19/18 13:16: VBG pH 7.41, VBG pO2 32, VBG O2 Sat (Calc) 62, VBG O2 Content 28, VBG Base Excess 2 02/19/18 13:19: VBG pH 7.42, VBG pO2 31, VBG O2 Sat (Calc) 60, VBG O2 Content 30, VBG Base Excess 4 H 02/19/18 13:23: VBG pH 7.43 H, VBG pO2 28, VBG O2 Sat (Calc) 54, VBG O2 Content 31, VBG Base Excess 5 H 02/19/18 13:26: pH 7.44, Bicarbonate Actual 26.5 H, POC Total CO2 28, Base Excess 2, O2 Saturation 89 L, ABG pCO2 38.8, ABG pO2 54 L Rhythm: Sinus rhythm; premature ectopic complexes Cardiac Cath: Please see official report Medical Necessity - Tobacco Use Smoking Status: Heavy Smoker (>10/day) Tobacco Use: Cigarettes Assessment/Plan 1. 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 This is following diuresis as well as additional medical therapy with IV corticosteroid therapy directed by pulmonology. She will need to continue combined medication from a cardiovascular standpoint and a pulmonary standpoint. From a cardiovascular standpoint this will include diuretic therapy with adjustment as needed and tolerated. 2. Status post aortic valve replacement-mechanical The present time the patient does have a underlying mechanical aortic valve apparatus. On examination she does appear to have a crisp prosthetic click. Based upon her echocardiographic and cardiac catheterization studies her mechanical aortic valve prosthesis appears to be stable. She will need to continue AHA antibiotic prophylaxis as deemed appropriate. She will need to resume anticoagulant therapy with warfarin/Coumadin. She will need bridging anticoagulant therapy in the interim. 3. CAD status post CABG The patient has not had ongoing symptoms of classic angina pectoris nor has she been found to have evidence of acute coronary syndrome/ME. She has undergone reevaluation with diagnostic cardiac catheterization. Her MOLINA to the LAD is patent, her SVG to the LCx system is patent, and her SVG to the RCA system is patent. Status post review of her case it did not appear she required further catheter based revascularization therapy. Thus she will continue medical therapy when able as tolerated. 4. Peripheral arterial occlusive disease The patient does have a history of underlying renal artery stenosis having undergone left renal artery percutaneous intervention as noted above as well as carotid artery disease having undergone carotid endarterectomy. Depending upon her clinical course, vital signs, etc. consideration will be given as to whether or not she needs reassessment of her renal artery status. This may be done noninvasively with an artery duplex study. If she requires further angiographic evaluation this can be performed electively with a CTA procedure when her clinical status, renal function, permits. 5. Hyperlipidemia She will continue lipid-lowering therapy as deemed appropriate. 6. Hypertension Her blood pressures will be followed. Her medications can be adjusted as needed. 7. Diabetes mellitus She will continue under the care of internal medicine for this. 8. Renal insufficiency She does have a history of renal insufficiency. This has been chronic. However, her creatinine level has fluctuated during her diuretic therapy and volume shifts. It will need to be monitored status post her diagnostic cardiac catheterization. In order to minimize IV contrast related nephropathy she will have a temporary hold on her diuretic therapy, as long as she is clinically stable, and receive gentle IV hydration. Her creatinine levels will need to be monitored as they may fluctuate some time following this procedure. 9. COPD She will need to continue evaluation care per internal medicine and pulmonology. 10. Hemoptysis She has been having episodes of hemoptysis. She is now being evaluated by Dr. Blair of pulmonology and critical care medicine. His input has been appreciated. 11. Gastrointestinal bleeding She does have a history of previous GI bleeding. She has been evaluated at other facilities for this in the past. She has received PRBCs in the past. 12. Anemia She does have evidence of anemia. This may be multifactorial such as anemia of chronic disease as well as blood loss secondary to concerns of hemoptysis and her previous GI bleeding history. Her H&H will need to be followed. Depending upon her level she may need PRBC transfusion. Of concern, with respect to her bleeding process, if these events continue, if she continues to have evidence of concerning anemia, then consideration may have to be given in the future as whether or not she would be considered by CT surgery for reevaluation for explant of her mechanical aortic valve prosthesis and implant of a bioprosthetic aortic valve prosthesis. Comment: The patient's case was discussed and reviewed with the patient, her son , her daughter, and Dr. Blair. This note was generated with [employer] dictation software. It may contain incorrect words, spelling, and punctuation that were not noted in checking the note before signing.
[2018-02-19] MEDS: 0.9% Normal Saline 1,000 ML 50 ML IV (22:17)
[2018-02-19] MEDS: Sertraline 100 MG Tablet PO (22:26)
[2018-02-19] MEDS: Atorvastatin Calcium 40 MG Tablet PO (22:26)
[2018-02-20] VITALS (14 sets, daily range): BP systolic 105–145; BP diastolic 44–67; PULSE 57–70; RESP 16–24; TEMP 36.4–36.7; O2SAT 95–98
[2018-02-20 00:36] LABS: Bedside Glucose 397 mg/dL (70-110)
[2018-02-20] MEDS: Levothyroxine 75 MCG Tablet PO (05:20)
[2018-02-20] MEDS: 0.9% NaCl Peripheral Flush Adult/Peds IV ×2 (05:26→17:16)
[2018-02-20 07:06] LABS: Bedside Glucose 266 mg/dL (70-110)
[2018-02-20] MEDS: Ipratropium/Albuterol Sulfate 3 ML AMPUL.NEB INHALATION ×3 (07:16→19:46)
[2018-02-20 07:34] LABS: Absolute Lymphocyte Count 0.34 X10^3/ul (0.83-4.51); Absolute Neutrophil Count 6.6 X10^3/uL (2.0-7.7); Hematocrit 29.1 % (37-47); Hemoglobin 9.1 g/dl (12.0-15.0); Lymphocyte # 0.34 X10^3/ul (4.0); Lymphocyte % 4.6 % (19-41); Mean Corp Hgb Conc 31.3 g/gl (32-36); Mean Corpuscular Hgb 32.3 pg (27.0-32.0); Mean Corpuscular Volume 103.2 fL (81-99); Monocyte# 0.45 X10^3/uL; Monocyte% 6.1 % (0-10); Neutrophil # 6.57 X10^3/uL (2.7-7.7); Platelet Count 161 K/mm3 (150-450); RBC Distribution Width CV 14.1 % (11.6-14.6); RBC Distribution Width SD 52.9 fl (35.1-43.9); Red Blood Count 2.82 M/mm3 (4.2-5.4); White Blood Count 7.4 K/mm3 (4.4-11.0)
[2018-02-20 07:36] LABS: Differential Indicated SCAN CRITERIA MET; POSITIVE COUNT NO; POSITIVE DIFFERENTIAL YES; POSITIVE MORPHOLOGY NO
--- NOTE | 2018-02-20 07:44 | PCM.PROGNOTE ---
Patient Problems: Active and Suspected Problems (Last Reviewed 11/28/17 @ 13:23 by Priyanka Castano) CHF (congestive heart failure) (Acute) Hemoptysis (Acute) Subjective: The patient was seen and examined at the bedside this morning. Events from the last 24 hours have been reviewed. The patient is currently afebrile, hemodynamically stable and maintaining appropriate oxygen saturations on room air. Cardiac catheterization yesterday revealed no significant culprit lesions that needed to be intervened upon. She remains on a Lasix drip and IV steroids at this time. She does report subjective improvement in her breathing quality this morning. Objective: The patient's most recent lab work, culture data and imaging studies have all been personally reviewed. Respiratory viral panel was negative. CT chest revealed bilateral groundglass opacities. Surface echocardiogram revealed moderate segmental systolic dysfunction with an ejection fraction of 35%. Right ventricular systolic pressure was estimated to be 78 mmHg. - Physical Exam General: Alert, Oriented x3, Cooperative, No apparent distress HEENT: Atraumatic, PERRLA, Normocephalic Oral: No Gingival or Mucosal Lesions/ Ulcerations Neck: Supple, No Nodes, Trachea Midline Lungs: - - Significantly improved air movement bilaterally with mild residual wheezing. No rhonchi present. Cardiovascular: Regular rate, Regular Rhythm, Normal S1, Normal S2, Murmur Abdomen: Bowel Sounds Present, Soft, Non Tender Extremities: No clubbing, No cyanosis, Edema Skin: No breakdown Musculoskeletal: No Tenderness to Palpation of Joints or Extremities, No Muscle Wasting Lymphatic: No Cervical, Supraclavicular, or Inguinal Adenopathy Neurological: Cranial nerves II-XII grossly intact, Neuro grossly intact Psych/Mental Status: Alert and oriented to time, place, person, mood and affect Vital Signs Temp Pulse Resp BP Pulse Ox 98.0 F 61 20 H 105/44 L 98 02/20/18 05:02 02/20/18 06:58 02/20/18 05:02 02/20/18 05:02 02/20/18 05:02 Oxygen Flow Rate (L/min) 2 Oxygen Delivery Method Room Air Weight: 166 lb 10.711 oz Body Mass Index (BMI) 30.7 Intake and Output for Last 24 Hours 02/18/18 02/19/18 02/20/18 23:59 23:59 23:59 Intake Total 717.5 / 717.5 2005.0 / 2005.0 345 / 345 Output Total 2049 700 / 700 Balance -1332.5 / -1332.5 1305.0 / 1305.0 345 / 345 Microbiology Past 72 Hours 02/18/18 10:35 Respiratory Panel (PCR) - Final Mucosa - Nasopharyngeal Laboratory Tests Past 24 Hrs 02/19/18 02/19/18 02/19/18 12:26 13:16 13:19 WBC RBC Hgb Hct MCV MCH MCHC RDW RDW Differential Plt Count MPV Immature Gran % (Auto) Neut % (Auto) Lymph % (Auto) [place] % (Auto) Eos % (Auto) Baso % (Auto) Absolute Neuts (auto) Absolute Lymphs (auto) Total Counted PT INR APTT 33.0 Specimen Type KVNG KVNG pH Bicarbonate Actual POC Total CO2 Base Excess O2 Saturation ABG pCO2 ABG pO2 VBG pH 7.41 7.42 VBG pO2 32 31 VBG O2 Sat (Calc) 62 60 VBG O2 Content 28 30 VBG Base Excess 2 4 H POC Mix VBG pCO2 Pt Tmp 42.3 45.1 Sodium Potassium Chloride Carbon Dioxide Anion Gap BUN Creatinine Est GFR (MDRD) Af Amer Est GFR (MDRD) Non-Af BUN/Creatinine Ratio Glucose Calcium 02/19/18 02/19/18 02/20/18 13:23 13:26 07:15 WBC 7.4 RBC 2.82 L Hgb 9.1 L Hct 29.1 L MCV 103.2 H MCH 32.3 H MCHC 31.3 L RDW 14.1 RDW Differential 52.9 H Plt Count 161 MPV 12.0 Immature Gran % (Auto) 0.300 Neut % (Auto) 89.0 H Lymph % (Auto) 4.6 L [place] % (Auto) 6.1 Eos % (Auto) 0.0 Baso % (Auto) 0.0 Absolute Neuts (auto) 6.6 Absolute Lymphs (auto) 0.34 L Total Counted Pending PT INR APTT Specimen Type KVNG ART pH 7.44 Bicarbonate Actual 26.5 H POC Total CO2 28 Base Excess 2 O2 Saturation 89 L ABG pCO2 38.8 ABG pO2 54 L VBG pH 7.43 H VBG pO2 28 VBG O2 Sat (Calc) 54 VBG O2 Content 31 VBG Base Excess 5 H POC Mix VBG pCO2 Pt Tmp 44.1 Sodium Potassium Chloride Carbon Dioxide Anion Gap BUN Creatinine Est GFR (MDRD) Af Amer Est GFR (MDRD) Non-Af BUN/Creatinine Ratio Glucose Calcium 02/20/18 02/20/18 07:15 07:15 WBC RBC Hgb Hct MCV MCH MCHC RDW RDW Differential Plt Count MPV Immature Gran % (Auto) Neut % (Auto) Lymph % (Auto) [place] % (Auto) Eos % (Auto) Baso % (Auto) Absolute Neuts (auto) Absolute Lymphs (auto) Total Counted PT Pending INR Pending APTT Specimen Type pH Bicarbonate Actual POC Total CO2 Base Excess O2 Saturation ABG pCO2 ABG pO2 VBG pH VBG pO2 VBG O2 Sat (Calc) VBG O2 Content VBG Base Excess POC Mix VBG pCO2 Pt Tmp Sodium Pending Potassium Pending Chloride Pending Carbon Dioxide Pending Anion Gap Pending BUN Pending Creatinine Pending Est GFR (MDRD) Af Amer Pending Est GFR (MDRD) Non-Af Pending BUN/Creatinine Ratio Pending Glucose Pending Calcium Pending POC Glucose 02/20/18 02/19/18 02/19/18 06:45 22:15 16:18 POC Glucose 266 H 397 H 252 H 02/19/18 11:24 POC Glucose 396 H Clinical Impression(s) from Imaging Studies Chest X-Ray 02/16/18 16:12 IMPRESSION: There is moderate enlargement of the cardiac silhouette with vascular congestion. There is no obvious effusion. There is stable COPD with mild diffuse fibrosis. Electronically Signed: Karli Mancilla MD at 17:12 EDT Tel Direct: [phone], Service support , Chest CT 02/17/18 08:38 IMPRESSION: 1. Diffuse interlobular septal thickening with groundglass opacities in both lungs. They are suggestive of hydrostatic pulmonary edema. 2. Focal atelectases in the right posterior lung base and mild to moderate right posterior pleural fluid. 3. Cardiomegaly with aortic valve prosthesis. 4. Dense vascular calcifications of the thoracic aorta and all its branches. Electronically Signed: Lukasz Shelley MD at 10:40 EDT , Service support , Medical Necessity - Tobacco Use Smoking Status: Heavy Smoker (>10/day) Tobacco Use: Cigarettes Assessment/Plan All Active Problems (Last Reviewed 11/28/17 @ 13:23 by Priyanka Castano) CHF (congestive heart failure) (Acute) Hemoptysis (Acute) Chronic combined systolic and diastolic CHF (congestive heart failure) (Acute) H/O aortic valve replacement (Resolved) WILLIAN (acute kidney injury) (Resolved) Abnormal cardiac enzyme level (Resolved) Chest pain (Resolved) Dehydration (Resolved) Hypokalemia (Resolved) Renal abscess (Resolved) Sinus bradycardia (Resolved) RECOMMENDATIONS: 1. Continue diuretic regimen per cardiology recommendations. 2. Will transition to prednisone beginning today with plans to complete a 5-day burst. 3. Maintain saturations 88-92%. 4. Smoking cessation is strongly advisable. 5. It is highly recommended that the patient follow-up in the pulmonary medicine clinic so that baseline pulmonary function testing can be completed. In addition, she is currently on a suboptimal inhaler regimen. I would recommend that I discharge her Asmanex be discontinued and she will be started empirically on a LABA/LAMA combination inhaler, such as Anoro. IMPRESSIONS: 1. Intermittent hemoptysis Unclear if the patient's intermittent hemoptysis is related to her fluctuating INR levels, coupled with her underlying presumptive obstructive lung disease. She does report having an abnormal chest CT completed a month ago at [facility]. However, I was not able to find any CT chest reports from the documentation that was forwarded to our hospital from [place]. Regardless, a repeat CT chest obtained here only revealed evidence of groundglass changes bilaterally, most likely consistent with her known decompensated heart failure. Her Coumadin was recently restarted and she remains on a heparin drip accordingly. Her hemoptysis has also resolved at this time. No additional workup is indicated at this time. However, I would strongly suggest that the patient follow-up with us in the pulmonary medicine clinic upon her discharge from the hospital. 2. Acute hypoxemic respiratory insufficiency, likely secondary to decompensated systolic heart failure coupled with underlying pulmonary hypertension Cardiology is currently following. The patient has been volume optimized at this time and is able to lay flat. Cardiac catheterization revealed no culprit lesion that needed to be intervened upon. She is now maintaining appropriate oxygen saturations on room air. Recommend continuing scheduled bronchodilators and prednisone as ordered. Continue volume optimization per cardiology recommendations. Perform walking oximetry study prior to consideration for discharge from the hospital. 3. Presumptive COPD of unknown severity It is highly advisable that the patient follow-up in the pulmonary medicine clinic so that baseline PFTs can be completed. She reports that she is currently prescribed Asmanex and as needed albuterol in her home environment. If the patient does have straightforward obstructive lung disease, this inhaler regimen is significantly suboptimal for her lung disease. While I cannot discount that her underlying obstructive lung disease is contributing to her shortness of breath, she has improved symptomatically following volume optimization and the initiation of scheduled bronchodilators and steroids. 4. Ongoing tobacco dependency Smoking cessation is strongly advised. Nicotine replacement therapy can be offered while she is admitted to the hospital. 5. Acute on chronic CHF exacerbation Continue current medical management and diuretic therapy per cardiology recommendations. 6. Diabetes/chronic kidney disease/hyperlipidemia/mechanical aortic valve in situ Complicates care, management, recovery and prognosis. Continue heparin drip as ordered. This note was generated with [employer] dictation software. It may contain incorrect words, spelling, and punctuation that were not noted in checking the note before signing. Code Visit Inpatient E&M: 89973 Subs Hosp L2
--- NOTE | 2018-02-20 07:47 | PN_ITS ---
Patient Problems: Active and Suspected Problems (Last Reviewed 11/28/17 @ 13:23 by Priyanka Castano) CHF (congestive heart failure) (Acute) Hemoptysis (Acute) Subjective: The patient was seen and examined at the bedside this morning. Events from the last 24 hours have been reviewed. The patient is currently afebrile, hemodynamically stable and maintaining appropriate oxygen saturations on room air. Cardiac catheterization yesterday revealed no significant culprit lesions that needed to be intervened upon. She remains on a Lasix drip and IV steroids at this time. She does report subjective improvement in her breathing quality this morning. Objective: The patient's most recent lab work, culture data and imaging studies have all been personally reviewed. Respiratory viral panel was negative. CT chest revealed bilateral groundglass opacities. Surface echocardiogram revealed moderate segmental systolic dysfunction with an ejection fraction of 35%. Right ventricular systolic pressure was estimated to be 78 mmHg. - Physical Exam General: Alert, Oriented x3, Cooperative, No apparent distress HEENT: Atraumatic, PERRLA, Normocephalic Oral: No Gingival or Mucosal Lesions/ Ulcerations Neck: Supple, No Nodes, Trachea Midline Lungs: - - Significantly improved air movement bilaterally with mild residual wheezing. No rhonchi present. Cardiovascular: Regular rate, Regular Rhythm, Normal S1, Normal S2, Murmur Abdomen: Bowel Sounds Present, Soft, Non Tender Extremities: No clubbing, No cyanosis, Edema Skin: No breakdown Musculoskeletal: No Tenderness to Palpation of Joints or Extremities, No Muscle Wasting Lymphatic: No Cervical, Supraclavicular, or Inguinal Adenopathy Neurological: Cranial nerves II-XII grossly intact, Neuro grossly intact Psych/Mental Status: Alert and oriented to time, place, person, mood and affect Vital Signs Temp Pulse Resp BP Pulse Ox 98.0 F 61 20 H 105/44 L 98 02/20/18 05:02 02/20/18 06:58 02/20/18 05:02 02/20/18 05:02 02/20/18 05:02 Oxygen Flow Rate (L/min) 2 Oxygen Delivery Method Room Air Weight: 166 lb 10.711 oz Body Mass Index (BMI) 30.7 Intake and Output for Last 24 Hours 02/18/18 02/19/18 02/20/18 23:59 23:59 23:59 Intake Total 717.5 / 717.5 2005.0 / 2005.0 345 / 345 Output Total 2049 700 / 700 Balance -1332.5 / -1332.5 1305.0 / 1305.0 345 / 345 Microbiology Past 72 Hours 02/18/18 10:35 Respiratory Panel (PCR) - Final Mucosa - Nasopharyngeal Laboratory Tests Past 24 Hrs 02/19/18 02/19/18 02/19/18 12:26 13:16 13:19 WBC RBC Hgb Hct MCV MCH MCHC RDW RDW Differential Plt Count MPV Immature Gran % (Auto) Neut % (Auto) Lymph % (Auto) [place] % (Auto) Eos % (Auto) Baso % (Auto) Absolute Neuts (auto) Absolute Lymphs (auto) Total Counted PT INR APTT 33.0 Specimen Type KVNG KVNG pH Bicarbonate Actual POC Total CO2 Base Excess O2 Saturation ABG pCO2 ABG pO2 VBG pH 7.41 7.42 VBG pO2 32 31 VBG O2 Sat (Calc) 62 60 VBG O2 Content 28 30 VBG Base Excess 2 4 H POC Mix VBG pCO2 Pt Tmp 42.3 45.1 Sodium Potassium Chloride Carbon Dioxide Anion Gap BUN Creatinine Est GFR (MDRD) Af Amer Est GFR (MDRD) Non-Af BUN/Creatinine Ratio Glucose Calcium 02/19/18 02/19/18 02/20/18 13:23 13:26 07:15 WBC 7.4 RBC 2.82 L Hgb 9.1 L Hct 29.1 L MCV 103.2 H MCH 32.3 H MCHC 31.3 L RDW 14.1 RDW Differential 52.9 H Plt Count 161 MPV 12.0 Immature Gran % (Auto) 0.300 Neut % (Auto) 89.0 H Lymph % (Auto) 4.6 L [place] % (Auto) 6.1 Eos % (Auto) 0.0 Baso % (Auto) 0.0 Absolute Neuts (auto) 6.6 Absolute Lymphs (auto) 0.34 L Total Counted Pending PT INR APTT Specimen Type KVNG ART pH 7.44 Bicarbonate Actual 26.5 H POC Total CO2 28 Base Excess 2 O2 Saturation 89 L ABG pCO2 38.8 ABG pO2 54 L VBG pH 7.43 H VBG pO2 28 VBG O2 Sat (Calc) 54 VBG O2 Content 31 VBG Base Excess 5 H POC Mix VBG pCO2 Pt Tmp 44.1 Sodium Potassium Chloride Carbon Dioxide Anion Gap BUN Creatinine Est GFR (MDRD) Af Amer Est GFR (MDRD) Non-Af BUN/Creatinine Ratio Glucose Calcium 02/20/18 02/20/18 07:15 07:15 WBC RBC Hgb Hct MCV MCH MCHC RDW RDW Differential Plt Count MPV Immature Gran % (Auto) Neut % (Auto) Lymph % (Auto) [place] % (Auto) Eos % (Auto) Baso % (Auto) Absolute Neuts (auto) Absolute Lymphs (auto) Total Counted PT Pending INR Pending APTT Specimen Type pH Bicarbonate Actual POC Total CO2 Base Excess O2 Saturation ABG pCO2 ABG pO2 VBG pH VBG pO2 VBG O2 Sat (Calc) VBG O2 Content VBG Base Excess POC Mix VBG pCO2 Pt Tmp Sodium Pending Potassium Pending Chloride Pending Carbon Dioxide Pending Anion Gap Pending BUN Pending Creatinine Pending Est GFR (MDRD) Af Amer Pending Est GFR (MDRD) Non-Af Pending BUN/Creatinine Ratio Pending Glucose Pending Calcium Pending POC Glucose 02/20/18 02/19/18 02/19/18 06:45 22:15 16:18 POC Glucose 266 H 397 H 252 H 02/19/18 11:24 POC Glucose 396 H Clinical Impression(s) from Imaging Studies Chest X-Ray 02/16/18 16:12 IMPRESSION: There is moderate enlargement of the cardiac silhouette with vascular congestion. There is no obvious effusion. There is stable COPD with mild diffuse fibrosis. Electronically Signed: Karli Mancilla MD at 17:12 EDT Tel Direct: [phone], Service support , Chest CT 02/17/18 08:38 IMPRESSION: 1. Diffuse interlobular septal thickening with groundglass opacities in both lungs. They are suggestive of hydrostatic pulmonary edema. 2. Focal atelectases in the right posterior lung base and mild to moderate right posterior pleural fluid. 3. Cardiomegaly with aortic valve prosthesis. 4. Dense vascular calcifications of the thoracic aorta and all its branches. Electronically Signed: Lukasz Shelley MD at 10:40 EDT , Service support , Medical Necessity - Tobacco Use Smoking Status: Heavy Smoker (>10/day) Tobacco Use: Cigarettes Assessment/Plan All Active Problems (Last Reviewed 11/28/17 @ 13:23 by Priyanka Castano) CHF (congestive heart failure) (Acute) Hemoptysis (Acute) Chronic combined systolic and diastolic CHF (congestive heart failure) (Acute) H/O aortic valve replacement (Resolved) WILLIAN (acute kidney injury) (Resolved) Abnormal cardiac enzyme level (Resolved) Chest pain (Resolved) Dehydration (Resolved) Hypokalemia (Resolved) Renal abscess (Resolved) Sinus bradycardia (Resolved) RECOMMENDATIONS: 1. Continue diuretic regimen per cardiology recommendations. 2. Will transition to prednisone beginning today with plans to complete a 5-day burst. 3. Maintain saturations 88-92%. 4. Smoking cessation is strongly advisable. 5. It is highly recommended that the patient follow-up in the pulmonary medicine clinic so that baseline pulmonary function testing can be completed. In addition, she is currently on a suboptimal inhaler regimen. I would recommend that I discharge her Asmanex be discontinued and she will be started empirically on a LABA/LAMA combination inhaler, such as Anoro. IMPRESSIONS: 1. Intermittent hemoptysis Unclear if the patient's intermittent hemoptysis is related to her fluctuating INR levels, coupled with her underlying presumptive obstructive lung disease. She does report having an abnormal chest CT completed a month ago at [facility]. However, I was [facility] able [facility] [place]. Regardless, a repeat CT chest obtained here only revealed evidence of groundglass changes bilaterally, most likely consistent with her known decompensated heart failure. Her Coumadin was recently restarted and she remains on a heparin drip accordingly. Her hemoptysis has also resolved at this time. No additional workup is indicated at this time. However, I would strongly suggest that the patient follow-up with us in the pulmonary medicine clinic upon her discharge from the hospital. 2. Acute hypoxemic respiratory insufficiency, likely secondary to decompensated systolic heart failure coupled with underlying pulmonary hypertension Cardiology is currently following. The patient has been volume optimized at this time and is able to lay flat. Cardiac catheterization revealed no culprit lesion that needed to be intervened upon. She is now maintaining appropriate oxygen saturations on room air. Recommend continuing scheduled bronchodilators and prednisone as ordered. Continue volume optimization per cardiology recommendations. Perform walking oximetry study prior to consideration for discharge from the hospital. 3. Presumptive COPD of unknown severity It is highly advisable that the patient follow-up in the pulmonary medicine clinic so that baseline PFTs can be completed. She reports that she is currently prescribed Asmanex and as needed albuterol in her home environment. If the patient does have straightforward obstructive lung disease, this inhaler regimen is significantly suboptimal for her lung disease. While I cannot discount that her underlying obstructive lung disease is contributing to her shortness of breath, she has improved symptomatically following volume optimization and the initiation of scheduled bronchodilators and steroids. 4. Ongoing tobacco dependency Smoking cessation is strongly advised. Nicotine replacement therapy can be offered while she is admitted to the hospital. 5. Acute on chronic CHF exacerbation Continue current medical management and diuretic therapy per cardiology recommendations. 6. Diabetes/chronic kidney disease/hyperlipidemia/mechanical aortic valve in situ Complicates care, management, recovery and prognosis. Continue heparin drip as ordered. This note was generated with [employer] dictation software. It may contain incorrect words, spelling, and punctuation that were not noted in checking the note before signing. Code Visit Inpatient E&M: 28489 Subs Hosp L2
[2018-02-20 07:50] LABS: International Normalized Ratio 1.3; Prothrombin Time (Protime)PT. 16.6 SECONDS (11.7-14.9)
[2018-02-20 07:59] LABS: Anion Gap 10 (5-15); BUN 67 mg/dL (7-18); BUN/Creat Ratio 29.1 RATIO (10-20); Calcium,Total 8.6 mg/dL (8.5-10.1); Chloride 105 mmol/L (98-107); EST Glomerular Filtration Rate 22 mL/min (>60); Est Glom Filt Rate - Afr Amer 27 mL/min (>60); Estimated Creatinine Clearance 17.17 ml/min; Glucose 260 mg/dL (74-106); Potassium 4.5 mmol/L (3.5-5.1); Sodium Level 139 mmol/L (136-145)
[2018-02-20] MEDS: Insulin Lispro 100 UNIT/ML INSULN.PEN SC ×4 (08:48→22:46)
--- NOTE | 2018-02-20 09:13 | PN.CARD_ITS ---
Subjectve: The patient is awake and alert. She states she rested comfortably through the night. She was able to sleep in bed in a semi-recumbent position. She denied any acute respiratory distress. She has had no acute chest discomfort. She does continue with an element of lower extremity peripheral pitting edema although she states it does appear somewhat improved compared to admission. Objective: Vital Signs Temp Pulse Resp BP Pulse Ox 98.0 F 61 19 H 105/44 L 95 02/20/18 05:02 02/20/18 07:10 02/20/18 07:10 02/20/18 05:02 02/20/18 08:06 Oxygen Flow Rate (L/min) 2 Oxygen Delivery Method Room Air Weight: 166 lb 10.711 oz Body Mass Index (BMI) 30.7 Intake and Output for Last 24 Hours 02/18/18 02/19/18 02/20/18 23:59 23:59 23:59 Intake Total 717.5 / 717.5 2005.0 / 2005.0 345 / 345 Output Total 2049 / 2049 700 / 700 Balance -1332.5 / -1332.5 1305.0 / 1305.0 345 / 345 General: Awake, Alert, Oriented x 3, Cooperative, No Acute Distress HEENT: Atraumatic, Normocephalic, PERRL, EOMI, Sclera Non Icteric Oral: Moist Mucosa Neck: Supple, Good ROM, No JVD Lungs: Rhonchi, Expiratory Wheezes-[place] Cardiovascular: Regular Rhythm, Premature Ectopic Beats, Normal S1, [place] Prosthetic S2 Vascular: Normal Femoral Pulses Abdomen: Bowel Sounds Present, Soft, Non Tender Extremities: Moderate RLE Edema, Mild LLE Edema Neurological: No Focal Motor or Sensory Deficit Psych/Mental Status: Appropriate, Normal Affect 02/19/18 12:26: APTT 33.0 02/19/18 13:16: VBG pH 7.41, VBG pO2 32, VBG O2 Sat (Calc) 62, VBG O2 Content 28, VBG Base Excess 2 02/19/18 13:19: VBG pH 7.42, VBG pO2 31, VBG O2 Sat (Calc) 60, VBG O2 Content 30, VBG Base Excess 4 H 02/19/18 13:23: VBG pH 7.43 H, VBG pO2 28, VBG O2 Sat (Calc) 54, VBG O2 Content 31, VBG Base Excess 5 H 02/19/18 13:26: pH 7.44, Bicarbonate Actual 26.5 H, POC Total CO2 28, Base Excess 2, O2 Saturation 89 L, ABG pCO2 38.8, ABG pO2 54 L 02/20/18 07:15: WBC 7.4, RBC 2.82 L, Hgb 9.1 L, Hct 29.1 L, MCV 103.2 H, MCH 32.3 H, MCHC 31.3 L, RDW 14.1, RDW Differential 52.9 H, Plt Count 161, MPV 12.0, Immature Gran % (Auto) 0.300, Neut % (Auto) 89.0 H, Lymph % (Auto) 4.6 L, [place] % (Auto) 6.1, Eos % (Auto) 0.0, Baso % (Auto) 0.0, Absolute Neuts (auto) 6.6, Total Counted Not Reportable 02/20/18 07:15: PT 16.6 H, INR 1.3 02/20/18 07:15: Sodium 139, Potassium 4.5, Chloride 105, Carbon Dioxide 24.0, Anion Gap 10, BUN 67 H, Creatinine 2.30 H, Est GFR (MDRD) Af Amer 27 L, Est GFR (MDRD) Non-Af 22 L, BUN/Creatinine Ratio 29.1 H, Glucose 260 H, Calcium 8.6 Rhythm: Sinus rhythm; PVCs Medical Necessity - Tobacco Use Smoking Status: Heavy Smoker (>10/day) Tobacco Use: Cigarettes Assessment/Plan 1. 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 This is following diuresis as well as additional medical therapy with IV corticosteroid therapy directed by pulmonology. She will need to continue combined medication from a cardiovascular standpoint and a pulmonary standpoint. From a cardiovascular standpoint this will include diuretic therapy with adjustment as needed and tolerated. If over time her hemodynamics tolerated she may benefit from additional medications such as nitrates, beta-blockers, and afterload reducing agents which depending upon her renal function would include JG inhibitors or ARB's or similar type agents versus agent such as hydralazine. 2. Status post aortic valve replacement-mechanical The present time the patient does have a underlying mechanical aortic valve apparatus. On examination she does appear to have a crisp prosthetic click. Based upon her echocardiographic and cardiac catheterization studies her mechanical aortic valve prosthesis appears to be stable. She will need to continue AHA antibiotic prophylaxis as deemed appropriate. She will need to resume anticoagulant therapy with warfarin/Coumadin. She will need bridging anticoagulant therapy in the interim. 3. CAD status post CABG The patient has not had ongoing symptoms of classic angina pectoris nor has she been found to have evidence of acute coronary syndrome/NC. She has undergone reevaluation with diagnostic cardiac catheterization. Her MOLINA to the LAD is patent, her SVG to the LCx system is patent, and her SVG to the RCA system is patent. Status post review of her case it did not appear she required further catheter based revascularization therapy. Thus she will continue medical therapy when able as tolerated. 4. Peripheral arterial occlusive disease The patient does have a history of underlying renal artery stenosis having undergone left renal artery percutaneous intervention as noted above as well as carotid artery disease having undergone carotid endarterectomy. Depending upon her clinical course, vital signs, etc. consideration will be given as to whether or not she needs reassessment of her renal artery status. This may be done noninvasively with an artery duplex study. If she requires further angiographic evaluation this can be performed electively with a CTA procedure when her clinical status, renal function, permits. 5. Hyperlipidemia She will continue lipid-lowering therapy as deemed appropriate. 6. Hypertension Her blood pressures will be followed. Her medications can be adjusted as needed. 7. Diabetes mellitus She will continue under the care of internal medicine for this. 8. Renal insufficiency She does have a history of renal insufficiency. This has been chronic. Her creatinine level has increased somewhat. She did receive post cardiac catheterization gentle IV hydration and temporary hold of her IV diuretics. However there is concern with respect to her cardiopulmonary status and the reaccumulation of volume that may exacerbate her underlying pulmonary condition. Thus she will restart IV diuretics, at a lower dose, with follow-up of her clinical status and her renal function. Eventually she will need to be altered back to oral diuretic therapy. 9. COPD She will need to continue evaluation care per internal medicine and pulmonology. 10. Hemoptysis She has been having episodes of hemoptysis. She is now being evaluated by Dr. Blair of pulmonology and critical care medicine. His input has been appreciated. 11. Gastrointestinal bleeding She does have a history of previous GI bleeding. She has been evaluated at other facilities for this in the past. She has received PRBCs in the past. 12. Anemia She does have evidence of anemia. This may be multifactorial such as anemia of chronic disease as well as blood loss secondary to concerns of hemoptysis and h er previous GI bleeding history. Her H&H will need to be followed. Depending upon her level she may need PRBC transfusion. Of concern, with respect to her bleeding process, if these events continue, if she continues to have evidence of concerning anemia, then consideration may have to be given in the future as whether or not she would be considered by CT surgery for reevaluation for explant of her mechanical aortic valve prosthesis and implant of a bioprosthetic aortic valve prosthesis. Comment: The patient's case was discussed and reviewed with the patient, Dr. Garcia, and Dr. Blair. This note was generated with [employer] dictation software. It may contain incorrect words, spelling, and punctuation that were not noted in checking the note before signing.
[2018-02-20] MEDS: predniSONE 20 MG Tablet 40 MG PO (10:44)
[2018-02-20] MEDS: Carvedilol 3.125 MG TABLET PO ×2 (10:44→22:44)
[2018-02-20] MEDS: Allopurinol 100 MG Tablet PO (10:45)
[2018-02-20] MEDS: NYSTATIN 500,000 UNIT/5 ML UDC 500000 UNIT PO (10:45)
[2018-02-20] MEDS: Calcitriol 0.25 MCG Capsule PO (10:46)
[2018-02-20 11:20] LABS: Bedside Glucose 357 mg/dL (70-110)
--- NOTE | 2018-02-20 12:49 | PCM.PROGNOTE ---
<Aditi Bethea - Last Filed: 02/20/18 13:06> Patient Problems: Active and Suspected Problems (Last Reviewed 11/28/17 @ 13:23 by Priyanka Castano) CHF (congestive heart failure) (Acute) Hemoptysis (Acute) Subjective: Patient seen and examined. Breathing improved. Notes improvement in lower extremity edema. No other complaints. - Physical Exam General: Alert, Oriented x3, Cooperative HEENT: Atraumatic, PERRLA, EOMI, Normocephalic Neck: Supple, No JVD, Negative Carotid Bruits Lungs: Diminished, Wheezes - Improved Cardiovascular: Regular rate, Regular Rhythm, Normal S1, Normal S2, Murmur Abdomen: Bowel Sounds Present, Soft, Non Tender, Non-Distended Extremities: No clubbing, No cyanosis, Capillary Refill Less than 3 Seconds, Edema - Bilateral lower extremity, right greater than left Skin: No rashes, No breakdown Musculoskeletal: No Tenderness to Palpation of Joints or Extremities Neurological: Cranial nerves II-XII grossly intact Psych/Mental Status: Normal Affect, Appropriate Vital Signs Temp Pulse Resp BP Pulse Ox 97.6 F L 68 16 109/47 L 98 02/20/18 10:30 02/20/18 11:12 02/20/18 10:30 02/20/18 10:30 02/20/18 10:30 Oxygen Flow Rate (L/min) 2 Oxygen Delivery Method Room Air Weight: 166 lb 10.711 oz Body Mass Index (BMI) 30.7 Intake and Output for Last 24 Hours 02/18/18 02/19/18 02/20/18 23:59 23:59 23:59 Intake Total 717.5 / 717.5 2005.0 / 2005.0 766 / 766 Output Total 2049 / 2049 700 / 700 Balance -1332.5 / -1332.5 1305.0 / 1305.0 766 / 766 Microbiology Past 72 Hours 02/18/18 10:35 Respiratory Panel (PCR) - Final Mucosa - Nasopharyngeal Laboratory Tests Past 24 Hrs 02/19/18 02/19/18 02/19/18 12:26 13:16 13:19 WBC RBC Hgb Hct MCV MCH MCHC RDW RDW Differential Plt Count MPV Immature Gran % (Auto) Neut % (Auto) Lymph % (Auto) [place] % (Auto) Eos % (Auto) Baso % (Auto) Absolute Neuts (auto) Absolute Lymphs (auto) Total Counted PT INR APTT 33.0 Specimen Type KVNG KVNG pH Bicarbonate Actual POC Total CO2 Base Excess O2 Saturation ABG pCO2 ABG pO2 VBG pH 7.41 7.42 VBG pO2 32 31 VBG O2 Sat (Calc) 62 60 VBG O2 Content 28 30 VBG Base Excess 2 4 H POC Mix VBG pCO2 Pt Tmp 42.3 45.1 Sodium Potassium Chloride Carbon Dioxide Anion Gap BUN Creatinine Estim Creat Clear Calc Est GFR (MDRD) Af Amer Est GFR (MDRD) Non-Af BUN/Creatinine Ratio Glucose Calcium 02/19/18 02/19/18 02/20/18 13:23 13:26 07:15 WBC 7.4 RBC 2.82 L Hgb 9.1 L Hct 29.1 L MCV 103.2 H MCH 32.3 H MCHC 31.3 L RDW 14.1 RDW Differential 52.9 H Plt Count 161 MPV 12.0 Immature Gran % (Auto) 0.300 Neut % (Auto) 89.0 H Lymph % (Auto) 4.6 L [place] % (Auto) 6.1 Eos % (Auto) 0.0 Baso % (Auto) 0.0 Absolute Neuts (auto) 6.6 Absolute Lymphs (auto) 0.34 L Total Counted Not Reportable PT INR APTT Specimen Type KVNG ART pH 7.44 Bicarbonate Actual 26.5 H POC Total CO2 28 Base Excess 2 O2 Saturation 89 L ABG pCO2 38.8 ABG pO2 54 L VBG pH 7.43 H VBG pO2 28 VBG O2 Sat (Calc) 54 VBG O2 Content 31 VBG Base Excess 5 H POC Mix VBG pCO2 Pt Tmp 44.1 Sodium Potassium Chloride Carbon Dioxide Anion Gap BUN Creatinine Estim Creat Clear Calc Est GFR (MDRD) Af Amer Est GFR (MDRD) Non-Af BUN/Creatinine Ratio Glucose Calcium 02/20/18 02/20/18 07:15 07:15 WBC RBC Hgb Hct MCV MCH MCHC RDW RDW Differential Plt Count MPV Immature Gran % (Auto) Neut % (Auto) Lymph % (Auto) [place] % (Auto) Eos % (Auto) Baso % (Auto) Absolute Neuts (auto) Absolute Lymphs (auto) Total Counted PT 16.6 H INR 1.3 APTT Specimen Type pH Bicarbonate Actual POC Total CO2 Base Excess O2 Saturation ABG pCO2 ABG pO2 VBG pH VBG pO2 VBG O2 Sat (Calc) VBG O2 Content VBG Base Excess POC Mix VBG pCO2 Pt Tmp Sodium 139 Potassium 4.5 Chloride 105 Carbon Dioxide 24.0 Anion Gap 10 BUN 67 H Creatinine 2.30 H Estim Creat Clear Calc 17.17 Est GFR (MDRD) Af Amer 27 L Est GFR (MDRD) Non-Af 22 L BUN/Creatinine Ratio 29.1 H Glucose 260 H Calcium 8.6 POC Glucose 02/20/18 02/20/18 02/19/18 11:07 06:45 22:15 POC Glucose 357 H 266 H 397 H 02/19/18 16:18 POC Glucose 252 H Medical Necessity - Tobacco Use Smoking Status: Heavy Smoker (>10/day) Tobacco Use: Cigarettes Assessment/Plan All Active Problems (Last Reviewed 11/28/17 @ 13:23 by Priyanka Castano) CHF (congestive heart failure) (Acute) Hemoptysis (Acute) Chronic combined systolic and diastolic CHF (congestive heart failure) (Acute) H/O aortic valve replacement (Resolved) WILLIAN (acute kidney injury) (Resolved) Abnormal cardiac enzyme level (Resolved) Chest pain (Resolved) Dehydration (Resolved) Hypokalemia (Resolved) Renal abscess (Resolved) Sinus bradycardia (Resolved) 1. Acute on chronic systolic CHF-cardiology following. Continue Lasix drip, dose reduced. Echocardiogram shows an EF of 35%, moderate mitral valve insufficiency, moderate to severe tricuspid valve insufficiency, stable appearing mechanical aortic valve, mild pulmonic valve insufficiency, RVSP estimated to be 78 mmHg. Strict I&O. Daily weight. Cardiac catheterization 02/19/2018 demonstrated severe pulmonary hypertension, multivessel CAD, patent MOLINA to LAD, patent SVG to OM, SVG to RCA patent. Stable appearing aortic valve. Patient to continue with medical therapy. 2. Presumed COPD exacerbation-no prior formal testing. Patient will require PFTs as outpatient with pulmonary medicine. DC IV Solu-Medrol. Transition to prednisone 40 mg x 5 days today. Albuterol and DuoNeb aerosols. 3. Acute hypoxic respiratory insufficiency secondary to #1/#2. Now stable on room air. Complete walking pulse ox. 4. Hemoptysis, intermittent-pulmonary medicine consulted. CT of chest shows groundglass opacities bilateral lungs. Suggestive of pulmonary edema.. No further hemoptysis during admission. Coumadin on hold. Outpatient follow-up with pulmonary medicine. 4. Acute kidney injury on chronic kidney disease stage III- WILLIAN secondary to diuretic regimen. Trend BMP. History of renal artery stenosis status post stent. 5. CAD status post CABG- continue statin. Not on BB. 6. History of CVA-residual right eye blindness. Continue statin, Coumadin. 7. History of carotid artery disease status post CEA 8. Chronic macrocytic anemia-slightly below baseline. Trend CBC. 9. Type 2 diabetes mellitus-home oral regimen on hold. Accu-Cheks before meals at bedtime with sliding scale insulin. Lantus 20 units twice daily. Hemoglobin A1c 11/25/16 8.2%. 10. Status post mechanical aortic valve replacement-on chronic anticoagulation with Coumadin. GI bleed earlier this year. 11. Hyperlipidemia-continue statin. 12. Hypothyroidism-continue Synthroid regimen. 13. Gout- Continue allopurinol. 14. Depression/anxiety-continue home sertraline regimen. 15. History of breast cancer status post mastectomy 16. Tobacco dependence-encourage smoking cessation, nicotine replacement patch if desired. DVT prophylaxis-heparin drip, Coumadin This patient was seen by SILAS Kyle under the supervision of Dr. Garcia. <Guilherme Garcia - Last Filed: 02/20/18 13:29> - Physical Exam Vital Signs Temp Pulse Resp BP Pulse Ox 97.6 F L 68 16 109/47 L 98 02/20/18 10:30 02/20/18 11:12 02/20/18 10:30 02/20/18 10:30 02/20/18 10:30 Oxygen Flow Rate (L/min) 2 Oxygen Delivery Method Room Air Weight: 75.6 kg Body Mass Index (BMI) 30.7 Intake and Output for Last 24 Hours 02/18/18 02/19/18 02/20/18 23:59 23:59 23:59 Intake Total 717.5 / 717.5 2005.0 / 2005.0 766 / 766 Output Total 2049 700 / 700 Balance -1332.5 / -1332.5 1305.0 / 1305.0 766 / 766 Microbiology Past 72 Hours 02/18/18 10:35 Respiratory Panel (PCR) - Final Mucosa - Nasopharyngeal Laboratory Tests Past 24 Hrs 02/19/18 02/19/18 02/19/18 13:16 13:19 13:23 WBC RBC Hgb Hct MCV MCH MCHC RDW RDW Differential Plt Count MPV Immature Gran % (Auto) Neut % (Auto) Lymph % (Auto) [place] % (Auto) Eos % (Auto) Baso % (Auto) Absolute Neuts (auto) Absolute Lymphs (auto) Total Counted PT INR Specimen Type KVNG KVNG KVNG pH Bicarbonate Actual POC Total CO2 Base Excess O2 Saturation ABG pCO2 ABG pO2 VBG pH 7.41 7.42 7.43 H VBG pO2 32 31 28 VBG O2 Sat (Calc) 62 60 54 VBG O2 Content 28 30 31 VBG Base Excess 2 4 H 5 H POC Mix VBG pCO2 Pt Tmp 42.3 45.1 44.1 Sodium Potassium Chloride Carbon Dioxide Anion Gap BUN Creatinine Estim Creat Clear Calc Est GFR (MDRD) Af Amer Est GFR (MDRD) Non-Af BUN/Creatinine Ratio Glucose Calcium 02/19/18 02/20/18 02/20/18 13:26 07:15 07:15 WBC 7.4 RBC 2.82 L Hgb 9.1 L Hct 29.1 L MCV 103.2 H MCH 32.3 H MCHC 31.3 L RDW 14.1 RDW Differential 52.9 H Plt Count 161 MPV 12.0 Immature Gran % (Auto) 0.300 Neut % (Auto) 89.0 H Lymph % (Auto) 4.6 L [place] % (Auto) 6.1 Eos % (Auto) 0.0 Baso % (Auto) 0.0 Absolute Neuts (auto) 6.6 Absolute Lymphs (auto) 0.34 L Total Counted Not Reportable PT 16.6 H INR 1.3 Specimen Type ART pH 7.44 Bicarbonate Actual 26.5 H POC Total CO2 28 Base Excess 2 O2 Saturation 89 L ABG pCO2 38.8 ABG pO2 54 L VBG pH VBG pO2 VBG O2 Sat (Calc) VBG O2 Content VBG Base Excess POC Mix VBG pCO2 Pt Tmp Sodium Potassium Chloride Carbon Dioxide Anion Gap BUN Creatinine Estim Creat Clear Calc Est GFR (MDRD) Af Amer Est GFR (MDRD) Non-Af BUN/Creatinine Ratio Glucose Calcium 02/20/18 07:15 WBC RBC Hgb Hct MCV MCH MCHC RDW RDW Differential Plt Count MPV Immature Gran % (Auto) Neut % (Auto) Lymph % (Auto) [place] % (Auto) Eos % (Auto) Baso % (Auto) Absolute Neuts (auto) Absolute Lymphs (auto) Total Counted PT INR Specimen Type pH Bicarbonate Actual POC Total CO2 Base Excess O2 Saturation ABG pCO2 ABG pO2 VBG pH VBG pO2 VBG O2 Sat (Calc) VBG O2 Content VBG Base Excess POC Mix VBG pCO2 Pt Tmp Sodium 139 Potassium 4.5 Chloride 105 Carbon Dioxide 24.0 Anion Gap 10 BUN 67 H Creatinine 2.30 H Estim Creat Clear Calc 17.17 Est GFR (MDRD) Af Amer 27 L Est GFR (MDRD) Non-Af 22 L BUN/Creatinine Ratio 29.1 H Glucose 260 H Calcium 8.6 POC Glucose 02/20/18 02/20/18 02/19/18 11:07 06:45 22:15 POC Glucose 357 H 266 H 397 H 02/19/18 16:18 POC Glucose 252 H Assessment/Plan This patient was seen in conjunction with SILAS Kyle. I have independently interviewed and examined the patient and reviewed pertinent historical, laboratory, and other data. Please refer to SILAS Kyle note for details of this patient's presentation, findings, and recommendations. I have reviewed SILAS Kyle note and concur with documented findings. In brief, 72-year-old lady with multiple comorbidities including mechanical aortic valve on systemic anticoagulation with Coumadin who presented with shortness of breath as well as hemoptysis and assessment of acute on chronic congestive heart failure made admitted to a monitored bed for further management 02/18/18: Plan for patient to undergo left heart catheterization placed on hold in view of patient being on unable to lay flat on the table. Still remains on Lasix. -Patient's 2D echo demonstrated ejection fraction of 35% with 3+ dry cuspid valve regurgitation, 2+ mitral valve regurgitation and RVSP of 78 mmHg 02/19/2018: Patient scheduled to undergo left heart catheterization 02/20/18. Patient left heart catheterization performed the day prior did not demonstrate any hemodynamically significant lesions necessitating intervention. Case was discussed with Dr. Medina who recommended optimization of medical therapy Physical Examination: GENERAL: cooperative HEENT: Atraumatic; EYES; Anicteric, Normal Conjunctiva NECK; supple, normal thyroid, RESPIRATORY: Diminished to auscultation bilaterally, CARDIOVASCULAR: Regular S1 S2, systolic click GI: soft, non-tender, normoactive bowel sounds, : No Renal angle tenderness; No boothe EXTREMITIES: 2+ pitting edema PSYCH; Normal affect Assessment: 1. Acute diastolic congestive heart failure EF 50% 2. Hemoptysis in the context of systemic anticoagulation use 3. Status post mechanical aortic valve replacement 4. CAD with previous CABG 5. Diabetes mellitus type 2 with complications including diabetic nephropathy 6. Chronic kidney disease stage III secondary to diabetic nephropathy 7. COPD not in exacerbation 8. Dyslipidemia 9. History of CVA with residual right-sided blindness 10. History of renal atrophy stenosis with subsequent stent placement 11. Carotid artery disease status post carotid endarterectomy 12. Hypothyroidism 13. History of breast CA status post mastectomy has since remained in remission 14. Anxiety disorder 15. Tobacco dependence 16. DVT prophylaxis 17. Valvular heart disease including tricuspid and mitral valve regurgitation 18. Pulmonary hypertension with RSV P of 78mmHg Recommendations: 1. I have discussed the results of my overview and impressions with the patient 2. Options for management were reviewed Code Visit Inpatient E&M: 30370 Subs Hosp L2
[2018-02-20 16:55] LABS: Bedside Glucose 373 mg/dL (70-110)
[2018-02-20] MEDS: Furosemide 500 MG in Empty Viaflex 50 mL 1 EACH CONT INF (17:16)
[2018-02-20] MEDS: Sertraline 100 MG Tablet PO (22:44)
[2018-02-20] MEDS: Atorvastatin Calcium 40 MG Tablet PO (22:44)
[2018-02-20 22:56] LABS: Bedside Glucose 253 mg/dL (70-110)
[2018-02-21] VITALS (16 sets, daily range): BP systolic 133–164; BP diastolic 60–74; PULSE 58–70; RESP 16–22; TEMP 36.6–36.8; O2SAT 95–100
[2018-02-21] MEDS: Levothyroxine 75 MCG Tablet PO (05:37)
[2018-02-21] MEDS: Ipratropium/Albuterol Sulfate 3 ML AMPUL.NEB INHALATION ×4 (05:38→18:57)
[2018-02-21 07:00] LABS: Bedside Glucose 167 mg/dL (70-110)
--- NOTE | 2018-02-21 07:36 | PCM.PROGNOTE ---
Patient Problems: Active and Suspected Problems (Last Reviewed 11/28/17 @ 13:23 by Priyanka Castano) CHF (congestive heart failure) (Acute) Hemoptysis (Acute) Subjective: The patient was seen and examined at the bedside this morning. Events from the last 24 hours have been reviewed. The patient is currently afebrile, hemodynamically stable and maintaining appropriate oxygen saturations on room air. The patient remains on both Lasix and heparin drips. She still has a mild cough, but denies the presence of hemoptysis. Objective: The patient's most recent lab work, culture data and imaging studies have all been personally reviewed. Respiratory viral panel was negative. CT chest revealed bilateral groundglass opacities. Surface echocardiogram revealed moderate segmental systolic dysfunction with an ejection fraction of 35%. Right ventricular systolic pressure was estimated to be 78 mmHg. - Physical Exam General: Alert, Cooperative, No apparent distress HEENT: Atraumatic, PERRLA, Normocephalic Oral: No Gingival or Mucosal Lesions/ Ulcerations Neck: Supple, No Nodes, Trachea Midline Lungs: No rhonchi, Diminished, Wheezes Cardiovascular: Regular rate, Regular Rhythm, Normal S1, Normal S2, Murmur Abdomen: Bowel Sounds Present, Soft, Non Tender, Non-Distended Extremities: No clubbing, No cyanosis, Edema Skin: No breakdown Musculoskeletal: No Tenderness to Palpation of Joints or Extremities, No Muscle Wasting Lymphatic: No Cervical, Supraclavicular, or Inguinal Adenopathy Neurological: Cranial nerves II-XII grossly intact, Neuro grossly intact Psych/Mental Status: Alert and oriented to time, place, person, mood and affect Vital Signs Temp Pulse Resp BP Pulse Ox 98.1 F 62 16 133/65 H 97 02/21/18 04:24 02/21/18 05:40 02/21/18 05:40 02/21/18 04:24 02/21/18 04:24 Oxygen Flow Rate (L/min) 2 Oxygen Delivery Method Room Air Weight: 171 lb 4.787 oz Body Mass Index (BMI) 30.7 Intake and Output for Last 24 Hours 02/19/18 02/20/18 02/21/18 23:59 23:59 23:59 Intake Total 2005.0 / 2005.0 1808.4 / 1808.4 123 / 123 Output Total 700 / 700 Balance 1305.0 / 1305.0 1808.4 / 1808.4 123 / 123 Microbiology Past 72 Hours 02/18/18 10:35 Respiratory Panel (PCR) - Final Mucosa - Nasopharyngeal Laboratory Tests Past 24 Hrs 02/20/18 02/20/18 02/20/18 07:15 07:15 07:15 WBC 7.4 RBC 2.82 L Hgb 9.1 L Hct 29.1 L MCV 103.2 H MCH 32.3 H MCHC 31.3 L RDW 14.1 RDW Differential 52.9 H Plt Count 161 MPV 12.0 Immature Gran % (Auto) 0.300 Neut % (Auto) 89.0 H Lymph % (Auto) 4.6 L Woodward % (Auto) 6.1 Eos % (Auto) 0.0 Baso % (Auto) 0.0 Absolute Neuts (auto) 6.6 Absolute Lymphs (auto) 0.34 L Total Counted Not Reportable PT 16.6 H INR 1.3 Sodium 139 Potassium 4.5 Chloride 105 Carbon Dioxide 24.0 Anion Gap 10 BUN 67 H Creatinine 2.30 H Estim Creat Clear Calc 17.17 Est GFR (MDRD) Af Amer 27 L Est GFR (MDRD) Non-Af 22 L BUN/Creatinine Ratio 29.1 H Glucose 260 H Calcium 8.6 POC Glucose 02/21/18 02/20/18 02/20/18 06:51 22:38 16:05 POC Glucose 167 H 253 H 373 H 02/20/18 11:07 POC Glucose 357 H Clinical Impression(s) from Imaging Studies Chest X-Ray 02/16/18 16:12 IMPRESSION: There is moderate enlargement of the cardiac silhouette with vascular congestion. There is no obvious effusion. There is stable COPD with mild diffuse fibrosis. Electronically Signed: Karli Mancilla MD at 17:12 EDT Tel Direct: [phone], Service support , Chest CT 02/17/18 08:38 IMPRESSION: 1. Diffuse interlobular septal thickening with groundglass opacities in both lungs. They are suggestive of hydrostatic pulmonary edema. 2. Focal atelectases in the right posterior lung base and mild to moderate right posterior pleural fluid. 3. Cardiomegaly with aortic valve prosthesis. 4. Dense vascular calcifications of the thoracic aorta and all its branches. Electronically Signed: Lukasz Shelley MD at 10:40 EDT , Service support , Medical Necessity - Tobacco Use Smoking Status: Heavy Smoker (>10/day) Tobacco Use: Cigarettes Assessment/Plan All Active Problems (Last Reviewed 11/28/17 @ 13:23 by Priyanka Castano) CHF (congestive heart failure) (Acute) Hemoptysis (Acute) Chronic combined systolic and diastolic CHF (congestive heart failure) (Acute) H/O aortic valve replacement (Resolved) WILLIAN (acute kidney injury) (Resolved) Abnormal cardiac enzyme level (Resolved) Chest pain (Resolved) Dehydration (Resolved) Hypokalemia (Resolved) Renal abscess (Resolved) Sinus bradycardia (Resolved) RECOMMENDATIONS: 1. Continue diuretic regimen per cardiology recommendations. 2. Continue prednisone with plans to complete a 5-day burst. 3. Maintain saturations 88-92%. 4. Smoking cessation is strongly advisable. 5. It is highly recommended that the patient follow-up in the pulmonary medicine clinic so that baseline pulmonary function testing can be completed. In addition, she is currently on a suboptimal inhaler regimen. I would recommend that at discharge her Asmanex be discontinued and that she be started empirically on a LABA/LAMA combination inhaler, such as Anoro. IMPRESSIONS: 1. Intermittent hemoptysis Unclear if the patient's intermittent hemoptysis is related to her fluctuating INR levels, coupled with her underlying presumptive obstructive lung disease. She does report having an abnormal chest CT completed a month ago at [facility]. However, I was not able to find any CT chest reports from the documentation that was forwarded to our hospital from [facility]. Regardless, a repeat CT chest obtained here only revealed evidence of groundglass changes bilaterally, most likely consistent with her known decompensated heart failure. Her Coumadin was recently restarted and she remains on a heparin drip accordingly. Her hemoptysis has also resolved at this time. No additional workup is indicated at this time. However, I would strongly suggest that the patient follow-up with us in the pulmonary medicine clinic upon her discharge from the hospital. 2. Acute hypoxemic respiratory insufficiency, likely secondary to decompensated systolic heart failure coupled with underlying pulmonary hypertension Cardiology is currently following. The patient has been volume optimized at this time and is able to lay flat. Cardiac catheterization revealed no culprit lesion that needed to be intervened upon. She is now maintaining appropriate oxygen saturations on room air. Recommend continuing scheduled bronchodilators and prednisone as ordered. Continue volume optimization per cardiology recommendations. Perform walking oximetry study prior to consideration for discharge from the hospital. 3. Presumptive COPD of unknown severity It is highly advisable that the patient follow-up in the pulmonary medicine clinic so that baseline PFTs can be completed. She reports that she is currently prescribed Asmanex and as needed albuterol in her home environment. If the patient does have straightforward obstructive lung disease, this inhaler regimen is significantly suboptimal for her lung disease. While I cannot discount that her underlying obstructive lung disease is contributing to her shortness of breath, she has improved symptomatically following volume optimization and the initiation of scheduled bronchodilators and steroids. 4. Ongoing tobacco dependency Smoking cessation is strongly advised. Nicotine replacement therapy can be offered while she is admitted to the hospital. 5. Acute on chronic CHF exacerbation Continue current medical management and diuretic therapy per cardiology recommendations. 6. Diabetes/chronic kidney disease/hyperlipidemia/mechanical aortic valve in situ Complicates care, management, recovery and prognosis. Continue heparin drip as ordered. This note was generated with [employer] dictation software. It may contain incorrect words, spelling, and punctuation that were not noted in checking the note before signing. DISPOSITION: Given the patient's lack of ongoing ICU needs, will sign off. Please have the patient follow-up in the pulmonary medicine clinic within 2 weeks of her discharge from the hospital. Feel free to call with any additional questions. Code Visit Inpatient E&M: 62919 Subs Hosp L2
[2018-02-21] MEDS: Carvedilol 3.125 MG TABLET PO ×2 (08:00→21:08)
[2018-02-21] MEDS: Calcitriol 0.25 MCG Capsule PO (08:00)
[2018-02-21] MEDS: Allopurinol 100 MG Tablet PO (08:00)
[2018-02-21] MEDS: predniSONE 20 MG Tablet 40 MG PO (08:00)
[2018-02-21] MEDS: Insulin Lispro 100 UNIT/ML INSULN.PEN SC ×4 (08:01→21:15)
[2018-02-21 08:36] LABS: International Normalized Ratio 1.7; Prothrombin Time (Protime)PT. 20.3 SECONDS (11.7-14.9)
[2018-02-21 09:06] LABS: Anion Gap 11 (5-15); BUN 89 mg/dL (7-18); BUN/Creat Ratio 25.1 RATIO (10-20); Calcium,Total 8.7 mg/dL (8.5-10.1); Chloride 104 mmol/L (98-107); Creatinine, Serum 3.55 mg/dL (0.55-1.02); EST Glomerular Filtration Rate 14 mL/min (>60); Est Glom Filt Rate - Afr Amer 16 mL/min (>60); Estimated Creatinine Clearance 11.13 ml/min; Glucose 164 mg/dL (74-106); Potassium 5.6 mmol/L (3.5-5.1); Sodium Level 139 mmol/L (136-145)
[2018-02-21 11:16] LABS: Bedside Glucose 200 mg/dL (70-110)
--- NOTE | 2018-02-21 13:30 | NURSING ---
Iv lasix gtt discontinued at this time per verbal order from Aditi Bethea [employer]
--- NOTE | 2018-02-21 13:48 | PN_ITS ---
<Aditi Bethea - Last Filed: 02/21/18 13:48> Patient Problems: Active and Suspected Problems (Last Reviewed 11/28/17 @ 13:23 by Priyanka Castano) CHF (congestive heart failure) (Acute) Hemoptysis (Acute) Subjective: Patient seen and examined. Feels well. Wishes to return home. No acute events overnight. Walking pulse ox completed and patient did not require supplemental oxygen with ambulation. - Physical Exam General: Alert, Oriented x3, Cooperative, No apparent distress HEENT: Atraumatic, PERRLA, EOMI, Normocephalic Neck: Supple, No JVD, Negative Carotid Bruits Lungs: Clear to auscultation, Normal air movement Cardiovascular: Regular rate, Regular Rhythm, Normal S1, Normal S2 Abdomen: Bowel Sounds Present, Soft, Non Tender, Non-Distended Extremities: No clubbing, No cyanosis, Edema - Bilateral lower extremity, right greater than left Skin: No rashes, No breakdown Musculoskeletal: No Tenderness to Palpation of Joints or Extremities Neurological: Cranial nerves II-XII grossly intact, Neuro grossly intact Psych/Mental Status: Normal Affect, Appropriate Vital Signs Temp Pulse Resp BP Pulse Ox 98.2 F 60 16 164/72 H 97 02/21/18 08:45 02/21/18 11:18 02/21/18 11:04 02/21/18 08:45 02/21/18 11:42 Oxygen Flow Rate (L/min) 2 Oxygen Delivery Method Room Air Weight: 171 lb 4.787 oz Body Mass Index (BMI) 30.7 Intake and Output for Last 24 Hours 02/19/18 02/20/18 02/21/18 23:59 23:59 23:59 Intake Total 2005.0 / 2005.0 1808.4 / 1808.4 123 / 123 Output Total 700 / 700 Balance 1305.0 / 1305.0 1808.4 / 1808.4 123 / 123 Microbiology Past 72 Hours 02/18/18 10:35 Respiratory Panel (PCR) - Final Mucosa - Nasopharyngeal Laboratory Tests Past 24 Hrs 02/21/18 02/21/18 08:05 08:05 PT 20.3 H INR 1.7 Sodium 139 Potassium 5.6 H Chloride 104 Carbon Dioxide 24.0 Anion Gap 11 BUN 89 H Creatinine 3.55 H Estim Creat Clear Calc 11.13 Est GFR (MDRD) Af Amer 16 L Est GFR (MDRD) Non-Af 14 L BUN/Creatinine Ratio 25.1 H Glucose 164 H Calcium 8.7 POC Glucose 02/21/18 02/21/18 02/20/18 11:06 06:51 22:38 POC Glucose 200 H 167 H 253 H 02/20/18 16:05 POC Glucose 373 H Medical Necessity - Tobacco Use Smoking Status: Heavy Smoker (>10/day) Tobacco Use: Cigarettes Assessment/Plan All Active Problems (Last Reviewed 11/28/17 @ 13:23 by Priyanka Castano) CHF (congestive heart failure) (Acute) Hemoptysis (Acute) Chronic combined systolic and diastolic CHF (congestive heart failure) (Acute) H/O aortic valve replacement (Resolved) WILLIAN (acute kidney injury) (Resolved) Abnormal cardiac enzyme level (Resolved) Chest pain (Resolved) Dehydration (Resolved) Hypokalemia (Resolved) Renal abscess (Resolved) Sinus bradycardia (Resolved) 1. Acute on chronic systolic CHF-cardiology following. Lasix drip discontinued due to worsening renal function. Echocardiogram shows an EF of 35%, moderate mitral valve insufficiency, moderate to severe tricuspid valve insufficiency, stable appearing mechanical aortic valve, mild pulmonic valve insufficiency, RVSP estimated to be 78 mmHg. Strict I&O. Daily weight. Cardiac catheterization 02/19/2018 demonstrated severe pulmonary hypertension, multivessel CAD, patent MOLINA to LAD, patent SVG to OM, SVG to RCA patent. Stable appearing aortic valve. Patient to continue with medical therapy. 2. Presumed COPD exacerbation-no prior formal testing. Patient will require PFTs as outpatient with pulmonary medicine. DC IV Solu-Medrol. Transition to prednisone 40 mg x 5 days today. Albuterol and DuoNeb aerosols. 3. Acute hypoxic respiratory insufficiency secondary to #1/#2. Now stable on room air. Walking pulse ox completed and patient did not require supplemental oxygen with the ablation. 4. Hemoptysis, intermittent-pulmonary medicine consulted. CT of chest shows groundglass opacities bilateral lungs. Suggestive of pulmonary edema.. No further hemoptysis during admission. Resume Coumadin. Outpatient follow-up with pulmonary medicine. 4. Acute kidney injury on chronic kidney disease stage III- WILLIAN secondary to diuretic regimen. Trend BMP. History of renal artery stenosis status post stent. 5. CAD status post CABG- continue statin. Not on BB. 6. History of CVA-residual right eye blindness. Continue statin, Coumadin. 7. History of carotid artery disease status post CEA 8. Chronic macrocytic anemia-slightly below baseline. Trend CBC. 9. Type 2 diabetes mellitus-home oral regimen on hold. Accu-Cheks before meals at bedtime with sliding scale insulin. Lantus 20 units twice daily. Hemoglobin A1c 11/25/16 8.2%. 10. Status post mechanical aortic valve replacement-on chronic anticoagulation with Coumadin. GI bleed earlier this year. 11. Hyperlipidemia-continue statin. 12. Hypothyroidism-continue Synthroid regimen. 13. Gout- Continue allopurinol. 14. Depression/anxiety-continue home sertraline regimen. 15. History of breast cancer status post mastectomy 16. Tobacco dependence-encourage smoking cessation, nicotine replacement patch if desired. DVT prophylaxis-heparin drip, Coumadin This patient was seen by SILAS Kyle under the supervision of Dr. Garcia. <Guilherme Garcia - Last Filed: 02/21/18 14:03> - Physical Exam Vital Signs Temp Pulse Resp BP Pulse Ox 98.2 F 60 16 164/72 H 97 02/21/18 08:45 02/21/18 11:18 02/21/18 11:04 02/21/18 08:45 02/21/18 11:42 Oxygen Flow Rate (L/min) 2 Oxygen Delivery Method Room Air Weight: 77.7 kg Body Mass Index (BMI) 30.7 Intake and Output for Last 24 Hours 02/19/18 02/20/18 02/21/18 23:59 23:59 23:59 Intake Total 2005.0 / 2005.0 1808.4 / 1808.4 123 / 123 Output Total 700 / 700 Balance 1305.0 / 1305.0 1808.4 / 1808.4 123 / 123 Microbiology Past 72 Hours 02/18/18 10:35 Respiratory Panel (PCR) - Final Mucosa - Nasopharyngeal Laboratory Tests Past 24 Hrs 02/21/18 02/21/18 08:05 08:05 PT 20.3 H INR 1.7 Sodium 139 Potassium 5.6 H Chloride 104 Carbon Dioxide 24.0 Anion Gap 11 BUN 89 H Creatinine 3.55 H Estim Creat Clear Calc 11.13 Est GFR (MDRD) Af Amer 16 L Est GFR (MDRD) Non-Af 14 L BUN/Creatinine Ratio 25.1 H Glucose 164 H Calcium 8.7 POC Glucose 02/21/18 02/21/18 02/20/18 11:06 06:51 22:38 POC Glucose 200 H 167 H 253 H 02/20/18 16:05 POC Glucose 373 H Assessment/Plan This patient was seen in conjunction with SILAS yKle. I have independently interviewed and examined the patient and reviewed pertinent historical, laboratory, and other data. Please refer to MARCIA Kyle note for details of this patient's presentation, findings, and recommendations. I have reviewed SILAS Kyle note and concur with documented findings. In brief, 72-year-old lady with multiple comorbidities including mechanical aortic valve on systemic anticoagulation with Coumadin who presented with shortness of breath as well as hemoptysis and assessment of acute on chronic congestive heart failure made admitted to a monitored bed for further management 02/18/18: Plan for patient to undergo left heart catheterization placed on hold in view of patient being on unable to lay flat on the table. Still remains on Lasix. -Patient's 2D echo demonstrated ejection fraction of 35% with 3+ dry cuspid valve regurgitation, 2+ mitral valve regurgitation and RVSP of 78 mmHg 02/19/2018: Patient scheduled to undergo left heart catheterization 02/20/18. Patient left heart catheterization performed the day prior did not demonstrate any hemodynamically significant lesions necessitating intervention. Case was discussed with Dr. Medina who recommended optimization of medical therapy 02/21/2018. There is been significant worsening of patient's kidney function plan to discharge patient subsequently deferred. Patient started on gentle IV fluids with consultation placed to nephrology creatinine on admission was 1.73.55 today Physical Examination: GENERAL: cooperative HEENT: Atraumatic; EYES; Anicteric, Normal Conjunctiva NECK; supple, normal thyroid, RESPIRATORY: Diminished to auscultation bilaterally, CARDIOVASCULAR: Regular S1 S2, systolic click GI: soft, non-tender, normoactive bowel sounds, : No Renal angle tenderness; No boothe PSYCH; Normal affect Assessment: 1. Acute diastolic congestive heart failure EF 50% 2. Hemoptysis in the context of systemic anticoagulation use 3. Status post mechanical aortic valve replacement 4. CAD with previous CABG 5. Diabetes mellitus type 2 with complications including diabetic nephropathy 6. Chronic kidney disease stage III secondary to diabetic nephropathy 7. COPD not in exacerbation 8. Dyslipidemia 9. History of CVA with residual right-sided blindness 10. History of renal atrophy stenosis with subsequent stent placement 11. Carotid artery disease status post carotid endarterectomy 12. Hypothyroidism 13. History of breast CA status post mastectomy has since remained in remission 14. Anxiety disorder 15. Tobacco dependence 16. DVT prophylaxis 17. Valvular heart disease including tricuspid and mitral valve regurgitation 18. Pulmonary hypertension with RSV P of 78mmHg 19. Acute kidney injury multifactorial including diuretic use as well as possible contrast-induced nephropathy consultation placed to nephrology Recommendations: 1. I have discussed the results of my overview and impressions with the patient 2. Options for management were reviewed Code Visit Inpatient E&M: 53430 Subs Hosp L3
[2018-02-21 16:36] LABS: Bedside Glucose 202 mg/dL (70-110)
[2018-02-21] MEDS: 0.9% Normal Saline 1,000 ML 60 ML IV (16:56)
--- NOTE | 2018-02-21 21:06 | PCM.CONS.R ---
Consultation - Renal 02/21/18 PCP/ Referring MD: Requesting physician: Aditi Bethea NP Primary care physician: Cedrick Tavares Reason for Consultation:: WILLIAN on CKD - History of Present Illness History of Present Illness: The patient is a 72 year old F with past history of T2DM, HTN, CAD s/p CABG, s/p AVR, and pulmonary HTN is admitted on with heart failure and angina. Repeat echo during this admission revealed decreased EF at 45%. She underwent ischemic work up, including LHC on . Nephrology is asked to evaluate WILLIAN on CKD. Her baseline SCr appears to be around 1.7-1.8 mg/dL. SCr increased to 2.30 mg/dL on 02/20/18 and 3.55 mg/dL today. The pt denies current CP. Her dyspnea has improved since admission. Her edema has also improved. She denies nausea, vomiting or diarrhea in the past 3 days. She denies urinary urgency or hesitancy. There is no incontinence. - Allergies Allergies: Allergies ciprofloxacin [From Cipro] Allergy (Verified 02/16/18 13:17) Swelling mesalamine Allergy (Verified 02/16/18 13:17) SOB/abdominal cramps Opioids - Morphine Analogues Adverse Reaction (Severe, Verified 02/16/18 13:17) emesis adhesive Adverse Reaction (Verified 02/16/18 15:28) blisters tegaderm ok clonidine Adverse Reaction (Verified 02/16/18 15:28) Unknown tramadol Adverse Reaction (Verified 02/16/18 13:17) Nausea/Vom/Diarrhea - Current Medications Current Medications: Current Medications Albuterol/Ipratropium (Duoneb) 3 ml INHALATION Q4HWA.RT [facility] Last Admin: 02/21/18 18:57 Dose: 3 ml Allopurinol (Zyloprim) 100 mg PO DAILY@0800 [facility] Last Admin: 02/21/18 08:00 Dose: 100 mg Atorvastatin Calcium (Lipitor) 40 mg PO QHS [facility] Last Admin: 02/20/18 22:44 Dose: 40 mg Calcitriol (Rocaltrol) 0.25 mcg PO DAILY [facility] Last Admin: 02/21/18 08:00 Dose: 0.25 mcg Carvedilol (Coreg) 3.125 mg PO BID [facility] Last Admin: 02/21/18 08:00 Dose: 3.125 mg Ergocalciferol (Vitamin D) 50,000 unit PO Q30D@1000 [facility] Heparin Sodium (Beef Lung) (Heparin 500 Unit/5 Ml (100/Ml)) 500 unit IV UD PRN PRN Reason: HEPARIN FLUSH Heparin Sodium (Porcine) (Heparin Na) 0 unit IV UD PRN; Protocol Heparin Sodium/Dextrose () 25,000 units in 250 mls @ 11 mls/hr IV .[id number] [facility]; Protocol Sodium Chloride () 1,000 mls @ 60 mls/hr IV .[id number] [facility] Last Admin: 02/21/18 16:56 Dose: 60 mls/hr Insulin Glargine (Lantus (Bk)) 20 units SC BID [facility] Last Admin: 02/21/18 08:01 Dose: 20 units Insulin Human Lispro (Humalog Kwikpen (Bk)) 0 unit SC ACHS [facility]; Protocol Last Admin: 02/21/18 16:57 Dose: 3 u Levothyroxine Sodium (Synthroid) 75 mcg PO DAILY@0600 [facility] Last Admin: 02/21/18 05:37 Dose: 75 mcg Magnesium Hydroxide (Milk Of Magnesia) 30 ml PO DAILY PRN PRN Reason: Constipation Potassium [facility] Last Admin: 02/21/18 16:57 Dose: 40 meq Prednisone () 40 mg PO DAILY@0800 [facility] Stop: 02/25/18 08:31 Last Admin: 02/21/18 08:00 Dose: 40 mg Sertraline HCl (Zoloft) 100 mg PO QHS [facility] Last Admin: 02/20/18 22:44 Dose: 100 mg Sodium Chloride () 5 - 30 ml IV UD PRN PRN Reason: SALINE FLUSH Last Admin: 02/20/18 17:16 Dose: 5 ml Warfarin Sodium (Coumadin (Pbkc)) 2 mg PO DAILY@1700 [facility] Last Admin: 02/21/18 16:58 Dose: 2 mg Zolpidem Tartrate (Ambien (Generic)) 5 mg PO QHS PRN PRN PRN Reason: SLEEP - Past Medical History Past Medical History (Chronic Problems): Chronic Problems (Last Reviewed 11/28/17 @ 13:23 by Priyanka Castano) H/O mechanical aortic valve replacement (Chronic) CKD (chronic kidney disease), stage III (Chronic) Anemia (Chronic) Renal insufficiency (Chronic) Nonrheumatic mitral (valve) insufficiency (Chronic) Atherosclerotic heart disease of [place] coronary artery without angina pectoris (Chronic) CABG, MOLINA graft to LAD, SVG to OM 1, SVG to acute marginal; Primary pulmonary hypertension (Chronic) Aortic valve disease (Chronic) Sinus bradycardia (Chronic) Cardiac arrhythmia (Chronic) Abnormal electrocardiogram (Chronic) Aortocoronary bypass status (Chronic) CABG, MOLINA graft to LAD, SVG to OM 1, SVG to acute marginal; 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) Other nonspecific abnormal cardiovascular system function study (Chronic) Palpitations (Chronic) Nicotine abuse (Chronic) Diastolic dysfunction (Chronic) Bilateral carotid bruits (Chronic) Orthostatic hypotension (Chronic) Systolic CHF, chronic (Chronic) 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) Hypokalemia (Chronic) S/P CABG x 3 (Chronic) Gastrointestinal bleed (Chronic) Anemia due to blood loss, acute (Chronic) Chronic anticoagulation (Chronic) Chronic renal failure, stage 3 (moderate) (Chronic) CAD (coronary artery disease) (Chronic) History of aortic valve replacement with metallic valve (Chronic) History of CEA (carotid endarterectomy) (Chronic) FELICIA (renal artery stenosis) (Chronic) w stent HTN (hypertension) (Chronic) COPD (chronic obstructive pulmonary disease) (Chronic) Tobacco dependence (Chronic) Mitral valve insufficiency (Chronic) Tricuspid valve insufficiency (Chronic) HLD (hyperlipidemia) (Chronic) Diabetes (Chronic) Diastolic CHF, chronic (Chronic) Carotid artery disease (Chronic) Crohn's colitis (Chronic) - Past Surgical History Surgical History: coronary bypass surgery, - - CABG (MOLINA to LAD; SVG to OM; SVG to acute marginal) AVR (23 mm ON-X valve) - Social History Smoking Status: Heavy Smoker (>10/day) Alcohol: None Drugs: None - Family History Maternal Family History: Family History (Last Reviewed 02/16/18 @ 13:20 by Honey Oshea) Mother CVA (cerebral vascular accident) Hypertension Sister Myocardial infarction Breast cancer Sister CVA (cerebral vascular accident) Myocardial infarction Breast cancer Son Myocardial infarction CAD (coronary artery disease) History Items: No pertinent history Review of Systems Constitutional: Denies: Chills, Fever Eyes: Denies: Blurred vision, Pain, Vision Change HEENT: Denies: Head Aches, Sinus Congestion, Sinus Drainage Cardiovascular: Reports: Edema, Orthopnea. Denies: Chest Pain Respiratory: Denies: Cough, Shortness of breath at rest, Sputum production Gastrointestinal: Denies: Abdominal Pain, Nausea, Vomiting Genitourinary: Reports: Frequency. Denies: Dysuria, Hesitancy, Incontinence, Urgency Musculoskeletal: Denies: Joint Pain, Joint Tenderness Skin: Denies: Rash, Wounds Neurological: Denies: Numbness, Tingling, Focal weakness Psychiatric: Denies: Anxiety, Depression, Homicidal Ideations, Suicidal Ideations Hematologic/ Lymphatic: Denies: Easy Bruising, Easy Bleeding Patient Problems: Active and Suspected Problems (Last Reviewed 11/28/17 @ 13:23 by Priyanka Castano) CHF (congestive heart failure) (Acute) Hemoptysis (Acute) - Physical Exam General: Alert, Oriented x3, Cooperative HEENT: Atraumatic, PERRLA, EOMI Oral: Moist Mucosa Neck: Supple Lungs: Rhonchi - bilaterally, Wheezes Cardiovascular: Normal S1, Normal S2, - - valve click Abdomen: Bowel Sounds Present, Soft, Non Tender Extremities: Edema - 1+ LE Skin: No rashes Musculoskeletal: No Tenderness to Palpation of Joints or Extremities Vital Signs Temp Pulse Resp BP Pulse Ox 97.8 F 60 18 146/74 H 100 02/21/18 20:35 02/21/18 20:35 02/21/18 20:35 02/21/18 20:35 02/21/18 20:35 Oxygen Flow Rate (L/min) 2 Oxygen Delivery Method Nasal Cannula Weight: 77.7 kg Body Mass Index (BMI) 30.7 Intake and Output for Last 24 Hours 02/19/18 02/20/18 02/21/18 23:59 23:59 23:59 Intake Total 2005.0 / 2005.0 1808.4 / 1808.4 1159 / 1159 Output Total 700 / 700 650 / 650 Balance 1305.0 / 1305.0 1808.4 / 1808.4 509 / 509 Laboratory Tests Past 24 Hrs 02/21/18 02/21/18 08:05 08:05 PT 20.3 H INR 1.7 Sodium 139 Potassium 5.6 H Chloride 104 Carbon Dioxide 24.0 Anion Gap 11 BUN 89 H Creatinine 3.55 H Estim Creat Clear Calc 11.13 Est GFR (MDRD) Af Amer 16 L Est GFR (MDRD) Non-Af 14 L BUN/Creatinine Ratio 25.1 H Glucose 164 H Calcium 8.7 POC Glucose 02/21/18 02/21/18 02/21/18 16:30 11:06 06:51 POC Glucose 202 H 200 H 167 H 02/20/18 22:38 POC Glucose 253 H Assessment/Plan All Active Problems (Last Reviewed 11/28/17 @ 13:23 by Priyanka Castano) CHF (congestive heart failure) (Acute) Hemoptysis (Acute) Chronic combined systolic and diastolic CHF (congestive heart failure) (Acute) H/O aortic valve replacement (Resolved) WILLIAN (acute kidney injury) (Resolved) Abnormal cardiac enzyme level (Resolved) Chest pain (Resolved) Dehydration (Resolved) Hypokalemia (Resolved) Renal abscess (Resolved) Sinus bradycardia (Resolved) 1. Acute kidney injury on chronic kidney disease stage 3b. CKD is likely due to diabetic nephropathy. Suspect WILLIAN is due to contrast nephropathy ([facility] on 02/19/18). WILLIAN is less likely from CRS since she had been diuresed but still possible. Doubt other causes of WILLIAN at this time. Will recheck UA. Check urine indices. If urine output declines, will check renal US. No urgent need for dialysis. Recheck renal function and electrolytes in am. 2. Hyperkalemia. secondary to WILLIAN/CKD. Stop scheduled KCl. Recheck K level in am. 3. CAD with ischemic CMP/HFrEF. EF 35%. Was diuresed earlier during admission. Agree with holding diuretics for now since pt does not appear to be severely volume OL or decompensated. 4. Hx of hypomagensemia. Pt is on MagOx. Recheck Mg level in am since pt has WILLIAN. If Mg>2.5, stop MagOx.
[2018-02-21] MEDS: Sertraline 100 MG Tablet PO (21:08)
[2018-02-21] MEDS: Atorvastatin Calcium 40 MG Tablet PO (21:08)
--- NOTE | 2018-02-21 21:10 | CON.PCM_ITS ---
Consultation - Renal 02/21/18 PCP/ Referring MD: Requesting physician: Aditi Bethea NP Primary care physician: Cedrick Tavares Reason for Consultation:: WILLIAN on CKD - History of Present Illness History of Present Illness: The patient is a 72 year old F with past history of T2DM, HTN, CAD s/p CABG, s/p AVR, and pulmonary HTN is admitted on with heart failure and angina. Repeat echo during this admission revealed decreased EF at 45%. She underwent ischemic work up, including LHC on . Nephrology is asked to evaluate WILLIAN on CKD. Her baseline SCr appears to be around 1.7-1.8 mg/dL. SCr increased to 2.30 mg/dL on 02/20/18 and 3.55 mg/dL today. The pt denies current CP. Her dyspnea has improved since admission. Her edema has also improved. She denies nausea, vomiting or diarrhea in the past 3 days. She denies urinary urgency or hesitancy. There is no incontinence. - Allergies Allergies: Allergies ciprofloxacin [From Cipro] Allergy (Verified 02/16/18 13:17) Swelling mesalamine Allergy (Verified 02/16/18 13:17) SOB/abdominal cramps Opioids - Morphine Analogues Adverse Reaction (Severe, Verified 02/16/18 13:17) emesis adhesive Adverse Reaction (Verified 02/16/18 15:28) blisters tegaderm ok clonidine Adverse Reaction (Verified 02/16/18 15:28) Unknown tramadol Adverse Reaction (Verified 02/16/18 13:17) Nausea/Vom/Diarrhea - Current Medications Current Medications: Current Medications Albuterol/Ipratropium (Duoneb) 3 ml INHALATION Q4HWA.RT [facility] Last Admin: 02/21/18 18:57 Dose: 3 ml Allopurinol (Zyloprim) 100 mg PO DAILY@0800 [facility] Last Admin: 02/21/18 08:00 Dose: 100 mg Atorvastatin Calcium (Lipitor) 40 mg PO QHS [facility] Last Admin: 02/20/18 22:44 Dose: 40 mg Calcitriol (Rocaltrol) 0.25 mcg PO DAILY [facility] Last Admin: 02/21/18 08:00 Dose: 0.25 mcg Carvedilol (Coreg) 3.125 mg PO BID [facility] Last Admin: 02/21/18 08:00 Dose: 3.125 mg Ergocalciferol (Vitamin D) 50,000 unit PO Q30D@1000 [facility] Heparin Sodium (Beef Lung) (Heparin 500 Unit/5 Ml (100/Ml)) 500 unit IV UD PRN PRN Reason: HEPARIN FLUSH Heparin Sodium (Porcine) (Heparin Na) 0 unit IV UD PRN; Protocol Heparin Sodium/Dextrose () 25,000 units in 250 mls @ 11 mls/hr IV .[id number] [facility]; Protocol Sodium Chloride () 1,000 mls @ 60 mls/hr IV .[id number] [facility] Last Admin: 02/21/18 16:56 Dose: 60 mls/hr Insulin Glargine (Lantus (Bk)) 20 units SC BID [facility] Last Admin: 02/21/18 08:01 Dose: 20 units Insulin Human Lispro (Humalog Kwikpen (Bk)) 0 unit SC ACHS [facility]; Protocol Last Admin: 02/21/18 16:57 Dose: 3 u Levothyroxine Sodium (Synthroid) 75 mcg PO DAILY@0600 [facility] Last Admin: 02/21/18 05:37 Dose: 75 mcg Magnesium Hydroxide (Milk Of Magnesia) 30 ml PO DAILY PRN PRN Reason: Constipation [facility] Last Admin: 02/21/18 16:57 Dose: 40 meq Prednisone () 40 mg PO DAILY@0800 [facility] Stop: 02/25/18 08:31 Last Admin: 02/21/18 08:00 Dose: 40 mg Sertraline HCl (Zoloft) 100 mg PO QHS [facility] Last Admin: 02/20/18 22:44 Dose: 100 mg Sodium Chloride () 5 - 30 ml IV UD PRN PRN Reason: SALINE FLUSH Last Admin: 02/20/18 17:16 Dose: 5 ml Warfarin Sodium (Coumadin (Pbkc)) 2 mg PO DAILY@1700 [facility] Last Admin: 02/21/18 16:58 Dose: 2 mg Zolpidem Tartrate (Ambien (Generic)) 5 mg PO QHS PRN PRN PRN Reason: SLEEP - Past Medical History Past Medical History (Chronic Problems): Chronic Problems (Last Reviewed 11/28/17 @ 13:23 by Priyanka Castano) H/O mechanical aortic valve replacement (Chronic) CKD (chronic kidney disease), stage III (Chronic) Anemia (Chronic) Renal insufficiency (Chronic) Nonrheumatic mitral (valve) insufficiency (Chronic) Atherosclerotic heart disease of [place] coronary artery without angina pectoris (Chronic) CABG, MOLINA graft to LAD, SVG to OM 1, SVG to acute marginal; Primary pulmonary hypertension (Chronic) Aortic valve disease (Chronic) Sinus bradycardia (Chronic) Cardiac arrhythmia (Chronic) Abnormal electrocardiogram (Chronic) Aortocoronary bypass status (Chronic) CABG, MOLINA graft to LAD, SVG to OM 1, SVG to acute marginal; 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) Other nonspecific abnormal cardiovascular system function study (Chronic) Palpitations (Chronic) Nicotine abuse (Chronic) Diastolic dysfunction (Chronic) Bilateral carotid bruits (Chronic) Orthostatic hypotension (Chronic) Systolic CHF, chronic (Chronic) 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) Hypokalemia (Chronic) S/P CABG x 3 (Chronic) Gastrointestinal bleed (Chronic) Anemia due to blood loss, acute (Chronic) Chronic anticoagulation (Chronic) Chronic renal failure, stage 3 (moderate) (Chronic) CAD (coronary artery disease) (Chronic) History of aortic valve replacement with metallic valve (Chronic) History of CEA (carotid endarterectomy) (Chronic) FELICIA (renal artery stenosis) (Chronic) w stent HTN (hypertension) (Chronic) COPD (chronic obstructive pulmonary disease) (Chronic) Tobacco dependence (Chronic) Mitral valve insufficiency (Chronic) Tricuspid valve insufficiency (Chronic) HLD (hyperlipidemia) (Chronic) Diabetes (Chronic) Diastolic CHF, chronic (Chronic) Carotid artery disease (Chronic) Crohn's colitis (Chronic) - Past Surgical History Surgical History: coronary bypass surgery, - - CABG (MOLINA to LAD; SVG to OM; SVG to acute marginal) AVR (23 mm ON-X valve) - Social History Smoking Status: Heavy Smoker (>10/day) Alcohol: None Drugs: None - Family History Maternal Family History: Family History (Last Reviewed 02/16/18 @ 13:20 by Honey Oshea) Mother CVA (cerebral vascular accident) Hypertension Sister Myocardial infarction Breast cancer Sister CVA (cerebral vascular accident) Myocardial infarction Breast cancer Son Myocardial infarction CAD (coronary artery disease) History Items: No pertinent history Review of Systems Constitutional: Denies: Chills, Fever Eyes: Denies: Blurred vision, Pain, Vision Change HEENT: Denies: Head Aches, Sinus Congestion, Sinus Drainage Cardiovascular: Reports: Edema, Orthopnea. Denies: Chest Pain Respiratory: Denies: Cough, Shortness of breath at rest, Sputum production Gastrointestinal: Denies: Abdominal Pain, Nausea, Vomiting Genitourinary: Reports: Frequency. Denies: Dysuria, Hesitancy, Incontinence, Urgency Musculoskeletal: Denies: Joint Pain, Joint Tenderness Skin: Denies: Rash, Wounds Neurological: Denies: Numbness, Tingling, Focal weakness Psychiatric: Denies: Anxiety, Depression, Homicidal Ideations, Suicidal Ideations Hematologic/ Lymphatic: Denies: Easy Bruising, Easy Bleeding Patient Problems: Active and Suspected Problems (Last Reviewed 11/28/17 @ 13:23 by Priyanka Castano) CHF (congestive heart failure) (Acute) Hemoptysis (Acute) - Physical Exam General: Alert, Oriented x3, Cooperative HEENT: Atraumatic, PERRLA, EOMI Oral: Moist Mucosa Neck: Supple Lungs: Rhonchi - bilaterally, Wheezes Cardiovascular: Normal S1, Normal S2, - - valve click Abdomen: Bowel Sounds Present, Soft, Non Tender Extremities: Edema - 1+ LE Skin: No rashes Musculoskeletal: No Tenderness to Palpation of Joints or Extremities Vital Signs Temp Pulse Resp BP Pulse Ox 97.8 F 60 18 146/74 H 100 02/21/18 20:35 02/21/18 20:35 02/21/18 20:35 02/21/18 20:35 02/21/18 20:35 Oxygen Flow Rate (L/min) 2 Oxygen Delivery Method Nasal Cannula Weight: 77.7 kg Body Mass Index (BMI) 30.7 Intake and Output for Last 24 Hours 02/19/18 02/20/18 02/21/18 23:59 23:59 23:59 Intake Total 2005.0 / 2005.0 1808.4 / 1808.4 1159 / 1159 Output Total 700 / 700 650 / 650 Balance 1305.0 / 1305.0 1808.4 / 1808.4 509 / 509 Laboratory Tests Past 24 Hrs 02/21/18 02/21/18 08:05 08:05 PT 20.3 H INR 1.7 Sodium 139 Potassium 5.6 H Chloride 104 Carbon Dioxide 24.0 Anion Gap 11 BUN 89 H Creatinine 3.55 H Estim Creat Clear Calc 11.13 Est GFR (MDRD) Af Amer 16 L Est GFR (MDRD) Non-Af 14 L BUN/Creatinine Ratio 25.1 H Glucose 164 H Calcium 8.7 POC Glucose 02/21/18 02/21/18 02/21/18 16:30 11:06 06:51 POC Glucose 202 H 200 H 167 H 02/20/18 22:38 POC Glucose 253 H Assessment/Plan All Active Problems (Last Reviewed 11/28/17 @ 13:23 by Priyanka Castano) CHF (congestive heart failure) (Acute) Hemoptysis (Acute) Chronic combined systolic and diastolic CHF (congestive heart failure) (Acute) H/O aortic valve replacement (Resolved) WILLIAN (acute kidney injury) (Resolved) Abnormal cardiac enzyme level (Resolved) Chest pain (Resolved) Dehydration (Resolved) Hypokalemia (Resolved) Renal abscess (Resolved) Sinus bradycardia (Resolved) 1. Acute kidney injury on chronic kidney disease stage 3b. CKD is likely due to diabetic nephropathy. Suspect WILLIAN is due to contrast nephropathy ([facility] on 02/19/18). WILLIAN is less likely from CRS since she had been diuresed but still possible. Doubt other causes of WILLIAN at this time. Will recheck UA. Check urine indices. If urine output declines, will check renal US. No urgent need for dialysis. Recheck renal function and electrolytes in am. 2. Hyperkalemia. secondary to WILLIAN/CKD. Stop scheduled KCl. Recheck K level in am. 3. CAD with ischemic CMP/HFrEF. EF 35%. Was diuresed earlier during admission. Agree with holding diuretics for now since pt does not appear to be severely volume OL or decompensated. 4. Hx of hypomagensemia. Pt is on MagOx. Recheck Mg level in am since pt has WILLIAN. If Mg>2.5, stop MagOx.
[2018-02-21] MEDS: Zolpidem Tartrate 5 MG Tablet PO (21:15)
[2018-02-21 22:55] LABS: Bedside Glucose 202 mg/dL (70-110)
[2018-02-22] VITALS (14 sets, daily range): BP systolic 132–141; BP diastolic 53–75; PULSE 52–67; RESP 16–20; TEMP 36.4–36.7; O2SAT 95–100
[2018-02-22] MEDS: Levothyroxine 75 MCG Tablet PO (05:18)
[2018-02-22 06:07] LABS: Hematocrit 31.4 % (37-47); Mean Corp Hgb Conc 31.8 g/gl (32-36); Mean Corpuscular Hgb 32.8 pg (27.0-32.0); Mean Platelet Vol. 12.8 fl (6.2-12.0); Platelet Count 182 K/mm3 (150-450); RBC Distribution Width CV 14.2 % (11.6-14.6); RBC Distribution Width SD 53.3 fl (35.1-43.9); Red Blood Count 3.05 M/mm3 (4.2-5.4)
[2018-02-22 06:08] LABS: International Normalized Ratio 1.9; Prothrombin Time (Protime)PT. 21.5 SECONDS (11.7-14.9); Scan Indicated on CBC? Y/N NO
[2018-02-22 07:06] LABS: Bedside Glucose 87 mg/dL (70-110)
[2018-02-22] MEDS: Ipratropium/Albuterol Sulfate 3 ML AMPUL.NEB INHALATION (07:07)
[2018-02-22 07:20] LABS: Anion Gap 6 (5-15); BUN 94 mg/dL (7-18); Calcium,Total 8.5 mg/dL (8.5-10.1); Chloride 110 mmol/L (98-107); Creatinine, Serum 4.09 mg/dL (0.55-1.02); EST Glomerular Filtration Rate 11 mL/min (>60); Est Glom Filt Rate - Afr Amer 14 mL/min (>60); Estimated Creatinine Clearance 9.66 ml/min; Glucose 86 mg/dL (74-106); Magnesium 2.2 mg/dL (1.6-2.6); Potassium 6.7 mmol/L (3.5-5.1); Sodium Level 138 mmol/L (136-145)
[2018-02-22] MEDS: 0.9% NaCl Peripheral Flush Adult/Peds IV (09:29)
[2018-02-22] MEDS: 0.9% Normal Saline 1,000 ML 60 ML IV (09:30)
[2018-02-22] MEDS: Allopurinol 100 MG Tablet PO (09:30)
[2018-02-22] MEDS: predniSONE 20 MG Tablet 40 MG PO (09:30)
[2018-02-22] MEDS: Sodium Polystyrene Sulfonate 15 GM/60 ML UDC 30 GM PO ×2 (09:32→18:01)
[2018-02-22] MEDS: Calcitriol 0.25 MCG Capsule PO (11:07)
[2018-02-22] MEDS: Carvedilol 3.125 MG TABLET PO ×2 (11:07→21:11)
[2018-02-22 12:05] LABS: Bedside Glucose 135 mg/dL (70-110)
--- NOTE | 2018-02-22 12:28 | PCM.PROGNOTE ---
<Aditi Bethea - Last Filed: 02/22/18 12:40> Patient Problems: Active and Suspected Problems (Last Reviewed 11/28/17 @ 13:23 by Priyanka Castano) CHF (congestive heart failure) (Acute) Hemoptysis (Acute) Subjective: Patient seen and examined. Unhappy about not being discharged. Discussed with patient the danger of elevated potassium and also that her renal function is declining. Patient denies current complaints. Wishes to go home. - Physical Exam General: Alert, Oriented x3, Cooperative HEENT: Atraumatic, PERRLA, EOMI, Normocephalic Neck: Supple, No JVD, Negative Carotid Bruits Lungs: Clear to auscultation, Normal air movement Cardiovascular: Regular rate, Regular Rhythm, Normal S1, Normal S2, No murmurs Abdomen: Bowel Sounds Present, Soft, Non Tender, Non-Distended Extremities: No clubbing, No cyanosis, Edema - Bilateral lower extremity, right greater than left Skin: No rashes, No breakdown Musculoskeletal: No Tenderness to Palpation of Joints or Extremities Neurological: Cranial nerves II-XII grossly intact, Neuro grossly intact Psych/Mental Status: Normal Affect, Appropriate Vital Signs Temp Pulse Resp BP Pulse Ox 97.8 F 54 L 16 139/61 H 97 02/22/18 05:14 02/22/18 07:31 02/22/18 07:07 02/22/18 05:14 02/22/18 09:44 Oxygen Flow Rate (L/min) 2 Oxygen Delivery Method Room Air Weight: 173 lb 11.588 oz Body Mass Index (BMI) 30.7 Intake and Output for Last 24 Hours 02/20/18 02/21/18 02/22/18 23:59 23:59 23:59 Intake Total 1808.4 / 1808.4 1616 / 1616 321 / 321 Output Total 750 / 750 Balance 1808.4 / 1808.4 866 / 866 321 / 321 Laboratory Tests Past 24 Hrs 02/22/18 02/22/18 02/22/18 05:44 05:44 05:44 WBC 10.0 RBC 3.05 L Hgb 10.0 L Hct 31.4 L MCV 103.0 H MCH 32.8 H MCHC 31.8 L RDW 14.2 RDW Differential 53.3 H Plt Count 182 MPV 12.8 H PT 21.5 H INR 1.9 Sodium Cancelled Potassium Cancelled Chloride Cancelled Carbon Dioxide Cancelled Anion Gap Cancelled BUN Cancelled Creatinine Cancelled Estim Creat Clear Calc Cancelled Est GFR (MDRD) Af Amer Cancelled Est GFR (MDRD) Non-Af Cancelled BUN/Creatinine Ratio Cancelled Glucose Cancelled Calcium Cancelled Magnesium Cancelled 02/22/18 06:46 WBC RBC Hgb Hct MCV MCH MCHC RDW RDW Differential Plt Count MPV PT INR Sodium 138 Potassium 6.7 H* Chloride 110 H Carbon Dioxide 22.0 Anion Gap 6 BUN 94 H Creatinine 4.09 H Estim Creat Clear Calc 9.66 Est GFR (MDRD) Af Amer 14 L Est GFR (MDRD) Non-Af 11 L BUN/Creatinine Ratio 23.0 H Glucose 86 Calcium 8.5 Magnesium 2.2 POC Glucose 02/22/18 02/22/18 02/21/18 11:03 06:50 21:05 POC Glucose 135 H 87 202 H 02/21/18 16:30 POC Glucose 202 H Medical Necessity - Tobacco Use Smoking Status: Heavy Smoker (>10/day) Tobacco Use: Cigarettes Assessment/Plan All Active Problems (Last Reviewed 11/28/17 @ 13:23 by Priyanka Castano) CHF (congestive heart failure) (Acute) Hemoptysis (Acute) Chronic combined systolic and diastolic CHF (congestive heart failure) (Acute) H/O aortic valve replacement (Resolved) WILLIAN (acute kidney injury) (Resolved) Abnormal cardiac enzyme level (Resolved) Chest pain (Resolved) Dehydration (Resolved) Hypokalemia (Resolved) Renal abscess (Resolved) Sinus bradycardia (Resolved) 1. Acute on chronic systolic CHF-cardiology following. Lasix drip discontinued due to worsening renal function. Echocardiogram shows an EF of 35%, moderate mitral valve insufficiency, moderate to severe tricuspid valve insufficiency, stable appearing mechanical aortic valve, mild pulmonic valve insufficiency, RVSP estimated to be 78 mmHg. Strict I&O. Daily weight. Cardiac catheterization 02/19/2018 demonstrated severe pulmonary hypertension, multivessel CAD, patent MOLINA to LAD, patent SVG to OM, SVG to RCA patent. Stable appearing aortic valve. Patient to continue with medical therapy. Will need nephro recommendations on diuretic regimen at [place]. Patient previously on bumetanide 2mg PO BID and torsemide 20mg PO TID. 2. Presumed COPD exacerbation-no prior formal testing. Patient will require PFTs as outpatient with pulmonary medicine. Prednisone 40 mg x 5 days with DC date 02/25/18. Albuterol and DuoNeb aerosols. 3. Acute hypoxic respiratory insufficiency secondary to #1/#2. Continue supplement oxygen to maintain O2 at or above 90%. 4. Hemoptysis, intermittent-pulmonary medicine consulted. CT of chest shows groundglass opacities bilateral lungs. Suggestive of pulmonary edema.. No further hemoptysis during admission. Resume Coumadin. Outpatient follow-up with pulmonary medicine. 4. Acute kidney injury with associated hyperkalemia on chronic kidney disease stage III- History of renal artery stenosis status post stent. Nephrology consulted. Suspects acute renal failure secondary to contrast nephropathy. Renal ultrasound pending. Patient received Kayexalate 30gm X1. Trend BMP. Continue gentle hydration. No need for dialysis at this time per nephrology. 5. CAD status post CABG- continue statin. Not on BB. 6. History of CVA-residual right eye blindness. Continue statin, Coumadin. 7. History of carotid artery disease status post CEA 8. Chronic macrocytic anemia-slightly below baseline. Trend CBC. 9. Type 2 diabetes mellitus-home oral regimen on hold. Accu-Cheks before meals at bedtime with sliding scale insulin. Lantus 20 units twice daily. Hemoglobin A1c 11/25/16 8.2%. 10. Status post mechanical aortic valve replacement-on chronic anticoagulation with Coumadin. GI bleed earlier this year. 11. Hyperlipidemia-continue statin. 12. Hypothyroidism-continue Synthroid regimen. 13. Gout- Continue allopurinol. 14. Depression/anxiety-continue home sertraline regimen. 15. History of breast cancer status post mastectomy 16. Tobacco dependence-encourage smoking cessation, nicotine replacement patch if desired. DVT prophylaxis-heparin drip, Coumadin This patient was seen by SILAS Kyle under the supervision of Dr. Garcia. <Guilherme Garcia - Last Filed: 02/22/18 12:47> - Physical Exam Vital Signs Temp Pulse Resp BP Pulse Ox 98.1 F 63 16 136/69 H 97 02/22/18 10:00 02/22/18 12:01 02/22/18 10:00 02/22/18 10:00 02/22/18 10:00 Oxygen Flow Rate (L/min) 2 Oxygen Delivery Method Room Air Weight: 78.8 kg Body Mass Index (BMI) 30.7 Intake and Output for Last 24 Hours 02/20/18 02/21/18 02/22/18 23:59 23:59 23:59 Intake Total 1808.4 / 1808.4 1616 / 1616 321 / 321 Output Total 750 / 750 Balance 1808.4 / 1808.4 866 / 866 321 / 321 Laboratory Tests Past 24 Hrs 02/22/18 02/22/18 02/22/18 05:44 05:44 05:44 WBC 10.0 RBC 3.05 L Hgb 10.0 L Hct 31.4 L MCV 103.0 H MCH 32.8 H MCHC 31.8 L RDW 14.2 RDW Differential 53.3 H Plt Count 182 MPV 12.8 H PT 21.5 H INR 1.9 Sodium Cancelled Potassium Cancelled Chloride Cancelled Carbon Dioxide Cancelled Anion Gap Cancelled BUN Cancelled Creatinine Cancelled Estim Creat Clear Calc Cancelled Est GFR (MDRD) Af Amer Cancelled Est GFR (MDRD) Non-Af Cancelled BUN/Creatinine Ratio Cancelled Glucose Cancelled Calcium Cancelled Magnesium Cancelled 02/22/18 06:46 WBC RBC Hgb Hct MCV MCH MCHC RDW RDW Differential Plt Count MPV PT INR Sodium 138 Potassium 6.7 H* Chloride 110 H Carbon Dioxide 22.0 Anion Gap 6 BUN 94 H Creatinine 4.09 H Estim Creat Clear Calc 9.66 Est GFR (MDRD) Af Amer 14 L Est GFR (MDRD) Non-Af 11 L BUN/Creatinine Ratio 23.0 H Glucose 86 Calcium 8.5 Magnesium 2.2 POC Glucose 02/22/18 02/22/18 02/21/18 11:03 06:50 21:05 POC Glucose 135 H 87 202 H 02/21/18 16:30 POC Glucose 202 H Assessment/Plan This patient was seen in conjunction with SILAS Kyle. I have independently interviewed and examined the patient and reviewed pertinent historical, laboratory, and other data. Please refer to SILAS Kyle note for details of this patient's presentation, findings, and recommendations. I have reviewed SILAS Kyle note and concur with documented findings. In brief, 72-year-old lady with multiple comorbidities including mechanical aortic valve on systemic anticoagulation with Coumadin who presented with shortness of breath as well as hemoptysis and assessment of acute on chronic congestive heart failure made admitted to a monitored bed for further management 02/18/18: Plan for patient to undergo left heart catheterization placed on hold in view of patient being on unable to lay flat on the table. Still remains on Lasix. -Patient's 2D echo demonstrated ejection fraction of 35% with 3+ dry cuspid valve regurgitation, 2+ mitral valve regurgitation and RVSP of 78 mmHg 02/19/2018: Patient scheduled to undergo left heart catheterization 02/20/18. Patient left heart catheterization performed the day prior did not demonstrate any hemodynamically significant lesions necessitating intervention. Case was discussed with Dr. Medina who recommended optimization of medical therapy 02/21/2018. There is been significant worsening of patient's kidney function plan to discharge patient subsequently deferred. Patient started on gentle IV fluids with consultation placed to nephrology creatinine on admission was 1.7 to 3.55 today 02/22/2018: Patient kidney function continues to worsen with creatinine to 4.09 as of 02/22/2018. Potassium 6.7 consultation was placed to nephrology in view of patient worsening kidney function. Patient did receive Kayexalate on the morning of 02/22/2018 Physical Examination: GENERAL: cooperative HEENT: Atraumatic; EYES; Anicteric, Normal Conjunctiva NECK; supple, normal thyroid, RESPIRATORY: Diminished to auscultation bilaterally, CARDIOVASCULAR: Regular S1 S2, systolic click GI: soft, non-tender, normoactive bowel sounds, : No Renal angle tenderness; No boothe PSYCH; Normal affect Assessment: 1. Acute diastolic congestive heart failure EF 50% 2. Hemoptysis in the context of systemic anticoagulation use 3. Status post mechanical aortic valve replacement 4. CAD with previous CABG 5. Diabetes mellitus type 2 with complications including diabetic nephropathy 6. Chronic kidney disease stage III secondary to diabetic nephropathy 7. COPD not in exacerbation 8. Dyslipidemia 9. History of CVA with residual right-sided blindness 10. History of renal atrophy stenosis with subsequent stent placement 11. Carotid artery disease status post carotid endarterectomy 12. Hypothyroidism 13. History of breast CA status post mastectomy has since remained in remission 14. Anxiety disorder 15. Tobacco dependence 16. DVT prophylaxis 17. Valvular heart disease including tricuspid and mitral valve regurgitation 18. Pulmonary hypertension with RSV P of 78mmHg 19. Acute kidney injury multifactorial including diuretic use as well as possible contrast-induced nephropathy consultation placed to nephrology 20. Hyperkalemia secondary to #19 Recommendations: 1. I have discussed the results of my overview and impressions with the patient 2. Options for management were reviewed Laboratory Results 02/22/18 02/22/18 02/22/18 11:03 06:50 06:46 WBC RBC Hgb Hct MCV MCH MCHC RDW RDW Differential Plt Count MPV PT INR Sodium 138 Potassium 6.7 H* Chloride 110 H Carbon Dioxide 22.0 Anion Gap 6 BUN 94 H Creatinine 4.09 H Estim Creat Clear Calc 9.66 Est GFR (MDRD) Af Amer 14 L Est GFR (MDRD) Non-Af 11 L BUN/Creatinine Ratio 23.0 H Glucose 86 Calcium 8.5 Magnesium 2.2 POC Glucose 135 H 87 Active Medications Albuterol/Ipratropium (Duoneb) 3 ml INHALATION Q4HWA.RT [facility] Last Admin: 02/22/18 11:00 Dose: Not Given Allopurinol (Zyloprim) 100 mg PO DAILY@0800 [facility] Last Admin: 02/22/18 09:30 Dose: 100 mg Atorvastatin Calcium (Lipitor) 40 mg PO QHS [facility] Last Admin: 02/21/18 21:08 Dose: 40 mg Calcitriol (Rocaltrol) 0.25 mcg PO DAILY [facility] Last Admin: 02/22/18 11:07 Dose: 0.25 mcg Carvedilol (Coreg) 3.125 mg PO BID [facility] Last Admin: 02/22/18 11:07 Dose: 3.125 mg Ergocalciferol (Vitamin D) 50,000 unit PO Q30D@1000 [facility] Heparin Sodium (Beef Lung) (Heparin 500 Unit/5 Ml (100/Ml)) 500 unit IV UD PRN PRN Reason: HEPARIN FLUSH Heparin Sodium (Porcine) (Heparin Na) 0 unit IV UD PRN; Protocol Heparin Sodium/Dextrose () 25,000 units in 250 mls @ 11 mls/hr IV .[id number] TIARA; Protocol Sodium Chloride () 1,000 mls @ 60 mls/hr IV .[id number] [facility] Last Admin: 02/22/18 09:30 Dose: 60 mls/hr Insulin Glargine (Lantus (Bkc)) 20 units SC BID [facility] Last Admin: 02/22/18 11:04 Dose: Not Given Insulin Human Lispro (Humalog Kwikpen (Bk)) 0 unit SC [facility]; Protocol Last Admin: 02/22/18 11:04 Dose: Not Given Levothyroxine Sodium (Synthroid) 75 mcg PO DAILY@0600 [facility] Last Admin: 02/22/18 05:18 Dose: 75 mcg Magnesium Hydroxide (Milk Of Magnesia) 30 ml PO DAILY PRN PRN Reason: Constipation Ondansetron HCl (Zofran) 4 mg IV Q6H PRN PRN PRN Reason: NAUSEA Prednisone () 40 mg PO DAILY@0800 [facility] Stop: 02/25/18 08:31 Last Admin: 02/22/18 09:30 Dose: 40 mg Sertraline HCl (Zoloft) 100 mg PO QHS [facility] Last Admin: 02/21/18 21:08 Dose: 100 mg Sodium Chloride () 5 - 30 ml IV UD PRN PRN Reason: SALINE FLUSH Last Admin: 02/22/18 09:29 Dose: 10 ml Warfarin Sodium (Coumadin (Pbkc)) 2 mg PO DAILY@1700 [facility] Last Admin: 02/21/18 16:58 Dose: 2 mg Zolpidem Tartrate (Ambien (Generic)) 5 mg PO QHS PRN PRN PRN Reason: SLEEP Last Admin: 02/21/18 21:15 Dose: 5 mg Code Visit Inpatient E&M: 22004 [facility] Hosp L3
--- NOTE | 2018-02-22 12:32 | PCM.PN.BLA ---
Progress Note The plan for her was to go home yesterday. However with her contrast-induced nephropathy and creatinine still climbing up, she was kept overnight. Patient still wants to go home today. She is very upset that she has to stay in the hospital. Denies any other complaint besides frustration with the fact that she has to stay in the hospital longer. Nephrology on consult for contrast-induced nephropathy on top of her history of chronic renal insufficiency. They are managing her fluid status and diuretics
--- NOTE | 2018-02-22 12:40 | PN_ITS ---
<Aditi Bethea - Last Filed: 02/22/18 12:40> Patient Problems: Active and Suspected Problems (Last Reviewed 11/28/17 @ 13:23 by Priyanka Castano) CHF (congestive heart failure) (Acute) Hemoptysis (Acute) Subjective: Patient seen and examined. Unhappy about not being discharged. Discussed with patient the danger of elevated potassium and also that her renal function is declining. Patient denies current complaints. Wishes to go home. - Physical Exam General: Alert, Oriented x3, Cooperative HEENT: Atraumatic, PERRLA, EOMI, Normocephalic Neck: Supple, No JVD, Negative Carotid Bruits Lungs: Clear to auscultation, Normal air movement Cardiovascular: Regular rate, Regular Rhythm, Normal S1, Normal S2, No murmurs Abdomen: Bowel Sounds Present, Soft, Non Tender, Non-Distended Extremities: No clubbing, No cyanosis, Edema - Bilateral lower extremity, right greater than left Skin: No rashes, No breakdown Musculoskeletal: No Tenderness to Palpation of Joints or Extremities Neurological: Cranial nerves II-XII grossly intact, Neuro grossly intact Psych/Mental Status: Normal Affect, Appropriate Vital Signs Temp Pulse Resp BP Pulse Ox 97.8 F 54 L 16 139/61 H 97 02/22/18 05:14 02/22/18 07:31 02/22/18 07:07 02/22/18 05:14 02/22/18 09:44 Oxygen Flow Rate (L/min) 2 Oxygen Delivery Method Room Air Weight: 173 lb 11.588 oz Body Mass Index (BMI) 30.7 Intake and Output for Last 24 Hours 02/20/18 02/21/18 02/22/18 23:59 23:59 23:59 Intake Total 1808.4 / 1808.4 1616 / 1616 321 / 321 Output Total 750 / 750 Balance 1808.4 / 1808.4 866 / 866 321 / 321 Laboratory Tests Past 24 Hrs 02/22/18 02/22/18 02/22/18 05:44 05:44 05:44 WBC 10.0 RBC 3.05 L Hgb 10.0 L Hct 31.4 L MCV 103.0 H MCH 32.8 H MCHC 31.8 L RDW 14.2 RDW Differential 53.3 H Plt Count 182 MPV 12.8 H PT 21.5 H INR 1.9 Sodium Cancelled Potassium Cancelled Chloride Cancelled Carbon Dioxide Cancelled Anion Gap Cancelled BUN Cancelled Creatinine Cancelled Estim Creat Clear Calc Cancelled Est GFR (MDRD) Af Amer Cancelled Est GFR (MDRD) Non-Af Cancelled BUN/Creatinine Ratio Cancelled Glucose Cancelled Calcium Cancelled Magnesium Cancelled 02/22/18 06:46 WBC RBC Hgb Hct MCV MCH MCHC RDW RDW Differential Plt Count MPV PT INR Sodium 138 Potassium 6.7 H* Chloride 110 H Carbon Dioxide 22.0 Anion Gap 6 BUN 94 H Creatinine 4.09 H Estim Creat Clear Calc 9.66 Est GFR (MDRD) Af Amer 14 L Est GFR (MDRD) Non-Af 11 L BUN/Creatinine Ratio 23.0 H Glucose 86 Calcium 8.5 Magnesium 2.2 POC Glucose 02/22/18 02/22/18 02/21/18 11:03 06:50 21:05 POC Glucose 135 H 87 202 H 02/21/18 16:30 POC Glucose 202 H Medical Necessity - Tobacco Use Smoking Status: Heavy Smoker (>10/day) Tobacco Use: Cigarettes Assessment/Plan All Active Problems (Last Reviewed 11/28/17 @ 13:23 by Priyanka Castano) CHF (congestive heart failure) (Acute) Hemoptysis (Acute) Chronic combined systolic and diastolic CHF (congestive heart failure) (Acute) H/O aortic valve replacement (Resolved) WILLIAN (acute kidney injury) (Resolved) Abnormal cardiac enzyme level (Resolved) Chest pain (Resolved) Dehydration (Resolved) Hypokalemia (Resolved) Renal abscess (Resolved) Sinus bradycardia (Resolved) 1. Acute on chronic systolic CHF-cardiology following. Lasix drip discontinued due to worsening renal function. Echocardiogram shows an EF of 35%, moderate mitral valve insufficiency, moderate to severe tricuspid valve insufficiency, stable appearing mechanical aortic valve, mild pulmonic valve insufficiency, RVSP estimated to be 78 mmHg. Strict I&O. Daily weight. Cardiac catheterization 02/19/2018 demonstrated severe pulmonary hypertension, multivessel CAD, patent MOLINA to LAD, patent SVG to OM, SVG to RCA patent. Stable appearing aortic valve. Patient to continue with medical therapy. Will need nephro recommendations on diuretic regimen at [place]. Patient previously on bumetanide 2mg PO BID and torsemide 20mg PO TID. 2. Presumed COPD exacerbation-no prior formal testing. Patient will require PFTs as outpatient with pulmonary medicine. Prednisone 40 mg x 5 days with DC date 02/25/18. Albuterol and DuoNeb aerosols. 3. Acute hypoxic respiratory insufficiency secondary to #1/#2. Continue supplement oxygen to maintain O2 at or above 90%. 4. Hemoptysis, intermittent-pulmonary medicine consulted. CT of chest shows groundglass opacities bilateral lungs. Suggestive of pulmonary edema.. No further hemoptysis during admission. Resume Coumadin. Outpatient follow-up with pulmonary medicine. 4. Acute kidney injury with associated hyperkalemia on chronic kidney disease stage III- History of renal artery stenosis status post stent. Nephrology consulted. Suspects acute renal failure secondary to contrast nephropathy. Renal ultrasound pending. Patient received Kayexalate 30gm X1. Trend BMP. Continue gentle hydration. No need for dialysis at this time per nephrology. 5. CAD status post CABG- continue statin. Not on BB. 6. History of CVA-residual right eye blindness. Continue statin, Coumadin. 7. History of carotid artery disease status post CEA 8. Chronic macrocytic anemia-slightly below baseline. Trend CBC. 9. Type 2 diabetes mellitus-home oral regimen on hold. Accu-Cheks before meals at bedtime with sliding scale insulin. Lantus 20 units twice daily. Hemoglobin A1c 11/25/16 8.2%. 10. Status post mechanical aortic valve replacement-on chronic anticoagulation with Coumadin. GI bleed earlier this year. 11. Hyperlipidemia-continue statin. 12. Hypothyroidism-continue Synthroid regimen. 13. Gout- Continue allopurinol. 14. Depression/anxiety-continue home sertraline regimen. 15. History of breast cancer status post mastectomy 16. Tobacco dependence-encourage smoking cessation, nicotine replacement patch if desired. DVT prophylaxis-heparin drip, Coumadin This patient was seen by SILAS Kyle under the supervision of Dr. Garcia. <Guilherme Garcia - Last Filed: 02/22/18 12:47> - Physical Exam Vital Signs Temp Pulse Resp BP Pulse Ox 98.1 F 63 16 136/69 H 97 02/22/18 10:00 02/22/18 12:01 02/22/18 10:00 02/22/18 10:00 02/22/18 10:00 Oxygen Flow Rate (L/min) 2 Oxygen Delivery Method Room Air Weight: 78.8 kg Body Mass Index (BMI) 30.7 Intake and Output for Last 24 Hours 02/20/18 02/21/18 02/22/18 23:59 23:59 23:59 Intake Total 1808.4 / 1808.4 1616 / 1616 321 / 321 Output Total 750 / 750 Balance 1808.4 / 1808.4 866 / 866 321 / 321 Laboratory Tests Past 24 Hrs 02/22/18 02/22/18 02/22/18 05:44 05:44 05:44 WBC 10.0 RBC 3.05 L Hgb 10.0 L Hct 31.4 L MCV 103.0 H MCH 32.8 H MCHC 31.8 L RDW 14.2 RDW Differential 53.3 H Plt Count 182 MPV 12.8 H PT 21.5 H INR 1.9 Sodium Cancelled Potassium Cancelled Chloride Cancelled Carbon Dioxide Cancelled Anion Gap Cancelled BUN Cancelled Creatinine Cancelled Estim Creat Clear Calc Cancelled Est GFR (MDRD) Af Amer Cancelled Est GFR (MDRD) Non-Af Cancelled BUN/Creatinine Ratio Cancelled Glucose Cancelled Calcium Cancelled Magnesium Cancelled 02/22/18 06:46 WBC RBC Hgb Hct MCV MCH MCHC RDW RDW Differential Plt Count MPV PT INR Sodium 138 Potassium 6.7 H* Chloride 110 H Carbon Dioxide 22.0 Anion Gap 6 BUN 94 H Creatinine 4.09 H Estim Creat Clear Calc 9.66 Est GFR (MDRD) Af Amer 14 L Est GFR (MDRD) Non-Af 11 L BUN/Creatinine Ratio 23.0 H Glucose 86 Calcium 8.5 Magnesium 2.2 POC Glucose 02/22/18 02/22/18 02/21/18 11:03 06:50 21:05 POC Glucose 135 H 87 202 H 02/21/18 16:30 POC Glucose 202 H Assessment/Plan This patient was seen in conjunction with SILAS Kyle. I have independently interviewed and examined the patient and reviewed pertinent historical, laboratory, and other data. Please refer to MARCIA Kyle note for details of this patient's presentation, findings, and recommendations. I have reviewed SILAS Kyle note and concur with documented findings. In brief, 72-year-old lady with multiple comorbidities including mechanical aortic valve on systemic anticoagulation with Coumadin who presented with shortness of breath as well as hemoptysis and assessment of acute on chronic congestive heart failure made admitted to a monitored bed for further management 02/18/18: Plan for patient to undergo left heart catheterization placed on hold in view of patient being on unable to lay flat on the table. Still remains on Lasix. -Patient's 2D echo demonstrated ejection fraction of 35% with 3+ dry cuspid valve regurgitation, 2+ mitral valve regurgitation and RVSP of 78 mmHg 02/19/2018: Patient scheduled to undergo left heart catheterization 02/20/18. Patient left heart catheterization performed the day prior did not demonstrate any hemodynamically significant lesions necessitating intervention. Case was discussed with Dr. Medina who recommended optimization of medical therapy 02/21/2018. There is been significant worsening of patient's kidney function plan to discharge patient subsequently deferred. Patient started on gentle IV fluids with consultation placed to nephrology creatinine on admission was 1.7 to 3.55 today 02/22/2018: Patient kidney function continues to worsen with creatinine to 4.09 as of 02/22/2018. Potassium 6.7 consultation was placed to nephrology in view of patient worsening kidney function. Patient did receive Kayexalate on the morning of 02/22/2018 Physical Examination: GENERAL: cooperative HEENT: Atraumatic; EYES; Anicteric, Normal Conjunctiva NECK; supple, normal thyroid, RESPIRATORY: Diminished to auscultation bilaterally, CARDIOVASCULAR: Regular S1 S2, systolic click GI: soft, non-tender, normoactive bowel sounds, : No Renal angle tenderness; No boothe PSYCH; Normal affect Assessment: 1. Acute diastolic congestive heart failure EF 50% 2. Hemoptysis in the context of systemic anticoagulation use 3. Status post mechanical aortic valve replacement 4. CAD with previous CABG 5. Diabetes mellitus type 2 with complications including diabetic nephropathy 6. Chronic kidney disease stage III secondary to diabetic nephropathy 7. COPD not in exacerbation 8. Dyslipidemia 9. History of CVA with residual right-sided blindness 10. History of renal atrophy stenosis with subsequent stent placement 11. Carotid artery disease status post carotid endarterectomy 12. Hypothyroidism 13. History of breast CA status post mastectomy has since remained in remission 14. Anxiety disorder 15. Tobacco dependence 16. DVT prophylaxis 17. Valvular heart disease including tricuspid and mitral valve regurgitation 18. Pulmonary hypertension with RSV P of 78mmHg 19. Acute kidney injury multifactorial including diuretic use as well as possible contrast-induced nephropathy consultation placed to nephrology 20. Hyperkalemia secondary to #19 Recommendations: 1. I have discussed the results of my overview and impressions with the patient 2. Options for management were reviewed Laboratory Results 02/22/18 02/22/18 02/22/18 11:03 06:50 06:46 WBC RBC Hgb Hct MCV MCH MCHC RDW RDW Differential Plt Count MPV PT INR Sodium 138 Potassium 6.7 H* Chloride 110 H Carbon Dioxide 22.0 Anion Gap 6 BUN 94 H Creatinine 4.09 H Estim Creat Clear Calc 9.66 Est GFR (MDRD) Af Amer 14 L Est GFR (MDRD) Non-Af 11 L BUN/Creatinine Ratio 23.0 H Glucose 86 Calcium 8.5 Magnesium 2.2 POC Glucose 135 H 87 Active Medications Albuterol/Ipratropium (Duoneb) 3 ml INHALATION Q4HWA.RT [facility] Last Admin: 02/22/18 11:00 Dose: Not Given Allopurinol (Zyloprim) 100 mg PO DAILY@0800 [facility] Last Admin: 02/22/18 09:30 Dose: 100 mg Atorvastatin Calcium (Lipitor) 40 mg PO QHS [facility] Last Admin: 02/21/18 21:08 Dose: 40 mg Calcitriol (Rocaltrol) 0.25 mcg PO DAILY [facility] Last Admin: 02/22/18 11:07 Dose: 0.25 mcg Carvedilol (Coreg) 3.125 mg PO BID [facility] Last Admin: 02/22/18 11:07 Dose: 3.125 mg Ergocalciferol (Vitamin D) 50,000 unit PO Q30D@1000 [facility] Heparin Sodium (Beef Lung) (Heparin 500 Unit/5 Ml (100/Ml)) 500 unit IV UD PRN PRN Reason: HEPARIN FLUSH Heparin Sodium (Porcine) (Heparin Na) 0 unit IV UD PRN; Protocol Heparin Sodium/Dextrose () 25,000 units in 250 mls @ 11 mls/hr IV .[id number]; Protocol Sodium Chloride () 1,000 mls @ 60 mls/hr IV .[id number] [facility] Last Admin: 02/22/18 09:30 Dose: 60 mls/hr Insulin Glargine (Lantus (Bkc)) 20 units SC BID [facility] Last Admin: 02/22/18 11:04 Dose: Not Given Insulin Human Lispro (Humalog Kwikpen (Bk)) [address] [facility]; Protocol Last Admin: 02/22/18 11:04 Dose: Not Given Levothyroxine Sodium (Synthroid) 75 mcg PO DAILY@0600 [facility] Last Admin: 02/22/18 05:18 Dose: 75 mcg Magnesium Hydroxide (Milk Of Magnesia) 30 ml PO DAILY PRN PRN Reason: Constipation Ondansetron HCl (Zofran) 4 mg IV Q6H PRN PRN PRN Reason: NAUSEA Prednisone () 40 mg PO DAILY@0800 [facility] Stop: 02/25/18 08:31 Last Admin: 02/22/18 09:30 Dose: 40 mg Sertraline HCl (Zoloft) 100 mg PO QHS [facility] Last Admin: 02/21/18 21:08 Dose: 100 mg Sodium Chloride () 5 - 30 ml IV UD PRN PRN Reason: SALINE FLUSH Last Admin: 02/22/18 09:29 Dose: 10 ml Warfarin Sodium (Coumadin (Pbkc)) 2 mg PO DAILY@1700 [facility] Last Admin: 02/21/18 16:58 Dose: 2 mg Zolpidem Tartrate (Ambien (Generic)) 5 mg PO QHS PRN PRN PRN Reason: SLEEP Last Admin: 02/21/18 21:15 Dose: 5 mg Code Visit Inpatient E&M: [id number] [facility] [place] Hosp L3
[2018-02-22 15:13] LABS: Anion Gap 9 (5-15); BUN 95 mg/dL (7-18); BUN/Creat Ratio 22.5 RATIO (10-20); Calcium,Total 8.2 mg/dL (8.5-10.1); Chloride 108 mmol/L (98-107); Creatinine, Serum 4.22 mg/dL (0.55-1.02); EST Glomerular Filtration Rate 11 mL/min (>60); Est Glom Filt Rate - Afr Amer 13 mL/min (>60); Estimated Creatinine Clearance 9.36 ml/min; Glucose 216 mg/dL (74-106); Potassium 6.4 mmol/L (3.5-5.1); Sodium Level 138 mmol/L (136-145)
--- NOTE | 2018-02-22 15:38 | EKG12_ITS ---
Test Reason : Blood Pressure : / mmHG Vent. Rate : 051 BPM Atrial Rate : 051 BPM P-R Int : 180 ms QRS Dur : 108 ms QT Int : 464 ms P-R-T Axes : 029 -24 153 degrees QTc Int : 427 ms Sinus bradycardia Left ventricular hypertrophy with repolarization abnormality Abnormal ECG Confirmed by LUIS MIGUEL SAUCEDO, MUNIRA ([id number]), editor continuity and script NIKKI ESPINAL ([id number]) on 02/26/2018 11:39:36 AM Referred By: Odilon Anderson Confirmed By:MUNIRA BOLANOS MD
[2018-02-22] MEDS: Insulin Lispro 100 UNIT/ML INSULN.PEN SC ×2 (16:59→21:13)
[2018-02-22 17:30] LABS: Bedside Glucose 218 mg/dL (70-110)
--- NOTE | 2018-02-22 20:46 | PN.RENAL_ITS ---
Patient Problems: Active and Suspected Problems (Last Reviewed 11/28/17 @ 13:23 by Priyanka Castano) CHF (congestive heart failure) (Acute) Hemoptysis (Acute) Subjective: Following for WILLIAN on CKD. Pt is disappointed she did not get discharged but understands the seriousness of her current condition requires hospitalization. She denies SOB at rest. There is no increase in edema. Has occasional nausea. - Physical Exam General: Alert, Oriented x3 HEENT: Atraumatic Oral: Moist Mucosa Lungs: Diminished - at bases Cardiovascular: Normal S1, Normal S2, Murmur - 3/6, - - valve click Abdomen: Bowel Sounds Present, Soft, Non Tender Extremities: Edema - R foot Vital Signs Temp Pulse Resp BP Pulse Ox 97.9 F 57 L 17 132/75 H 95 02/22/18 16:00 02/22/18 19:00 02/22/18 16:00 02/22/18 16:00 02/22/18 16:00 Oxygen Flow Rate (L/min) 2 Oxygen Delivery Method Room Air Weight: 78.8 kg Body Mass Index (BMI) 30.7 Intake and Output for Last 24 Hours 02/20/18 02/21/18 02/22/18 23:59 23:59 23:59 Intake Total 1808.4 / 1808.4 1616 / 1616 1333 / 1333 Output Total 750 / 750 600 / 600 Balance 1808.4 / 1808.4 866 / 866 733 / 733 Laboratory Tests Past 24 Hrs 02/22/18 02/22/18 02/22/18 05:44 05:44 05:44 WBC 10.0 RBC 3.05 L Hgb 10.0 L Hct 31.4 L MCV 103.0 H MCH 32.8 H MCHC 31.8 L RDW 14.2 RDW Differential 53.3 H Plt Count 182 MPV 12.8 H PT 21.5 H INR 1.9 Sodium Cancelled Potassium Cancelled Chloride Cancelled Carbon Dioxide Cancelled Anion Gap Cancelled BUN Cancelled Creatinine Cancelled Estim Creat Clear Calc Cancelled Est GFR (MDRD) Af Amer Cancelled Est GFR (MDRD) Non-Af Cancelled BUN/Creatinine Ratio Cancelled Glucose Cancelled Calcium Cancelled Magnesium Cancelled 02/22/18 02/22/18 06:46 14:05 WBC RBC Hgb Hct MCV MCH MCHC RDW RDW Differential Plt Count MPV PT INR Sodium 138 138 Potassium 6.7 H* 6.4 H* Chloride 110 H 108 H Carbon Dioxide 22.0 21.0 Anion Gap 6 9 BUN 94 H 95 H Creatinine 4.09 H 4.22 H Estim Creat Clear Calc 9.66 9.36 Est GFR (MDRD) Af Amer 14 L 13 L Est GFR (MDRD) Non-Af 11 L 11 L BUN/Creatinine Ratio 23.0 H 22.5 H Glucose 86 216 H Calcium 8.5 8.2 L Magnesium 2.2 POC Glucose 02/22/18 02/22/18 02/22/18 16:57 11:03 06:50 POC Glucose 218 H 135 H 87 02/21/18 21:05 POC Glucose 202 H Medical Necessity - Tobacco Use Smoking Status: Heavy Smoker (>10/day) Tobacco Use: Cigarettes Assessment/Plan All Active Problems (Last Reviewed 11/28/17 @ 13:23 by Priyanka Castano) CHF (congestive heart failure) (Acute) Hemoptysis (Acute) Chronic combined systolic and diastolic CHF (congestive heart failure) (Acute) H/O aortic valve replacement (Resolved) WILLIAN (acute kidney injury) (Resolved) Abnormal cardiac enzyme level (Resolved) Chest pain (Resolved) Dehydration (Resolved) Hypokalemia (Resolved) Renal abscess (Resolved) Sinus bradycardia (Resolved) 1. Acute kidney injury on chronic kidney disease stage 3b. CKD is likely due to diabetic nephropathy. WILLIAN is due to contrast nephropathy ([facility] on 02/19/18). WILLIAN is less likely from CRS since she had been diuresed but still possible. Doubt other causes of WILLIAN at this time. Although SCr has increased in the last 24hrs, hopefully it is plateauing. Will recheck UA. Check urine indices. If urine output declines, will check renal US (so far, she is not oliguric). No urgent need for dialysis. Recheck renal function and electrolytes in am. 2. Hyperkalemia. secondary to WILLIAN/CKD. Stopped scheduled KCl on 02/21/18. S/p 2 doses of Kayexalate today. Recheck K level in am. 3. CAD with ischemic CMP/HFrEF. EF 35%. Was diuresed earlier during admission. Agree with holding diuretics for now since pt does not appear to be severely v olume overloaded or decompensated. 4. Hx of hypomagensemia. Mg 2.2. Pt is on MagOx. Agree with stopping MagOx for now because of WILLIAN.
[2018-02-22] MEDS: Atorvastatin Calcium 40 MG Tablet PO (21:11)
[2018-02-22] MEDS: Sertraline 100 MG Tablet PO (21:11)
[2018-02-22] MEDS: Zolpidem Tartrate 5 MG Tablet PO (21:18)
[2018-02-22 21:35] LABS: Bedside Glucose 273 mg/dL (70-110)
[2018-02-23] VITALS (8 sets, daily range): BP systolic 124–139; BP diastolic 48–50; PULSE 46–52; RESP 18; TEMP 36.1–36.8; O2SAT 96–98
[2018-02-23] MEDS: Acetaminophen 325 MG Tablet 650 MG PO (00:15)
[2018-02-23 03:36] LABS: Bedside Glucose 130 mg/dL (70-110)
[2018-02-23] MEDS: Levothyroxine 75 MCG Tablet PO (05:08)
[2018-02-23 06:40] LABS: Bedside Glucose 103 mg/dL (70-110)
[2018-02-23 06:53] LABS: Hematocrit 30.3 % (37-47); Hemoglobin 9.6 g/dl (12.0-15.0); Mean Corp Hgb Conc 31.7 g/gl (32-36); Mean Corpuscular Hgb 32.4 pg (27.0-32.0); Mean Corpuscular Volume 102.4 fL (81-99); Mean Platelet Vol. 12.4 fl (6.2-12.0); Platelet Count 193 K/mm3 (150-450); RBC Distribution Width CV 14.2 % (11.6-14.6); Red Blood Count 2.96 M/mm3 (4.2-5.4)
[2018-02-23 06:58] LABS: Prothrombin Time (Protime)PT. 22.9 SECONDS (11.7-14.9)
[2018-02-23 07:00] LABS: Scan Indicated on CBC? Y/N NO
[2018-02-23 07:10] LABS: Anion Gap 13 (5-15); BUN 102 mg/dL (7-18); BUN/Creat Ratio 24.6 RATIO (10-20); Calcium,Total 8.3 mg/dL (8.5-10.1); Chloride 110 mmol/L (98-107); Creatinine, Serum 4.15 mg/dL (0.55-1.02); EST Glomerular Filtration Rate 11 mL/min (>60); Est Glom Filt Rate - Afr Amer 14 mL/min (>60); Estimated Creatinine Clearance 9.52 ml/min; Glucose 90 mg/dL (74-106); Magnesium 2.2 mg/dL (1.6-2.6); Potassium 4.2 mmol/L (3.5-5.1); Sodium Level 143 mmol/L (136-145)
[2018-02-23] MEDS: predniSONE 20 MG Tablet 40 MG PO (09:22)
[2018-02-23] MEDS: Allopurinol 100 MG Tablet PO (09:23)
[2018-02-23] MEDS: Calcitriol 0.25 MCG Capsule PO (09:25)
--- NOTE | 2018-02-23 10:20 | PCM.PN.REN ---
Patient Problems: Active and Suspected Problems (Last Reviewed 11/28/17 @ 13:23 by Priyanka Castano) CHF (congestive heart failure) (Acute) Hemoptysis (Acute) Subjective: Pt wants to go home No SOB. Edema is stable No nausea No vomiting - Physical Exam General: Alert, Oriented x3 HEENT: Atraumatic Oral: Moist Mucosa Neck: Supple, No JVD Lungs: Clear to auscultation, Normal air movement, No rhonchi, No wheeze Cardiovascular: Regular rate, Regular Rhythm, Normal S1, Normal S2 Abdomen: Bowel Sounds Present, Soft, Non Tender Extremities: No clubbing, No cyanosis, Edema - + 2 edema of LE Musculoskeletal: No Tenderness to Palpation of Joints or Extremities, No Muscle Wasting Lymphatic: No Cervical, Supraclavicular, or Inguinal Adenopathy Neurological: Cranial nerves II-XII grossly intact, Neuro grossly intact Psych/Mental Status: Normal Affect Vital Signs Temp Pulse Resp BP Pulse Ox 97 F L 48 L 18 139/49 H 97 02/23/18 09:10 02/23/18 09:10 02/23/18 09:10 02/23/18 09:10 02/23/18 09:10 Oxygen Flow Rate (L/min) 2 Oxygen Delivery Method Room Air Weight: 78.8 kg Body Mass Index (BMI) 30.7 Intake and Output for Last 24 Hours 02/21/18 02/22/18 02/23/18 23:59 23:59 23:59 Intake Total 1616 / 1616 1333 / 1333 558 / 558 Output Total 750 / 750 600 / 600 2 / 2 Balance 866 / 866 733 / 733 556 / 556 Laboratory Tests Past 24 Hrs 02/22/18 02/23/18 02/23/18 14:05 06:32 06:32 WBC 7.0 RBC 2.96 L Hgb 9.6 L Hct 30.3 L MCV 102.4 H MCH 32.4 H MCHC 31.7 L RDW 14.2 RDW Differential 53.0 H Plt Count 193 MPV 12.4 H PT INR Sodium 138 143 Potassium 6.4 H* 4.2 Chloride 108 H 110 H Carbon Dioxide 21.0 20.0 L Anion Gap 9 13 BUN 95 H 102 H* Creatinine 4.22 H 4.15 H Estim Creat Clear Calc 9.36 9.52 Est GFR (MDRD) Af Amer 13 L 14 L Est GFR (MDRD) Non-Af 11 L 11 L BUN/Creatinine Ratio 22.5 H 24.6 H Glucose 216 H 90 Calcium 8.2 L 8.3 L Magnesium 2.2 02/23/18 06:32 WBC RBC Hgb Hct MCV MCH MCHC RDW RDW Differential Plt Count MPV PT 22.9 H INR 2.0 Sodium Potassium Chloride Carbon Dioxide Anion Gap BUN Creatinine Estim Creat Clear Calc Est GFR (MDRD) Af Amer Est GFR (MDRD) Non-Af BUN/Creatinine Ratio Glucose Calcium Magnesium POC Glucose 02/23/18 02/23/18 02/22/18 06:33 03:28 21:09 POC Glucose 103 130 H 273 H 02/22/18 02/22/18 16:57 11:03 POC Glucose 218 H 135 H Medical Necessity - Tobacco Use Smoking Status: Heavy Smoker (>10/day) Tobacco Use: Cigarettes Assessment/Plan All Active Problems (Last Reviewed 11/28/17 @ 13:23 by Priyanka Castano) CHF (congestive heart failure) (Acute) Hemoptysis (Acute) Chronic combined systolic and diastolic CHF (congestive heart failure) (Acute) H/O aortic valve replacement (Resolved) WILLIAN (acute kidney injury) (Resolved) Abnormal cardiac enzyme level (Resolved) Chest pain (Resolved) Dehydration (Resolved) Hypokalemia (Resolved) Renal abscess (Resolved) Sinus bradycardia (Resolved) 1. Acute kidney injury on chronic kidney disease stage 3b. CKD is likely due to diabetic nephropathy. WILLIAN is due to contrast nephropathy ([facility] on 02/19/18). Cr is plateauing.Last Cr trend 4.22->4.15 mg/dL. Non oliguric. UOP is 440 cc since 12 am No urgent need for dialysis. Recheck renal function and electrolytes in am. 2. Hyperkalemia. secondary to WILLIAN/CKD. Stopped scheduled KCl on 02/21/18. S/p 2 doses of Kayexalate 02/22 k is 4.2 this morning Recheck K level in am. 3. CAD with ischemic CMP/HFrEF. EF 35%. Was diuresed earlier during admission. Agree with holding diuretics for now since pt does not appear to be severely volume overloaded or decompensated. Ok to d/c patient from nephro stand point. Pt needs BMP in 2 days after discharge. Pt follows with Dr. Campos in outpatient renal clinic I asked the patient to follow with Dr. Campos LARRY after discharge Please resume Bumex home dose at discharge. Please avoid ACEI/ARB at discharge Will d/w Dr. Esther Pa MD
[2018-02-23 10:33] LABS: Mucous, Urine 0 SEEN /hpf (<or=2+)
[2018-02-23 10:41] LABS: Color, Urine Yellow (Yellow); Glucose, Dipstick Normal (Normal); Ketone-Dipstick Negative (Negative); Leukocyte Esterase-Dipstick 25 /ul (Negative); Nitrite-Dipstick Negative (Negative); Occult Blood-Urine 25 /ul (Negative); Protein-Dipstick 500 mg/dl (Negative); Urine Bilirubin Dipstick Negative (Negative); Urine Clarity Sl. Cloudy (Clear); Urine Urobilinogen Normal (Normal)
[2018-02-23 10:48] LABS: Bacteria 1+ /hpf (None Seen); Red Blood Cells-Urine 0-5 SEEN /hpf (0-5); Squamous Epithelial Cells - UA 5-10 SEEN /hpf (5-10); White Blood Cells 0-5 SEEN /hpf (0-5)
[2018-02-23 11:41] LABS: Bedside Glucose 174 mg/dL (70-110)
[2018-02-23] MEDS: Insulin Lispro 100 UNIT/ML INSULN.PEN SC (11:55)
--- NOTE | 2018-02-23 12:24 | DCINST_ITS ---
- Discharge Diagnoses Current Active Problems: Current Active and Chronic Problems (Last Reviewed 11/28/17 @ 13:23 by Priyanka Castano) CHF (congestive heart failure) (Acute) H/O mechanical aortic valve replacement (Chronic) Hemoptysis (Acute) CKD (chronic kidney disease), stage III (Chronic) Anemia (Chronic) You will use the following diet at home:: Cardiac, Renal (restricted protein/sodium) Discharge Activity: Return to Normal Activity Call your doctor if you observe: Shortness of breath, Dizziness, Fainting spells, Chest pain Allergies/Adverse Reactions: Allergies ciprofloxacin [From Cipro] Allergy (Verified 02/16/18 13:17) Swelling mesalamine Allergy (Verified 02/16/18 13:17) SOB/abdominal cramps Opioids - Morphine Analogues Adverse Reaction (Severe, Verified 02/16/18 13:17) emesis adhesive Adverse Reaction (Verified 02/16/18 15:28) blisters tegaderm ok clonidine Adverse Reaction (Verified 02/16/18 15:28) Unknown tramadol Adverse Reaction (Verified 02/16/18 13:17) Nausea/Vom/Diarrhea Medications to take at Discharge Albuterol Inhaler [Ventolin Hfa] 2 puff INHALATION Q6H PRN PRN 09/14/15 Levothyroxine [Synthroid] 75 mcg PO DAILY 09/14/15 Mometasone Furoate [Asmanex 220 mcg Twisthaler] 2 puff INHALATION BID 09/14/15 Sertraline HCl [Zoloft] 100 mg PO QHS 09/14/15 Simvastatin [Zocor] 80 mg PO QHS 07/15/16 Acetaminophen [Tylenol] 325 mg PO Q6H PRN PRN 11/25/16 amoxicillin 500 mg capsule See Rx Instructions PO .Dental procedure cap 07/22/17 glimepiride 1 mg tablet 1 mg PO QAM tab 07/25/17 allopurinol 100 mg tablet 100 mg PO DAILY tab 09/16/17 nitroglycerin 0.4 mg sublingual tablet 0.4 mg SUBLINGUAL Q5-15M PRN #25 tab 11/28/17 bumetanide 1 mg tablet 2 mg PO BID tab 01/30/18 Calcitriol [Rocaltrol] 0.25 mcg PO DAILY 02/16/18 Ergocalciferol [Vitamin D] 50,000 unit PO Q30D 02/16/18 Metolazone [Zaroxolyn] 2.5 mg PO DAILY 02/16/18 Torsemide [Demadex] 20 mg PO .TID 02/16/18 Warfarin Sodium [Coumadin] 1 mg PO SUMOTUWETH 02/16/18 Warfarin [Coumadin] 2 mg PO FRSA 02/16/18 Carvedilol [Coreg (Beta Salud)] 3.125 mg PO BID #60 tablet 02/23/18 Prednisone 40 mg PO DAILY 2 Days #4 tablet 02/23/18 The following prescriptions were given: Prednisone 40 mg PO DAILY 2 Days #4 tablet Carvedilol [Coreg (Beta Salud)] 3.125 mg PO BID #60 tablet Orders to be completed after discharge: Basic Metabolic Profile (BMP) Time Frame: 2 Days, Location: Laboratory Primary Care Physician: Cedrick Tavares [Primary Care Provider] - Please follow up with your Primary Care Physician in: 3-5 Days Test Results: Test results from this visit will be discussed in further detail at your follow- up appointment, if applicable. Please Follow Up With: Dr. Campos - Nephrology When: LARRY, 2-3 Days Please Follow Up With: John Medina MD When: 1-2 Weeks Please Follow Up With: Julian Blair DO When: 1-2 Weeks Proposed Discharge Date: 02/23/18
--- NOTE | 2018-02-23 12:27 | PCM.DC.SUM ---
<Aditi Bethea - Last Filed: 02/23/18 15:20> Discharge Date and Diagnosis - Problem List Patient Problems: Active and Suspected Problems (Last Reviewed 11/28/17 @ 13:23 by Priyanka Castano) WILLIAN (acute kidney injury) (Acute) Acute respiratory failure with hypoxia (Acute) Hemoptysis (Acute) Chronic combined systolic and diastolic CHF (congestive heart failure) (Acute) Date of Admission: 02/16/18 Date of Discharge: 02/23/18 - Primary Discharge Diagnosis Active and Suspected Problems (Last Reviewed 11/28/17 @ 13:23 by Priyanka Castano) 1. Acute on chronic systolic CHF 2. Presumed COPD exacerbation 3. Acute hypoxic respiratory insufficiency secondary to #1/#2 4. Hemoptysis-resolved 5. Acute kidney injury with associated hyperkalemia secondary to contrast nephropathy on chronic kidney disease stage III 6. Status post mechanical aortic valve replacement on chronic anticoagulation with Coumadin - Secondary Discharge Diagnosis Chronic Problems (Last Reviewed 11/28/17 @ 13:23 by Priyanka Castano) H/O mechanical aortic valve replacement (Chronic) CKD (chronic kidney disease), stage III (Chronic) Anemia (Chronic) Renal insufficiency (Chronic) Nonrheumatic mitral (valve) insufficiency (Chronic) Atherosclerotic heart disease of [place] coronary artery without angina pectoris (Chronic) CABG, MOLINA graft to LAD, SVG to OM 1, SVG to acute marginal; Primary pulmonary hypertension (Chronic) Aortic valve disease (Chronic) Sinus bradycardia (Chronic) Cardiac arrhythmia (Chronic) Abnormal electrocardiogram (Chronic) Aortocoronary bypass status (Chronic) CABG, MOLINA graft to LAD, SVG to OM 1, SVG to acute marginal; detention use of drug (Chronic) Other nonspecific abnormal cardiovascular system function study (Chronic) Palpitations (Chronic) Nicotine abuse (Chronic) Diastolic dysfunction (Chronic) Bilateral carotid bruits (Chronic) Orthostatic hypotension (Chronic) Systolic CHF, chronic (Chronic) 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) Hypokalemia (Chronic) S/P CABG x 3 (Chronic) Gastrointestinal bleed (Chronic) Anemia due to blood loss, acute (Chronic) Chronic anticoagulation (Chronic) Chronic renal failure, stage 3 (moderate) (Chronic) CAD (coronary artery disease) (Chronic) History of aortic valve replacement with metallic valve (Chronic) History of CEA (carotid endarterectomy) (Chronic) FELICIA (renal artery stenosis) (Chronic) w stent HTN (hypertension) (Chronic) COPD (chronic obstructive pulmonary disease) (Chronic) Tobacco dependence (Chronic) Mitral valve insufficiency (Chronic) Tricuspid valve insufficiency (Chronic) HLD (hyperlipidemia) (Chronic) Diabetes (Chronic) Diastolic CHF, chronic (Chronic) Carotid artery disease (Chronic) Crohn's colitis (Chronic) Hospital Course and Treatment Imaging Results: Diagnostic Data Chest X-Ray 02/16/18 16:12 IMPRESSION: There is moderate enlargement of the cardiac silhouette with vascular congestion. There is no obvious effusion. There is stable COPD with mild diffuse fibrosis. Electronically Signed: Karli Mancilla MD at 17:12 EDT Tel Direct: [phone], Service support , Chest CT 02/17/18 08:38 IMPRESSION: 1. Diffuse interlobular septal thickening with groundglass opacities in both lungs. They are suggestive of hydrostatic pulmonary edema. 2. Focal atelectases in the right posterior lung base and mild to moderate right posterior pleural fluid. 3. Cardiomegaly with aortic valve prosthesis. 4. Dense vascular calcifications of the thoracic aorta and all its branches. Electronically Signed: Lukasz Shelley MD at 10:40 EDT , Service support , Dr. Medina- Cardiology Dr. Blair- Pulmonary Dr. Almeida- Nephrology Operations: None Procedures: 2-D Echocardiogram, Cardiac catheterization Summary of Care Provided: The patient is a 72 year old F admitted 02/16/2018 due to shortness of breath. 1. Acute on chronic systolic CHF-cardiology following. Lasix drip discontinued due to worsening renal function. Echocardiogram shows an EF of 35%, moderate mitral valve insufficiency, moderate to severe tricuspid valve insufficiency, stable appearing mechanical aortic valve, mild pulmonic valve insufficiency, RVSP estimated to be 78 mmHg. Cardiac catheterization 02/19/2018 demonstrated severe pulmonary hypertension, multivessel CAD, patent MOLINA to LAD, patent SVG to OM, SVG to RCA patent. Stable appearing aortic valve. Patient to continue with medical therapy. Follow-up with Dr. Medina in 1-2 weeks. 2. Presumed COPD exacerbation-no prior formal testing. Patient will require PFTs as outpatient with pulmonary medicine. Prednisone 40 mg x 5 days with DC date 02/25/18. Further outpatient follow-up with Dr. Blair in 1-2 weeks. 3. Acute hypoxic respiratory insufficiency secondary to #1/#2. Stable on room air. Walking pulse ox completed and patient did not require further supplemental oxygen at discharge. 4. Hemoptysis, intermittent-pulmonary medicine consulted. CT of chest shows groundglass opacities bilateral lungs. Suggestive of pulmonary edema.. No further hemoptysis during admission. Resume Coumadin at home dose. Outpatient follow-up with pulmonary medicine. 4. Acute kidney injury with associated hyperkalemia on chronic kidney disease stage III- History of renal artery stenosis status post stent. Nephrology consulted. Suspects acute renal failure secondary to contrast nephropathy. Patient received Kayexalate 30gm X2, hyperkalemia resolved. OK for discharge per nephrology on previous diuretic regimen. Repeat BMP in 2 days and follow up with primary maintenance and repair worker in 2-3 days. 5. CAD status post CABG- continue statin, beta salud. Cath during admission as noted above. 6. History of CVA-residual right eye blindness. Continue statin, Coumadin. 7. History of carotid artery disease status post CEA 8. Chronic macrocytic anemia-stable. 9. Type 2 diabetes mellitus-Hemoglobin A1c 11/25/16 8.2%. Continue home regimen. 10. Status post mechanical aortic valve replacement-on chronic anticoagulation with Coumadin. GI bleed earlier this year. 11. Hyperlipidemia-continue statin. 12. Hypothyroidism-continue Synthroid regimen. 13. Gout- Continue allopurinol. 14. Depression/anxiety-continue home sertraline regimen. 15. History of breast cancer status post mastectomy 16. Tobacco dependence-encourage smoking cessation. General: Alert, Oriented x3, Cooperative HEENT: Atraumatic, PERRLA, EOMI, Normocephalic Neck: Supple, No JVD, Negative Carotid Bruits Lungs: Clear to auscultation, Normal air movement Cardiovascular: Regular rate, Regular Rhythm, Normal S1, Normal S2, No murmurs Abdomen: Bowel Sounds Present, Soft, Non Tender, Non-Distended Extremities: No clubbing, No cyanosis, Edema - Bilateral lower extremity, improved Skin: No rashes, No breakdown Musculoskeletal: No Tenderness to Palpation of Joints or Extremities Neurological: Cranial nerves II-XII grossly intact, Neuro grossly intact Psych/Mental Status: Normal Affect, Appropriate Patient seen exam prior to discharge. Physical assessment as noted above. Patient is stable for discharge home with close follow-up with nephrology as well as primary care physician, cardiology and pulmonary medicine. This patient was seen by SILAS Kyle under the supervision of Dr. Santana. Patient Problems: Active and Suspected Problems (Last Reviewed 11/28/17 @ 13:23 by Priyanka Castano) WILLIAN (acute kidney injury) (Acute) Acute respiratory failure with hypoxia (Acute) Hemoptysis (Acute) Chronic combined systolic and diastolic CHF (congestive heart failure) (Acute) - Physical Exam Vital Signs Temp Pulse Resp BP Pulse Ox 97 F L 51 L 18 139/49 H 97 02/23/18 09:10 02/23/18 11:01 02/23/18 09:10 02/23/18 09:10 02/23/18 09:10 Oxygen Flow Rate (L/min) 2 Oxygen Delivery Method Room Air Weight: 173 lb 11.588 oz Body Mass Index (BMI) 30.7 Intake and Output for Last 24 Hours 02/21/18 02/22/18 02/23/18 23:59 23:59 23:59 Intake Total 1616 / 1616 1333 / 1333 798 / 798 Output Total 750 / 750 600 / 600 302 / 302 Balance 866 / 866 733 / 733 496 / 496 Laboratory Tests Past 24 Hrs 02/22/18 02/23/18 02/23/18 14:05 06:32 06:32 WBC 7.0 RBC 2.96 L Hgb 9.6 L Hct 30.3 L MCV 102.4 H MCH 32.4 H MCHC 31.7 L RDW 14.2 RDW Differential 53.0 H Plt Count 193 MPV 12.4 H PT INR Sodium 138 143 Potassium 6.4 H* 4.2 Chloride 108 H 110 H Carbon Dioxide 21.0 20.0 L Anion Gap 9 13 BUN 95 H 102 H* Creatinine 4.22 H 4.15 H Estim Creat Clear Calc 9.36 9.52 Est GFR (MDRD) Af Amer 13 L 14 L Est GFR (MDRD) Non-Af 11 L 11 L BUN/Creatinine Ratio 22.5 H 24.6 H Glucose 216 H 90 Calcium 8.2 L 8.3 L Magnesium 2.2 Urine Color Urine Clarity Urine pH Ur Specific [place] Urine Protein Urine Glucose (UA) Urine Ketones Urine Occult Blood Urine Nitrite Urine Bilirubin Urine Urobilinogen Ur Leukocyte Esterase Urine RBC Urine WBC Ur Squamous Epith Cells Urine Bacteria Urine Mucus 02/23/18 02/23/18 06:32 10:15 WBC RBC Hgb Hct MCV MCH MCHC RDW RDW Differential Plt Count MPV PT 22.9 H INR 2.0 Sodium Potassium Chloride Carbon Dioxide Anion Gap BUN Creatinine Estim Creat Clear Calc Est GFR (MDRD) Af Amer Est GFR (MDRD) Non-Af BUN/Creatinine Ratio Glucose Calcium Magnesium Urine Color Yellow Urine Clarity Sl. Cloudy Urine pH 5.0 Ur Specific [place] 1.020 Urine Protein 500 H Urine Glucose (UA) Normal Urine Ketones Negative Urine Occult Blood 25 H Urine Nitrite Negative Urine Bilirubin Negative Urine Urobilinogen Normal Ur Leukocyte Esterase 25 H Urine RBC 0-5 SEEN Urine WBC 0-5 SEEN Ur Squamous Epith Cells 5-10 SEEN Urine Bacteria 1+ Urine Mucus 0 SEEN POC Glucose 02/23/18 02/23/18 02/23/18 11:24 06:33 03:28 POC Glucose 174 H 103 130 H 02/22/18 02/22/18 21:09 16:57 POC Glucose 273 H 218 H Discharge Diet: Low fat/ Low Cholesterol, Carb Control Diet Discharge Activity: Return to Normal Activity Call your doctor if you observe: Shortness of breath, Dizziness, Fainting spells, Chest pain Home Medications: Medications to take at Discharge Albuterol Inhaler [Ventolin Hfa] 2 puff INHALATION Q6H PRN PRN 09/14/15 Levothyroxine [Synthroid] 75 mcg PO DAILY 09/14/15 Mometasone Furoate [Asmanex 220 mcg Twisthaler] 2 puff INHALATION BID 09/14/15 Sertraline HCl [Zoloft] 100 mg PO QHS 09/14/15 Simvastatin [Zocor] 80 mg PO QHS 07/15/16 Acetaminophen [Tylenol] 325 mg PO Q6H PRN PRN 11/25/16 amoxicillin 500 mg capsule See Rx Instructions PO .Dental procedure cap 07/22/17 glimepiride 1 mg tablet 1 mg PO QAM tab 07/25/17 allopurinol 100 mg tablet 100 mg PO DAILY tab 09/16/17 nitroglycerin 0.4 mg sublingual tablet 0.4 mg SUBLINGUAL Q5-15M PRN #25 tab 11/28/17 Calcitriol [Rocaltrol] 0.25 mcg PO DAILY 02/16/18 Ergocalciferol [Vitamin D] 50,000 unit PO Q30D 02/16/18 Metolazone [Zaroxolyn] 2.5 mg PO DAILY 02/16/18 Torsemide [Demadex] 20 mg PO .TID 02/16/18 Warfarin Sodium [Coumadin] 1 mg PO SUMOTUWETH 02/16/18 Warfarin [Coumadin] 2 mg PO FRSA 02/16/18 Carvedilol [Coreg (Beta Salud)] 3.125 mg PO BID #60 tablet 02/23/18 Prednisone 40 mg PO DAILY 2 Days #4 tablet 02/23/18 Following Prescrptions Were Given to Patient: Prednisone 40 mg PO DAILY 2 Days #4 tablet Carvedilol [Coreg (Beta Salud)] 3.125 mg PO BID #60 tablet Other Amb Orders: Basic Metabolic Profile (BMP) Time Frame: 2 Days, Location: Laboratory Primary Care Physician: Cedrick Tavares [Primary Care Provider] - Please follow up with your Primary Care Physician in: 3-5 Days Please Follow Up With: Dr. Campos - Nephrology When: LARRY, 2-3 Days Please Follow Up With: John Medina MD When: 1-2 Weeks Please Follow Up With: Julian Blair DO When: 1-2 Weeks Disposition: Home Minutes spent on discharge:: 35 Patient Condition:: Stable Medical Necessity - Tobacco Use Smoking Status: Heavy Smoker (>10/day) Tobacco Use: Cigarettes Meaningful Use Info Meaningful Use Diagnoses (Choose all that apply): CHF - CHF JG/ARB ordered at discharge?: No Reason JG/ARB not ordered?: Worsening renal dysfunctn Documented LVEF (%): 35 <Reid Santana - Last Filed: 02/23/18 16:01> Discharge Date and Diagnosis - Secondary Discharge Diagnosis Chronic Problems (Last Reviewed 11/28/17 @ 13:23 by Priyanka Castano) H/O mechanical aortic valve replacement (Chronic) CKD (chronic kidney disease), stage III (Chronic) Anemia (Chronic) Renal insufficiency (Chronic) Nonrheumatic mitral (valve) insufficiency (Chronic) Atherosclerotic heart disease of [place] coronary artery without angina pectoris (Chronic) CABG, MOLINA graft to LAD, SVG to OM 1, SVG to acute marginal; Primary pulmonary hypertension (Chronic) Aortic valve disease (Chronic) Sinus bradycardia (Chronic) Cardiac arrhythmia (Chronic) Abnormal electrocardiogram (Chronic) Aortocoronary bypass status (Chronic) CABG, MOLINA graft to LAD, SVG to OM 1, SVG to acute marginal; oil heaterman use of drug (Chronic) Other nonspecific abnormal cardiovascular system function study (Chronic) Palpitations (Chronic) Nicotine abuse (Chronic) Diastolic dysfunction (Chronic) Bilateral carotid bruits (Chronic) Orthostatic hypotension (Chronic) Systolic CHF, chronic (Chronic) 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) Hypokalemia (Chronic) S/P CABG x 3 (Chronic) Gastrointestinal bleed (Chronic) Anemia due to blood loss, acute (Chronic) Chronic anticoagulation (Chronic) Chronic renal failure, stage 3 (moderate) (Chronic) CAD (coronary artery disease) (Chronic) History of aortic valve replacement with metallic valve (Chronic) History of CEA (carotid endarterectomy) (Chronic) FELICIA (renal artery stenosis) (Chronic) w stent HTN (hypertension) (Chronic) COPD (chronic obstructive pulmonary disease) (Chronic) Tobacco dependence (Chronic) Mitral valve insufficiency (Chronic) Tricuspid valve insufficiency (Chronic) HLD (hyperlipidemia) (Chronic) Diabetes (Chronic) Diastolic CHF, chronic (Chronic) Carotid artery disease (Chronic) Crohn's colitis (Chronic) Hospital Course and Treatment Operations: None Procedures: 2-D Echocardiogram, Cardiac catheterization Summary of Care Provided: Patient seen and examined independently. Data reviewed. I agree with the above note by the nurse practitioner. The patient is a 72 year old F presents with SOB. 1. Acute HFrEF EF 35% Continue Demedex and metolazone Stop Bumex Continue Coreg not candidate for ACEi/ARB given CKD follow up with cardiology Pt underwent a LHC on the , that showed non-obstructive CAD.[] 2. WILLIAN known CKD III likely contrast nephropathy and overdiuresis seen by nephrology outpt BMPs follow up with Dr. Campos (nephrology) 3. Mechanical AVR goal INR 2-2.9 follow up INR as outpt 4. Hemoptysis resolved seen by pulmonology follow up with pulm as outpt. 5. Acute hypoxic resp failure 2/2 CHF exacerbation resolved - Physical Exam General: Alert, Cooperative, No apparent distress, - - up in chair. no resp distress. HEENT: Atraumatic, Normocephalic Oral: Moist Mucosa, No Gingival or Mucosal Lesions/ Ulcerations Neck: No Nodes, Thyroid Normal Size and Texture Lungs: Clear to auscultation, Normal air movement, No rhonchi, No wheeze Cardiovascular: Regular rate, Regular Rhythm, Normal S1, Normal S2, No murmurs Abdomen: Bowel Sounds Present, Soft, Non Tender, Non-Distended, No Hepato-splenomegaly Extremities: No edema, No Calf Tenderness Vital Signs Temp Pulse Resp BP Pulse Ox 36.8 C 52 L 18 132/48 H 97 02/23/18 15:00 02/23/18 15:00 02/23/18 15:00 02/23/18 15:00 02/23/18 15:00 Oxygen Flow Rate (L/min) 2 Oxygen Delivery Method Room Air Weight: 78.8 kg Body Mass Index (BMI) 30.7 Intake and Output for Last 24 Hours 02/21/18 02/22/18 02/23/18 23:59 23:59 23:59 Intake Total 1616 / 1616 1333 / 1333 798 / 798 Output Total 750 / 750 600 / 600 302 / 302 Balance 866 / 866 733 / 733 496 / 496 Laboratory Tests Past 24 Hrs 02/23/18 02/23/18 02/23/18 06:32 06:32 06:32 WBC 7.0 RBC 2.96 L Hgb 9.6 L Hct 30.3 L MCV 102.4 H MCH 32.4 H MCHC 31.7 L RDW 14.2 RDW Differential 53.0 H Plt Count 193 MPV 12.4 H PT 22.9 H INR 2.0 Sodium 143 Potassium 4.2 Chloride 110 H Carbon Dioxide 20.0 L Anion Gap 13 BUN 102 H* Creatinine 4.15 H Estim Creat Clear Calc 9.52 Est GFR (MDRD) Af Amer 14 L Est GFR (MDRD) Non-Af 11 L BUN/Creatinine Ratio 24.6 H Glucose 90 Calcium 8.3 L Magnesium 2.2 Urine Color Urine Clarity Urine pH Ur Specific [place] Urine Protein Urine Glucose (UA) Urine Ketones Urine Occult Blood Urine Nitrite Urine Bilirubin Urine Urobilinogen Ur Leukocyte Esterase Urine RBC Urine WBC Ur Squamous Epith Cells Urine Bacteria Urine Mucus Ur Random Sodium Urine Creatinine 02/23/18 02/23/18 02/23/18 10:15 13:10 13:10 WBC RBC Hgb Hct MCV MCH MCHC RDW RDW Differential Plt Count MPV PT INR Sodium Potassium Chloride Carbon Dioxide Anion Gap BUN Creatinine Estim Creat Clear Calc Est GFR (MDRD) Af Amer Est GFR (MDRD) Non-Af BUN/Creatinine Ratio Glucose Calcium Magnesium Urine Color Yellow Urine Clarity Sl. Cloudy Urine pH 5.0 Ur Specific [place] 1.020 Urine Protein 500 H Urine Glucose (UA) Normal Urine Ketones Negative Urine Occult Blood 25 H Urine Nitrite Negative Urine Bilirubin Negative Urine Urobilinogen Normal Ur Leukocyte Esterase 25 H Urine RBC 0-5 SEEN Urine WBC 0-5 SEEN Ur Squamous Epith Cells 5-10 SEEN Urine Bacteria 1+ Urine Mucus 0 SEEN Ur Random Sodium < 5 Urine Creatinine 112.00 POC Glucose 02/23/18 02/23/18 02/23/18 11:24 06:33 03:28 POC Glucose 174 H 103 130 H 02/22/18 02/22/18 21:09 16:57 POC Glucose 273 H 218 H Discharge Diet: Low fat/ Low Cholesterol, 6 Cup Fluid Restriction, 2000 mg Sodium Diet, Carb Control Diet Discharge Activity: Return to Normal Activity Call your doctor if you observe: Shortness of breath, Dizziness, Fainting spells, Chest pain Disposition: Home Minutes spent on discharge:: 35 Patient Condition:: Stable Meaningful Use Info Meaningful Use Diagnoses (Choose all that apply): CHF - CHF JG/ARB ordered at discharge?: No Reason JG/ARB not ordered?: Worsening renal dysfunctn Documented LVEF (%): 35 Code Visit Inpatient E&M: 77237 Disch Hosp
--- NOTE | 2018-02-23 12:37 | DS.PCM_ITS ---
Addendum entered and electronically signed by SILAS Kyle 02/23/18 15:21: Code Visit Addendum to discharge medications: patient listed on being on both Demadex and Bumex as well as metolazone on home regimen. Patient will continue Demadex and metolazone only and discontinue Bumex. Patient was recently taken off of Bumex and placed on Demadex and metolazone by cardiology. Patient aware to discontinue Bumex regimen at discharge. Original Note: <Aditi Bethea - Last Filed: 02/23/18 15:20> Discharge Date and Diagnosis - Problem List Patient Problems: Active and Suspected Problems (Last Reviewed 11/28/17 @ 13:23 by Priyanka Castano) WILLIAN (acute kidney injury) (Acute) Acute respiratory failure with hypoxia (Acute) Hemoptysis (Acute) Chronic combined systolic and diastolic CHF (congestive heart failure) (Acute) Date of Admission: 02/16/18 Date of Discharge: 02/23/18 - Primary Discharge Diagnosis Active and Suspected Problems (Last Reviewed 11/28/17 @ 13:23 by Priyanka Castano) 1. Acute on chronic systolic CHF 2. Presumed COPD exacerbation 3. Acute hypoxic respiratory insufficiency secondary to #1/#2 4. Hemoptysis-resolved 5. Acute kidney injury with associated hyperkalemia secondary to contrast nephropathy on chronic kidney disease stage III 6. Status post mechanical aortic valve replacement on chronic anticoagulation with Coumadin - Secondary Discharge Diagnosis Chronic Problems (Last Reviewed 11/28/17 @ 13:23 by Priyanka Castano) H/O mechanical aortic valve replacement (Chronic) CKD (chronic kidney disease), stage III (Chronic) Anemia (Chronic) Renal insufficiency (Chronic) Nonrheumatic mitral (valve) insufficiency (Chronic) Atherosclerotic heart disease of [place] coronary artery without angina pectoris (Chronic) CABG, MOLINA graft to LAD, SVG to OM 1, SVG to acute marginal; Primary pulmonary hypertension (Chronic) Aortic valve disease (Chronic) Sinus bradycardia (Chronic) Cardiac arrhythmia (Chronic) Abnormal electrocardiogram (Chronic) Aortocoronary bypass status (Chronic) CABG, MOLINA graft to LAD, SVG to OM 1, SVG to acute marginal; [facility] use of drug (Chronic) Other nonspecific abnormal cardiovascular system function study (Chronic) Palpitations (Chronic) Nicotine abuse (Chronic) Diastolic dysfunction (Chronic) Bilateral carotid bruits (Chronic) Orthostatic hypotension (Chronic) Systolic CHF, chronic (Chronic) [facility] (current) use of anticoagulants (Chronic) Hypokalemia (Chronic) S/P CABG x 3 (Chronic) Gastrointestinal bleed (Chronic) Anemia due to blood loss, acute (Chronic) Chronic anticoagulation (Chronic) Chronic renal failure, stage 3 (moderate) (Chronic) CAD (coronary artery disease) (Chronic) History of aortic valve replacement with metallic valve (Chronic) History of CEA (carotid endarterectomy) (Chronic) FELICIA (renal artery stenosis) (Chronic) w stent HTN (hypertension) (Chronic) COPD (chronic obstructive pulmonary disease) (Chronic) Tobacco dependence (Chronic) Mitral valve insufficiency (Chronic) Tricuspid valve insufficiency (Chronic) HLD (hyperlipidemia) (Chronic) Diabetes (Chronic) Diastolic CHF, chronic (Chronic) Carotid artery disease (Chronic) Crohn's colitis (Chronic) Hospital Course and Treatment Imaging Results: Diagnostic Data Chest X-Ray 02/16/18 16:12 IMPRESSION: There is moderate enlargement of the cardiac silhouette with vascular congestion. There is no obvious effusion. There is stable COPD with mild diffuse fibrosis. Electronically Signed: Karli Mancilla MD at 17:12 EDT Tel Direct: [phone], Service support , Chest CT 02/17/18 08:38 IMPRESSION: 1. Diffuse interlobular septal thickening with groundglass opacities in both lungs. They are suggestive of hydrostatic pulmonary edema. 2. Focal atelectases in the right posterior lung base and mild to moderate right posterior pleural fluid. 3. Cardiomegaly with aortic valve prosthesis. 4. Dense vascular calcifications of the thoracic aorta and all its branches. Electronically Signed: Lukasz Shelley MD at 10:40 EDT , Service support , Dr. Medina- Cardiology Dr. Blair- Pulmonary Dr. Almeida- Nephrology Operations: None Procedures: 2-D Echocardiogram, Cardiac catheterization Summary of Care Provided: The patient is a 72 year old F admitted 02/16/2018 due to shortness of breath. 1. Acute on chronic systolic CHF-cardiology following. Lasix drip discontinued due to worsening renal function. Echocardiogram shows an EF of 35%, moderate mitral valve insufficiency, moderate to severe tricuspid valve insufficiency, stable appearing mechanical aortic valve, mild pulmonic valve insufficiency, RVSP estimated to be 78 mmHg. Cardiac catheterization 02/19/2018 demonstrated severe pulmonary hypertension, multivessel CAD, patent MOLINA to LAD, patent SVG to OM, SVG to RCA patent. Stable appearing aortic valve. Patient to continue with medical therapy. Follow-up with Dr. Medina in 1-2 weeks. 2. Presumed COPD exacerbation-no prior formal testing. Patient will require PFTs as outpatient with pulmonary medicine. Prednisone 40 mg x 5 days with DC date 02/25/18. Further outpatient follow-up with Dr. Blair in 1-2 weeks. 3. Acute hypoxic respiratory insufficiency secondary to #1/#2. Stable on room air. Walking pulse ox completed and patient did not require further supplemental oxygen at discharge. 4. Hemoptysis, intermittent-pulmonary medicine consulted. CT of chest shows groundglass opacities bilateral lungs. Suggestive of pulmonary edema.. No further hemoptysis during admission. Resume Coumadin at home dose. Outpatient follow-up with pulmonary medicine. 4. Acute kidney injury with associated hyperkalemia on chronic kidney disease stage III- History of renal artery stenosis status post stent. Nephrology consulted. Suspects acute renal failure secondary to contrast nephropathy. Patient received Kayexalate 30gm X2, hyperkalemia resolved. OK for discharge per nephrology on previous diuretic regimen. Repeat BMP in 2 days and follow up with primary boiler cleaner in 2-3 days. 5. CAD status post CABG- continue statin, beta salud. Cath during admission as noted above. 6. History of CVA-residual right eye blindness. Continue statin, Coumadin. 7. History of carotid artery disease status post CEA 8. Chronic macrocytic anemia-stable. 9. Type 2 diabetes mellitus-Hemoglobin A1c 11/25/16 8.2%. Continue home regimen. 10. Status post mechanical aortic valve replacement-on chronic anticoagulation with Coumadin. GI bleed earlier this year. 11. Hyperlipidemia-continue statin. 12. Hypothyroidism-continue Synthroid regimen. 13. Gout- Continue allopurinol. 14. Depression/anxiety-continue home sertraline regimen. 15. History of breast cancer status post mastectomy 16. Tobacco dependence-encourage smoking cessation. General: Alert, Oriented x3, Cooperative HEENT: Atraumatic, PERRLA, EOMI, Normocephalic Neck: Supple, No JVD, Negative Carotid Bruits Lungs: Clear to auscultation, Normal air movement Cardiovascular: Regular rate, Regular Rhythm, Normal S1, Normal S2, No murmurs Abdomen: Bowel Sounds Present, Soft, Non Tender, Non-Distended Extremities: No clubbing, No cyanosis, Edema - Bilateral lower extremity, improved Skin: No rashes, No breakdown Musculoskeletal: No Tenderness to Palpation of Joints or Extremities Neurological: Cranial nerves II-XII grossly intact, Neuro grossly intact Psych/Mental Status: Normal Affect, Appropriate Patient seen exam prior to discharge. Physical assessment as noted above. Patient is stable for discharge home with close follow-up with nephrology as well as primary care physician, cardiology and pulmonary medicine. This patient was seen by SILAS Kyle under the supervision of Dr. Santana. Patient Problems: Active and Suspected Problems (Last Reviewed 11/28/17 @ 13:23 by Priyanka Castano) WILLIAN (acute kidney injury) (Acute) Acute respiratory failure with hypoxia (Acute) Hemoptysis (Acute) Chronic combined systolic and diastolic CHF (congestive heart failure) (Acute) - Physical Exam Vital Signs Temp Pulse Resp BP Pulse Ox 97 F L 51 L 18 139/49 H 97 02/23/18 09:10 02/23/18 11:01 02/23/18 09:10 02/23/18 09:10 02/23/18 09:10 Oxygen Flow Rate (L/min) 2 Oxygen Delivery Method Room Air Weight: 173 lb 11.588 oz Body Mass Index (BMI) 30.7 Intake and Output for Last 24 Hours 02/21/18 02/22/18 02/23/18 23:59 23:59 23:59 Intake Total 1616 / 1616 1333 / 1333 798 / 798 Output Total 750 / 750 600 / 600 302 / 302 Balance 866 / 866 733 / 733 496 / 496 Laboratory Tests Past 24 Hrs 02/22/18 02/23/18 02/23/18 14:05 06:32 06:32 WBC 7.0 RBC 2.96 L Hgb 9.6 L Hct 30.3 L MCV 102.4 H MCH 32.4 H MCHC 31.7 L RDW 14.2 RDW Differential 53.0 H Plt Count 193 MPV 12.4 H PT INR Sodium 138 143 Potassium 6.4 H* 4.2 Chloride 108 H 110 H Carbon Dioxide 21.0 20.0 L Anion Gap 9 13 BUN 95 H 102 H* Creatinine 4.22 H 4.15 H Estim Creat Clear Calc 9.36 9.52 Est GFR (MDRD) Af Amer 13 L 14 L Est GFR (MDRD) Non-Af 11 L 11 L BUN/Creatinine Ratio 22.5 H 24.6 H Glucose 216 H 90 Calcium 8.2 L 8.3 L Magnesium 2.2 Urine Color Urine Clarity Urine pH Ur Specific Fabens Urine Protein Urine Glucose (UA) Urine Ketones Urine Occult Blood Urine Nitrite Urine Bilirubin Urine Urobilinogen Ur Leukocyte Esterase Urine RBC Urine WBC Ur Squamous Epith Cells Urine Bacteria Urine Mucus 02/23/18 02/23/18 06:32 10:15 WBC RBC Hgb Hct MCV MCH MCHC RDW RDW Differential Plt Count MPV PT 22.9 H INR 2.0 Sodium Potassium Chloride Carbon Dioxide Anion Gap BUN Creatinine Estim Creat Clear Calc Est GFR (MDRD) Af Amer Est GFR (MDRD) Non-Af BUN/Creatinine Ratio Glucose Calcium Magnesium Urine Color Yellow Urine Clarity Sl. Cloudy Urine pH 5.0 Ur Specific Fabens 1.020 Urine Protein 500 H Urine Glucose (UA) Normal Urine Ketones Negative Urine Occult Blood 25 H Urine Nitrite Negative Urine Bilirubin Negative Urine Urobilinogen Normal Ur Leukocyte Esterase 25 H Urine RBC 0-5 SEEN Urine WBC 0-5 SEEN Ur Squamous Epith Cells 5-10 SEEN Urine Bacteria 1+ Urine Mucus 0 SEEN POC Glucose 02/23/18 02/23/18 02/23/18 11:24 06:33 03:28 POC Glucose 174 H 103 130 H 02/22/18 02/22/18 21:09 16:57 POC Glucose 273 H 218 H Discharge Diet: Low fat/ Low Cholesterol, Carb Control Diet Discharge Activity: Return to Normal Activity Call your doctor if you observe: Shortness of breath, Dizziness, Fainting spells, Chest pain Home Medications: Medications to take at Discharge Albuterol Inhaler [Ventolin Hfa] 2 puff INHALATION Q6H PRN PRN 09/14/15 Levothyroxine [Synthroid] 75 mcg PO DAILY 09/14/15 Mometasone Furoate [Asmanex 220 mcg Twisthaler] 2 puff INHALATION BID 09/14/15 Sertraline HCl [Zoloft] 100 mg PO QHS 09/14/15 Simvastatin [Zocor] 80 mg PO QHS 07/15/16 Acetaminophen [Tylenol] 325 mg PO Q6H PRN PRN 11/25/16 amoxicillin 500 mg capsule See Rx Instructions PO .Dental procedure cap 07/22/17 glimepiride 1 mg tablet 1 mg PO QAM tab 07/25/17 allopurinol 100 mg tablet 100 mg PO DAILY tab 09/16/17 nitroglycerin 0.4 mg sublingual tablet 0.4 mg SUBLINGUAL Q5-15M PRN #25 tab 11/28/17 Calcitriol [Rocaltrol] 0.25 mcg PO DAILY 02/16/18 Ergocalciferol [Vitamin D] 50,000 unit PO Q30D 02/16/18 Metolazone [Zaroxolyn] 2.5 mg PO DAILY 02/16/18 Torsemide [Demadex] 20 mg PO .TID 02/16/18 Warfarin Sodium [Coumadin] 1 mg PO SUMOTUWETH 02/16/18 Warfarin [Coumadin] 2 mg PO FRSA 02/16/18 Carvedilol [Coreg (Beta Salud)] 3.125 mg PO BID #60 tablet 02/23/18 Prednisone 40 mg PO DAILY 2 Days #4 tablet 02/23/18 Following Prescrptions Were Given to Patient: Prednisone 40 mg PO DAILY 2 Days #4 tablet Carvedilol [Coreg (Beta Salud)] 3.125 mg PO BID #60 tablet Other Amb Orders: Basic Metabolic Profile (BMP) Time Frame: 2 Days, Location: Laboratory Primary Care Physician: Cedrick Tavares [Primary Care Provider] - Please follow up with your Primary Care Physician in: 3-5 Days Please Follow Up With: Dr. Campos - Nephrology When: LARRY, 2-3 Days Please Follow Up With: John Medina MD When: 1-2 Weeks Please Follow Up With: Julian Blair DO When: 1-2 Weeks Disposition: Home Minutes spent on discharge:: 35 Patient Condition:: Stable Medical Necessity - Tobacco Use Smoking Status: Heavy Smoker (>10/day) Tobacco Use: Cigarettes Meaningful Use Info Meaningful Use Diagnoses (Choose all that apply): CHF - CHF JG/ARB ordered at discharge?: No Reason JG/ARB not ordered?: Worsening renal dysfunctn Documented LVEF (%): 35 <Reid Santana - Last Filed: 02/23/18 16:01> Discharge Date and Diagnosis - Secondary Discharge Diagnosis Chronic Problems (Last Reviewed 11/28/17 @ 13:23 by Priyanka Castano) H/O mechanical aortic valve replacement (Chronic) CKD (chronic kidney disease), stage III (Chronic) Anemia (Chronic) Renal insufficiency (Chronic) Nonrheumatic mitral (valve) insufficiency (Chronic) Atherosclerotic heart disease of [place] coronary artery without angina pectoris (Chronic) CABG, MOLINA graft to LAD, SVG to OM 1, SVG to acute marginal; Primary pulmonary hypertension (Chronic) Aortic valve disease (Chronic) Sinus bradycardia (Chronic) Cardiac arrhythmia (Chronic) Abnormal electrocardiogram (Chronic) Aortocoronary bypass status (Chronic) CABG, MOLINA graft to LAD, SVG to OM 1, SVG to acute marginal; [facility] use of drug (Chronic) Other nonspecific abnormal cardiovascular system function study (Chronic) Palpitations (Chronic) Nicotine abuse (Chronic) Diastolic dysfunction (Chronic) Bilateral carotid bruits (Chronic) Orthostatic hypotension (Chronic) Systolic CHF, chronic (Chronic) emt intermediate (current) use of anticoagulants (Chronic) Hypokalemia (Chronic) S/P CABG x 3 (Chronic) Gastrointestinal bleed (Chronic) Anemia due to blood loss, acute (Chronic) Chronic anticoagulation (Chronic) Chronic renal failure, stage 3 (moderate) (Chronic) CAD (coronary artery disease) (Chronic) History of aortic valve replacement with metallic valve (Chronic) History of CEA (carotid endarterectomy) (Chronic) FELICIA (renal artery stenosis) (Chronic) w stent HTN (hypertension) (Chronic) COPD (chronic obstructive pulmonary disease) (Chronic) Tobacco dependence (Chronic) Mitral valve insufficiency (Chronic) Tricuspid valve insufficiency (Chronic) HLD (hyperlipidemia) (Chronic) Diabetes (Chronic) Diastolic CHF, chronic (Chronic) Carotid artery disease (Chronic) Crohn's colitis (Chronic) Hospital Course and Treatment Operations: None Procedures: 2-D Echocardiogram, Cardiac catheterization Summary of Care Provided: Patient seen and examined independently. Data reviewed. I agree with the above note by the nurse practitioner. The patient is a 72 year old F presents with SOB. 1. Acute HFrEF * EF 35% * Continue Demedex and metolazone * Stop Bumex * Continue Coreg * not candidate for ACEi/ARB given CKD * follow up with cardiology * Pt underwent a LHC on the , that showed non-obstructive CAD.[] 2. WILLIAN * known CKD III * likely contrast nephropathy and overdiuresis * seen by nephrology * outpt BMPs * follow up with Dr. Campos (nephrology) 3. Mechanical AVR * goal INR 2-2.9 * follow up INR as outpt 4. Hemoptysis * resolved * seen by pulmonology * follow up with pulm as outpt. 5. Acute hypoxic resp failure * 2/2 CHF exacerbation * resolved - Physical Exam General: Alert, Cooperative, No apparent distress, - - up in chair. no resp distress. HEENT: Atraumatic, Normocephalic Oral: Moist Mucosa, No Gingival or Mucosal Lesions/ Ulcerations Neck: No Nodes, Thyroid Normal Size and Texture Lungs: Clear to auscultation, Normal air movement, No rhonchi, No wheeze Cardiovascular: Regular rate, Regular Rhythm, Normal S1, Normal S2, No murmurs Abdomen: Bowel Sounds Present, Soft, Non Tender, Non-Distended, No Hepato- splenomegaly Extremities: No edema, No Calf Tenderness Vital Signs Temp Pulse Resp BP Pulse Ox 36.8 C 52 L 18 132/48 H 97 02/23/18 15:00 02/23/18 15:00 02/23/18 15:00 02/23/18 15:00 02/23/18 15:00 Oxygen Flow Rate (L/min) 2 Oxygen Delivery Method Room Air Weight: 78.8 kg Body Mass Index (BMI) 30.7 Intake and Output for Last 24 Hours 02/21/18 02/22/18 02/23/18 23:59 23:59 23:59 Intake Total 1616 / 1616 1333 / 1333 798 / 798 Output Total 750 / 750 600 / 600 302 / 302 Balance 866 / 866 733 / 733 496 / 496 Laboratory Tests Past 24 Hrs 02/23/18 02/23/18 02/23/18 06:32 06:32 06:32 WBC 7.0 RBC 2.96 L Hgb 9.6 L Hct 30.3 L MCV 102.4 H MCH 32.4 H MCHC 31.7 L RDW 14.2 RDW Differential 53.0 H Plt Count 193 MPV 12.4 H PT 22.9 H INR 2.0 Sodium 143 Potassium 4.2 Chloride 110 H Carbon Dioxide 20.0 L Anion Gap 13 BUN 102 H* Creatinine 4.15 H Estim Creat Clear Calc 9.52 Est GFR (MDRD) Af Amer 14 L Est GFR (MDRD) Non-Af 11 L BUN/Creatinine Ratio 24.6 H Glucose 90 Calcium 8.3 L Magnesium 2.2 Urine Color Urine Clarity Urine pH Ur Specific Fabens Urine Protein Urine Glucose (UA) Urine Ketones Urine Occult Blood Urine Nitrite Urine Bilirubin Urine Urobilinogen Ur Leukocyte Esterase Urine RBC Urine WBC Ur Squamous Epith Cells Urine Bacteria Urine Mucus Ur Random Sodium Urine Creatinine 02/23/18 02/23/18 02/23/18 10:15 13:10 13:10 WBC RBC Hgb Hct MCV MCH MCHC RDW RDW Differential Plt Count MPV PT INR Sodium Potassium Chloride Carbon Dioxide Anion Gap BUN Creatinine Estim Creat Clear Calc Est GFR (MDRD) Af Amer Est GFR (MDRD) Non-Af BUN/Creatinine Ratio Glucose Calcium Magnesium Urine Color Yellow Urine Clarity Sl. Cloudy Urine pH 5.0 Ur Specific Fabens 1.020 Urine Protein 500 H Urine Glucose (UA) Normal Urine Ketones Negative Urine Occult Blood 25 H Urine Nitrite Negative Urine Bilirubin Negative Urine Urobilinogen Normal Ur Leukocyte Esterase 25 H Urine RBC 0-5 SEEN Urine WBC 0-5 SEEN Ur Squamous Epith Cells 5-10 SEEN Urine Bacteria 1+ Urine Mucus 0 SEEN Ur Random Sodium < 5 Urine Creatinine 112.00 POC Glucose 02/23/18 02/23/18 02/23/18 11:24 06:33 03:28 POC Glucose 174 H 103 130 H 02/22/18 02/22/18 21:09 16:57 POC Glucose 273 H 218 H Discharge Diet: Low fat/ Low Cholesterol, 6 Cup Fluid Restriction, 2000 mg Sodium Diet, Carb Control Diet Discharge Activity: Return to Normal Activity Call your doctor if you observe: Shortness of breath, Dizziness, Fainting spells, Chest pain Disposition: Home Minutes spent on discharge:: 35 Patient Condition:: Stable Meaningful Use Info Meaningful Use Diagnoses (Choose all that apply): CHF - CHF JG/ARB ordered at discharge?: No Reason JG/ARB not ordered?: Worsening renal dysfunctn Documented LVEF (%): 35 Code Visit Inpatient E&M: 03600 Disch Hosp
[2018-02-23 13:47] LABS: Urine Sodium < 5 mmol/L (Not Establ.)
--- NOTE | 2018-02-25 15:55 | CASEMGMT ---
[facility] Discharge F/U Phone Call LACE: Yanelis Strata: 3 Discharge date: 02/23/18 Call date: 02/25/18 Call time: [id number] Duration: 4 minutes Admission dx: CHF Pt states has been doing 'ok and getting along' since discharge. Pt voices no questions regarding her discharge instructions at this time. Pt is concerned about her diuretics working properly. She states she still has some swelling and pt has some audible wheezing with exertion on the phone but able to speak in full sentences. Pt states no sob at this time and states that her pulse ox's have been good. Pt states she has appt with Dr. Medina next Friday. Pt states she is awaiting a call from his office in regards INR and BMP drawn this am. Advised pt to speak with his office in regards to the diuretic when they call, voices understanding. Pt voices no suggestions for [facility] at this time and voices no further concerns/needs at this time. [place] [facility]
== END 2018-02-23 15:45 | disposition home or self-care (01) | DRG 286 ==
PROVIDERS: Internal Medicine; Internal Medicine Cardiovascular Disease; Internal Medicine Critical Care Medicine; Internal Medicine Nephrology; Nurse Practitioner Family; Physician Assistant; Admitting Provider Family Medicine; Family Provider Family Medicine; PCP Family Medicine; Referring Provider Family Medicine
DX: I13.0 Hypertensive heart and chronic kidney disease with heart failure and stage 1 through stage 4 chronic kidney disease, or unspecified chronic kidney disease (principal); I50.23 Acute on chronic systolic (congestive) heart failure; N17.9 Acute kidney failure, unspecified; J44.1 Chronic obstructive pulmonary disease with (acute) exacerbation; I27.0 Primary pulmonary hypertension; R04.2 Hemoptysis; E87.5 Hyperkalemia; E11.22 Type 2 diabetes mellitus with diabetic chronic kidney disease; N18.3 Chronic kidney disease, stage 3 (moderate); N14.1 Nephropathy induced by other drugs, medicaments and biological substances; I69.398 Other sequelae of cerebral infarction; H54.61 Unqualified visual loss, right eye, normal vision left eye; R06.89 Other abnormalities of breathing; I25.10 Atherosclerotic heart disease of native coronary artery without angina pectoris; E03.9 Hypothyroidism, unspecified; F41.9 Anxiety disorder, unspecified; E78.5 Hyperlipidemia, unspecified; T50.8X5A Adverse effect of diagnostic agents, initial encounter; F17.210 Nicotine dependence, cigarettes, uncomplicated; R09.02 Hypoxemia; D53.9 Nutritional anemia, unspecified; M10.9 Gout, unspecified; Z85.3 Personal history of malignant neoplasm of breast; Z95.1 Presence of aortocoronary bypass graft; Z79.01 Long term (current) use of anticoagulants; Z95.2 Presence of prosthetic heart valve; Z90.10 Acquired absence of unspecified breast and nipple; Z79.84 Long term (current) use of oral hypoglycemic drugs; D64.9 Anemia, unspecified; I27.20 Pulmonary hypertension, unspecified; I70.1 Atherosclerosis of renal artery
CPT/HCPCS: 36415; 71046; 71250; 80048; 80053; 81001; 82040; 82570; 82803; 82962; 83735; 83880; 84300; 85025; 85027; 85610; 85730; 87633; 93005; 93306; 93457; 93567; 93970; 94640; 97110; 97116; 97162; 97165; 97530; 97535; 97802; 99152; 99153; 99406; J7030; J7040; A4216; C1751; C1769; C1894; J1940; Q9967

== ENCOUNTER → 2018-03-16 16:14 | Outpatient (CLI) | payer MEDICARE, SELFPAY ==
[2018-03-16 17:11] LABS: Anion Gap 7 (5-15); BUN 47 mg/dL (7-18); BUN/Creat Ratio 21.2 RATIO (10-20); Calcium,Total 8.2 mg/dL (8.5-10.1); Chloride 110 mmol/L (98-107); Creatinine, Serum 2.22 mg/dL (0.55-1.02); EST Glomerular Filtration Rate 23 mL/min (>60); Est Glom Filt Rate - Afr Amer 28 mL/min (>60); Glucose 179 mg/dL (74-106); Potassium 4.8 mmol/L (3.5-5.1); Sodium Level 142 mmol/L (136-145)
[2018-03-16 17:58] LABS: BNP,B-Type NATRIURETIC PEPTIDE > 5000.0 pg/mL (0-100)
== END ==
PROVIDERS: Family Provider Family Medicine; PCP Family Medicine; Visit Provider Physician Assistant Medical
DX: I25.10 Atherosclerotic heart disease of native coronary artery without angina pectoris (principal); I50.9 Heart failure, unspecified; N18.3 Chronic kidney disease, stage 3 (moderate); R41.82 Altered mental status, unspecified
CPT/HCPCS: 36415; 80048; 82140; 83880